=== PATIENT | female | born 1940 | race Caucasian/White ===

== ENCOUNTER 2016-06-22 11:58 | Observation (INO) | payer MEDICARE, BC ==
[2016-06-22] MEDS ORDERED: Sodium Chloride 0.9% 10 ML Syringe FLUSH PRN (12:10)
[2016-06-22] MEDS ORDERED: Aspirin 81 MG Tab.Chew PO ONE (12:12)
[2016-06-22] MEDS ORDERED: Morphine 4 MG/ML Syringe IVPUSH PRN (12:13)
[2016-06-22] MEDS: Nitroglycerin 0.4 MG Tab.SL SL PRN ×2 (12:20→12:37)
--- NOTE | 2016-06-22 12:22 | EDM.PDOC ---
ED HPI GENERAL MEDICAL PROBLEM - General Chief Complaint: Chest Pain Stated Complaint: PAIN; SOB Time Seen by Provider: 06/22/16 12:05 Source of Information: Reports: Patient History Limitations: Reports: No Limitations - History of Present Illness INITIAL COMMENTS - FREE TEXT/NARRATIVE: Felisha is a 75 year old female who presents to the ED today with c/o sudden onset of left sided chest pain that started at 0730 this morning. Patient reports pain as steady, sharp, radiates to left scapula region and left jaw. Patient endorses shortness of breath as well. Patient reports pain mildly increases with deep breath. She denies any cardiac hx, states had stress test/ echo 9 years ago, she has 2 siblings that have both had heart attacks. Patient denies smoking hx. Patient does have hx of HTN and high cholesterol and is on medication for both of these, she does not take any aspirin or blood thinners. She denies any known aneurysm hx or clotting hx. Patient denies any recent illness/vomiting/diarrhea/fever. Patient does endorse a cough which she reports is chronic secondary to her asthma hx. Onset: Today Onset Time: 07:30 Duration: Hour(s): Location: Reports: Chest Quality: Reports: Ache, Sharp Severity: Moderate Improves with: Reports: Rest, Other (sitting up) Associated Symptoms: Reports: Shortness of Breath Chest Pain Score (Numeric/FACES): 4 - Related Data Allergies Allergy/AdvReac Type Severity Reaction Status Date / Time fluticasone propionate Allergy Unknown Cannot Verified 06/22/16 12:14 [From Advair Diskus] Remember salmeterol xinafoate Allergy Unknown Cannot Verified 06/22/16 12:14 [From Advair Diskus] Remember Sulfa (Sulfonamide Allergy Rash Verified 06/22/16 12:14 Antibiotics) Home Meds: Home Meds Albuterol [Proventil HFA] 1 puff INH QID PRN 08/24/13 [History] Albuterol [Proventil Neb Soln] 0.083 mg NEB Q4HRRT PRN 08/24/13 [History] Fluticasone Propionate [Flovent] 2 puff IH BID 08/24/13 [History] Losartan/Hydrochlorothiazide [Hyzaar 50-12.5 Tablet] 1 each PO DAILY 08/24/13 [ History] Omeprazole [Prilosec] 20 mg PO BID 08/24/13 [History] Potassium Chloride 20 meq PO BID 08/24/13 [History] Theophylline Anhydrous [Theophylline] 300 mg PO DAILY 08/24/13 [History] Triamcinolone Acetonide [Triamcinolone Acetonide 0.1% Crm] 0 gm TOP TID [History] amLODIPine [Norvasc] 5 mg PO DAILY 08/24/13 [History] ED ROS GENERAL - Review of Systems Review Of Systems: See Below Constitutional: Reports: No Symptoms HEENT: Reports: No Symptoms Respiratory: Reports: Shortness of Breath Cardiovascular: Reports: Chest Pain Endocrine: Reports: No Symptoms GI/Abdominal: Reports: No Symptoms : Reports: No Symptoms Musculoskeletal: Reports: No Symptoms, Back Pain Skin: Reports: No Symptoms Neurological: Reports: No Symptoms Psychiatric: Reports: No Symptoms Hematologic/Lymphatic: Reports: No Symptoms Immunologic: Reports: No Symptoms ED EXAM, GENERAL - Physical Exam Exam: See Below Exam Limited By: No Limitations General Appearance: Alert, Anxious Ears: Normal External Exam Nose: Normal Inspection Throat/Mouth: Normal Inspection Head: Atraumatic Neck: Normal Inspection Respiratory/Chest: No Respiratory Distress, Lungs Clear, Normal Breath Sounds Cardiovascular: Normal Peripheral Pulses, Regular Rate, Rhythm, No Edema GI/Abdominal: Normal Bowel Sounds, Soft, Non-Tender Back Exam: Normal Inspection Extremities: Normal Inspection Neurological: Alert, Oriented, CN II-XII Intact Psychiatric: Anxious Skin Exam: Warm, Dry EKG INTERPRETATION Rhythm: NSR [place]: LAD-left axis deviation P-wave: present QRS: normal ST-T: normal QT: normal EKG Interpretation Comments: No acute ischemic findings. Course - Vital Signs Text/Narrative:: Felisha is a 75 year old female with a hx of HTN, high cholesterol, and Asthma who presents to the ED today with c/o sharp left sided chest pain that started at 0730 this morning. Patient reports pain has remained steady since that time. Please refer to HPI and focused exam. Concern given risk factors, including family hx of ACS. EKG was obtained on patient arrival which is negative for any acute ischemic findings. Patient was given 2 NTG which relieved her pain. She was also given 324 mg of aspirin and 4 mg of morphine. 1300-Initial troponin is undectable. Remaining blood work shows a mildly elevated BNP of 229 and a potassium of 3.5. AlkPhos elevated at 170. Awaiting D dimer result. Patient remains stable at this time. 1325-D Dimer elevated at 585, CT angio obtained and is negative for any PE. Small groundglass opacity in RUL. Mild distal esophageal dilations, likely secondary to hx of hiatal hernia repair. Heart score is 6. I feel at this time with patient's hx and Heart Score, she is appropriate for admission and serial troponins, patient will likely need outpatient stress on Saturday as long as stay here is uneventful. Patient agreeable to stay. Patient did have cardiac cath in 2011 with EF of 65-70% and otherwise clear coronary arteries. Patient at this time 1400, remains chest pain free. I discussed patient with Dr. Johnson, hospitalist, who has accepted patient for admission. Patient will be admitted in stable condition. Last Recorded V/S: Last Vital Signs Temp 36.0 C 06/22/16 12:06 Pulse 94 06/22/16 12:06 Resp 20 06/22/16 12:06 BP 160/88 H 06/22/16 12:37 Pulse Ox 97 06/22/16 12:06 - Orders/Labs/Meds Orders: Active Orders 24 hr Category Date Time Status Cardiac Monitoring [RC] .As Directed Care 06/22/16 12:12 Active EKG Documentation Completion [RC] ASDIRECTED Care 06/22/16 12:10 Active Oxygen Therapy Adult [Oxygen Therapy, ED] [RC] Care 06/22/16 12:12 Active ASDIRECTED Peripheral IV Care [RC] . DIRECTED Care 06/22/16 12:10 Active Ang Chest [CT] Stat Exams 06/22/16 13:14 Taken Iopamidol [Isovue-370 (76%)] Med 06/22/16 13:30 Active 100 ml IV . DIRECTED Morphine Med 06/22/16 12:13 Active 4 mg IVPUSH Q4H PRN Sodium Chloride 0.9% [Normal Saline] 100 ml Med 06/22/16 13:30 Active IV ASDIRECTED Sodium Chloride 0.9% [Saline Flush] Med 06/22/16 12:10 Active 10 ml FLUSH ASDIRECTED PRN Peripheral IV Insertion Adult [OM.PC] Routine Oth 06/22/16 12:10 Ordered EKG 12 Lead [EK] Stat Ther 06/22/16 12:10 Ordered Medication Orders Sodium Chloride (Normal Saline) 100 mls @ 4 mls/sec IV ASDIRECTED [facility] Last Admin: 06/22/16 13:25 Dose: 4 mls/sec Iopamidol (Isovue-370 (76%)) 100 ml IV . DIRECTED [facility] Last Admin: 06/22/16 13:25 Dose: 100 ml Morphine Sulfate (Morphine) 4 mg IVPUSH Q4H PRN PRN Reason: Chest Pain Sodium Chloride (Saline Flush) 10 ml FLUSH ASDIRECTED PRN PRN Reason: Keep Vein Open Labs: Laboratory Tests 06/22/16 06/22/16 06/22/16 Range/Units 12:10 12:10 12:10 WBC 8.0 (4.5-11.0) K/uL RBC 4.57 (3.30-5.50) M/uL Hgb 14.3 (12.0-15.0) g/dL Hct 41.5 (36.0-48.0) % MCV 91 (80-98) fL MCH 31 (27-31) pg MCHC 35 (32-36) % Plt Count 247 (150-400) K/uL Neut % (Auto) 53 (36-66) % Lymph % (Auto) 28 (24-44) % [place] % (Auto) 12 H (2-6) % Eos % (Auto) 6 H (2-4) % Baso % (Auto) 1 (0-1) % D-Dimer, Quantitative 585 H (0.0-400.0) ng/mL Sodium 144 (140-148) mmol/L Potassium 3.5 L (3.6-5.2) mmol/L Chloride 106 (100-108) mmol/L Carbon Dioxide 27 (21-32) mmol/L Anion Gap 14.5 H (5.0-14.0) mmol/L BUN 15 (7-18) mg/dL Creatinine 0.9 (0.6-1.0) mg/dL Est Cr Clr Drug Dosing 47.36 mL/min Estimated GFR (MDRD) > 60 (>60) Glucose 104 (74-106) mg/dL Calcium 8.6 (8.5-10.1) mg/dL Magnesium 1.9 (1.8-2.4) mg/dL Total Bilirubin 0.3 (0.2-1.0) mg/dL AST 22 (15-37) U/L ALT 27 (12-78) U/L Alkaline Phosphatase 170 H (46-116) U/L Troponin I < 0.017 (0.000-0.056) ng/mL Khb-A-[id number] Pept 229 H (5-125) pg/mL Total Protein 6.9 (6.4-8.2) g/dL Albumin 3.6 (3.4-5.0) g/dL Globulin 3.3 (2.3-3.5) g/dL Albumin/Globulin Ratio 1.1 L (1.2-2.2) Meds: Medications Generic Name Dose Route Start Last Admin Trade Name Freq PRN Reason Stop Dose Admin Sodium Chloride 100 mls @ 4 mls/sec 06/22/16 13:30 06/22/16 13:25 Normal Saline IV 4 mls/sec ASDIRECTED BETY Administration Iopamidol 100 ml 06/22/16 13:30 06/22/16 13:25 Isovue-370 (76%) IV 100 ml . DIRECTED BETY Administration Morphine Sulfate 4 mg 06/22/16 12:13 Morphine IVPUSH Q4H PRN Chest Pain Sodium Chloride 10 ml 06/22/16 12:10 Saline Flush FLUSH ASDIRECTED PRN Keep Vein Open Discontinued Medications Generic Name Dose Route Start Last Admin Trade Name Freamber PRN Reason Stop Dose Admin Aspirin 324 mg 06/22/16 12:12 06/22/16 12:19 Aspirin PO 06/22/16 12:13 324 mg ONETIME ONE Administration Nitroglycerin 0.4 mg 06/22/16 12:13 06/22/16 12:37 Nitrostat SL 06/22/16 12:24 0.4 mg Q5M PRN Administration Chest Pain Sodium Chloride 10 ml 06/22/16 13:17 06/22/16 13:25 Saline Flush FLUSH 06/22/16 13:18 10 ml ONETIME ONE Administration Departure - Departure Time of Disposition: 14:30 Disposition: Admitted As Inpatient 67 Condition: good Clinical Impression: Atypical chest pain Forms: ED Department Discharge - My Orders Last 24 Hours: My Active Orders 06/22/16 12:10 EKG Documentation Completion [RC] ASDIRECTED Peripheral IV Care [RC] . DIRECTED Sodium Chloride 0.9% [Saline Flush] 10 ml FLUSH ASDIRECTED PRN Peripheral IV Insertion Adult [OM.PC] Routine EKG 12 Lead [EK] Stat 06/22/16 12:12 Cardiac Monitoring [RC] .As Directed Oxygen Therapy Adult [Oxygen Therapy, ED] [RC] ASDIRECTED 06/22/16 12:13 Morphine 4 mg IVPUSH Q4H PRN 06/22/16 13:14 Ang Chest [CT] Stat 06/22/16 13:30 Iopamidol [Isovue-370 (76%)] 100 ml IV . DIRECTED Sodium Chloride 0.9% [Normal Saline] 100 ml IV ASDIRECTED - Assessment/Plan Last 24 Hours: My Active Orders 06/22/16 12:10 EKG Documentation Completion [RC] ASDIRECTED Peripheral IV Care [RC] . DIRECTED Sodium Chloride 0.9% [Saline Flush] 10 ml FLUSH ASDIRECTED PRN Peripheral IV Insertion Adult [OM.PC] Routine EKG 12 Lead [EK] Stat 06/22/16 12:12 Cardiac Monitoring [RC] .As Directed Oxygen Therapy Adult [Oxygen Therapy, ED] [RC] ASDIRECTED 06/22/16 12:13 Morphine 4 mg IVPUSH Q4H PRN 06/22/16 13:14 Ang Chest [CT] Stat 06/22/16 13:30 Iopamidol [Isovue-370 (76%)] 100 ml IV . DIRECTED Sodium Chloride 0.9% [Normal Saline] 100 ml IV ASDIRECTED
[2016-06-22] MEDS ORDERED: Sodium Chloride 0.9% 10 ML Syringe FLUSH ONE (13:17)
[2016-06-22] MEDS ORDERED: Sodium Chloride 0.9% 100 ML IV SCH (13:30)
[2016-06-22] MEDS ORDERED: Iopamidol 755 Mg/ML 100 ML Bottle IV SCH (13:30)
--- NOTE | 2016-06-22 13:58 | CT ---
Ang Chest INDICATION: R/O Clot, elevated D dimer, chest pain TECHNIQUE: CT chest performed with IV contrast using CTA protocol. 3D radial and/or 3D sagittal MS P images reconstructions were obtained and reviewed. DLP: 437 mGycm COMPARISON: None. FINDINGS: No evidence of pulmonary embolism. Scattered groundglass infiltrates in the lungs. 10 mm groundglass nodule in the right upper lobe, axial image 47. Postoperative changes at the gastroesophageal junction. There is a hiatal hernia. The esophagus is d ilated and fluid-filled. Coronary artery calcifications. No pleural effusions. Fatty replaced pancreas. Degenerative change in the thoracic spine and vertebroplasty changes at T7. IMPRESSION: 1. No evidence of pulmonary embolism. 2. Small ground glass nodule right upper lobe. Recommend follow-up CT chest without IV contrast in 3 months. 3. Ground glass infiltrates elsewhere in the lungs may represent mild pulmonary edema. 4. Postoperative changes at the GE junction, hiatal hernia, and dilated fluid-filled esophagus. Plea se correlate with surgical history. Discussed with ED provider mediately following the study.
--- NOTE | 2016-06-22 14:46 | PCM.HP ---
H&P History of Present Illness - General Date of Service: 06/22/16 Admit Problem/Dx: Admission Diagnosis/Problem Admission Diagnosis/Problem Chest pain Source of Information: Patient, Family, Provider History Limitations: Reports: No Limitations - History of Present Illness Initial Comments - Free Text/Narative: Felisha presents to the emergency room today with an episode of chest pain. Pain started earlier this morning, approximately 7 AM (about 5 hours before presentation). She describes this as a bandlike pressure/pain around her chest with the most intense sensation in the substernal area. She describes this as a moderate pain but did throughout the morning radiate to the left side of her chest and into her neck and jaw and into her left shoulder. She did feel short of breath when the pain was at its highest intensity. She did not report nausea , diaphoresis or palpitations. The pain started while she was doing her morning exercises which she tries to do most days. The pain did not improve with rest. She did not take anything at home to help with the pain. The pain was finally relieved after 2 nitroglycerin in the emergency room. She has had a similar but much less intense pain approximately 2 weeks ago. She has noticed that her heartburn has been worse the past couple of weeks but has not had difficulties with pain like this in the past. No fevers or chills. No cough. Mild ankle edema that progresses throughout the day and does better in the morning. Workup in the emergency room revealed an EKG with poor R-wave progression with a very slight change from previous but troponin was normal and vital signs have been stable. D-dimer was mildly elevated but CT pulmonary angiogram did not show a blood clot. The CT did show very mild possible pulmonary edema and a small hazy right lung nodule which was thought to be inflammatory. She is pain- free after 2 nitroglycerin. She'll be admitted for observation. Chest Pain Score (Numeric/FACES): 4 - Related Data Allergies/Adverse Reactions: Allergies Allergy/AdvReac Type Severity Reaction Status Date / Time fluticasone propionate Allergy Unknown Cannot Verified 06/22/16 12:14 [From Advair Diskus] Remember salmeterol xinafoate Allergy Unknown Cannot Verified 06/22/16 12:14 [From Advair Diskus] Remember Sulfa (Sulfonamide Allergy Rash Verified 06/22/16 12:14 Antibiotics) Home Medications: Home Meds Albuterol [Proventil HFA] 1 puff INH QID PRN 08/24/13 [History] Albuterol [Proventil Neb Soln] 0.083 mg NEB Q4HRRT PRN 08/24/13 [History] Fluticasone Propionate [Flovent] 2 puff IH BID 08/24/13 [History] Losartan/Hydrochlorothiazide [Hyzaar 50-12.5 Tablet] 1 each PO DAILY 08/24/13 [ History] Omeprazole [Prilosec] 20 mg PO BID 08/24/13 [History] Potassium Chloride 20 meq PO BID 08/24/13 [History] Theophylline Anhydrous [Theophylline] 300 mg PO DAILY 08/24/13 [History] Triamcinolone Acetonide [Triamcinolone Acetonide 0.1% Crm] 0 gm TOP TID [History] amLODIPine [Norvasc] 5 mg PO DAILY 08/24/13 [History] Past Medical History HEENT History: Reports: Impaired Vision Cardiovascular History: Reports: High Cholesterol, Hypertension Respiratory History: Reports: Asthma Gastrointestinal History: Reports: GERD Genitourinary History: Reports: Urinary Incontinence [employer] History: Reports: Dysfunctional Uterine Bleeding Musculoskeletal History: Reports: Arthritis Neurological History: Reports: Migraines Oncologic (Cancer) History: Reports: Other (See Below) Other Oncologic History: vocal cords Dermatologic History: Reports: Psoriasis - Infectious Disease History Infectious Disease History: Reports: Chicken Pox, Hepatitis A, Measles, Mumps - Past Surgical History HEENT Surgical History: Reports: Other (See Below) Other HEENT Surgeries/Procedures: 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 right hip Social & Family History - Family History Cardiac: Reports: CAD (sister, brother in his 60's, mom later in life) - Tobacco Use Smoking Status *Q: Never Smoker - Caffeine Use Caffeine Use: Reports: None - Alcohol Use Alcohol Use History: No - Recreational Drug Use Recreational Drug Use: No H&P Review of Systems - Review of Systems: Review Of Systems: See Below Free Text/Narrative: A complete 12 point review of systems was obtained. Pertinent positives and negatives are noted in the history of present illness. All other systems were reviewed and were negative except as noted. Exam - Exam Exam: See Below - Vital Signs Vital Signs: Last Vital Signs Temp 36.0 C 06/22/16 12:06 Pulse 80 06/22/16 13:50 Resp 15 06/22/16 13:50 BP 134/98 H 06/22/16 13:50 Pulse Ox 97 06/22/16 13:50 Weight: 77.111 kg - Exam Quality Assessment: Supplemental Oxygen General: Alert, Oriented, Cooperative. No: Mild Distress HEENT: Conjunctiva Clear, Mucosa Moist & [place]. No: Scleral Icterus Neck: Supple, Trachea Midline. No: Lymphadenopathy, JVD, Thyromegaly Lungs: Clear to Auscultation, Normal Respiratory Effort Cardiovascular: Regular Rate, Regular Rhythm, Other (mild tenderness with palpation of anterior chest ). No: Systolic Murmur Abdomen: Normal Bowel Sounds, Soft. No: Distention, Tenderness Back Exam: Normal Inspection, Full Range of Motion, Other (healed midline lumbar scar) Extremities: Normal Pulses, Edema (mild ankle edema). No: Cyanosis Skin: Warm, Dry Neuro Extensive - Mental Status: Alert, Oriented x3, Nl Response to Commands Neuro Extensive - Motor, Sensory, Reflexes: CN II-XII Intact. No: Dysarthria, Abnormal Motor, Tremor Psychiatric: Alert, Normal Affect - Patient Data Lab Results last 24 hrs: Laboratory Results - last 24 hr 06/22/16 06/22/16 06/22/16 Range/Units 12:10 12:10 12:10 WBC 8.0 (4.5-11.0) K/uL RBC 4.57 (3.30-5.50) M/uL Hgb 14.3 (12.0-15.0) g/dL Hct 41.5 (36.0-48.0) % MCV 91 (80-98) fL MCH 31 (27-31) pg MCHC 35 (32-36) % Plt Count 247 (150-400) K/uL Neut % (Auto) 53 (36-66) % Lymph % (Auto) 28 (24-44) % [place] % (Auto) 12 H (2-6) % Eos % (Auto) 6 H (2-4) % Baso % (Auto) 1 (0-1) % D-Dimer, Quantitative 585 H (0.0-400.0) ng/mL Sodium 144 (140-148) mmol/L Potassium 3.5 L (3.6-5.2) mmol/L Chloride 106 (100-108) mmol/L Carbon Dioxide 27 (21-32) mmol/L Anion Gap 14.5 H (5.0-14.0) mmol/L BUN 15 (7-18) mg/dL Creatinine 0.9 (0.6-1.0) mg/dL Est Cr Clr Drug Dosing 47.36 mL/min Estimated GFR (MDRD) > 60 (>60) Glucose 104 (74-106) mg/dL Calcium 8.6 (8.5-10.1) mg/dL Magnesium 1.9 (1.8-2.4) mg/dL Total Bilirubin 0.3 (0.2-1.0) mg/dL AST 22 (15-37) U/L ALT 27 (12-78) U/L Alkaline Phosphatase 170 H (46-116) U/L Troponin I < 0.017 (0.000-0.056) ng/mL Iyt-O-Ebomkmpjoew Pept 229 H (5-125) pg/mL Total Protein 6.9 (6.4-8.2) g/dL Albumin 3.6 (3.4-5.0) g/dL Globulin 3.3 (2.3-3.5) g/dL Albumin/Globulin Ratio 1.1 L (1.2-2.2) Result Diagrams: 06/22/16 12:10 06/22/16 12:10 Imaging Impressions last 24 hrs: CT pulmonary angiogram - images personally reveiwed - no PE. mild interstitial edema, hazy right nodule. no mass or infiltrate EKG INTERPRETATION EKG Date: 06/22/16 Rhythm: NSR Rate (beats/min): 99 Portal: LAD-left axis deviation P-wave: present QRS: normal ST-T: normal QT: normal EKG Interpretation Comments: poor R wave progression *Q Meaningful Use (ADM) - VTE *Q VTE Criteria *Q: - VTE Risk Assess *Q Each Risk Factor Represents 1 Point: None Total Score 1 Point Risk Factors: 0 Each Risk Factor Represents 2 Points: Age 60 - 74 Years Total Score 2 Point Risk Factors: 2 Each Risk Factor Represents 3 Points: None Total Score 3 Point Risk Factors: 0 - Stroke *Q Stroke Criteria *Q: - AMI *Q AMI Criteria *Q: - Problem List (1) Chest pain SNOMED Code(s): 99184717 ICD Code: R07.9 - CHEST PAIN, UNSPECIFIED Status: Acute Current Visit: Yes Qualifiers: Chest pain type: other chest pain Qualified Code(s): R07.89 - Other chest pain; R07.8 - Other chest pain (2) Essential hypertension SNOMED Code(s): 94780098 ICD Code: I10 - ESSENTIAL (PRIMARY) HYPERTENSION Status: Chronic Current Visit: Yes Problem List Initiated/Reviewed/Updated: Yes Orders Last 24hrs: Active Orders 24 hr Category Date Time Status Patient Status Manage Transfer [TRANSFER] Routine ADT 06/22/16 14:37 Ordered Cardiac Monitoring [RC] .As Directed Care 06/22/16 12:12 Active EKG Documentation Completion [RC] ASDIRECTED Care 06/22/16 12:10 Active Oxygen Therapy Adult [Oxygen Therapy, ED] [RC] Care 06/22/16 12:12 Active ASDIRECTED Peripheral IV Care [RC] . DIRECTED Care 06/22/16 12:10 Active Iopamidol [Isovue-370 (76%)] Med 06/22/16 13:30 Active 100 ml IV . DIRECTED Morphine Med 06/22/16 12:13 Active 4 mg IVPUSH Q4H PRN Sodium Chloride 0.9% [Normal Saline] 100 ml Med 06/22/16 13:30 Active IV ASDIRECTED Sodium Chloride 0.9% [Saline Flush] Med 06/22/16 12:10 Active 10 ml FLUSH ASDIRECTED PRN Peripheral IV Insertion Adult [OM.PC] Routine Oth 06/22/16 12:10 Ordered Resuscitation Status Routine Resus Stat 06/22/16 14:39 Ordered EKG 12 Lead [EK] Stat Ther 06/22/16 12:10 Ordered Medication Orders Sodium Chloride (Normal Saline) 100 mls @ 4 mls/sec IV ASDIRECTED BETY Last Admin: 06/22/16 13:25 Dose: 4 mls/sec Iopamidol (Isovue-370 (76%)) 100 ml IV . DIRECTED BETY Last Admin: 06/22/16 13:25 Dose: 100 ml Morphine Sulfate (Morphine) 4 mg IVPUSH Q4H PRN PRN Reason: Chest Pain Sodium Chloride (Saline Flush) 10 ml FLUSH ASDIRECTED PRN PRN Reason: Keep Vein Open Assessment/Plan Comment:: Assessment and plan - Chest pain - somewhat atypical but still has concerning features. She does have elevated risk factors including age, family history, high blood pressure and elevated cholesterol levels. She has noticed fatigue recently as well as some limited exercise status but has not had much in the way of chest pain other than today and one other minor episode which occurred at rest. Most recent risk stratification was about 5 years ago which showed a coronary angiogram with no evidence for disease. 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 Gastrointestinal issues such as esophageal reflux certainly would be in the differential with increased heartburn recently. -Serial troponins -Cardiac monitoring -Continue blood pressure management -Continue home proton pump inhibitor -Outpatient stress testing Essential hypertension - Blood pressure acceptably controlled at this time. -Continue home medications Maintenance issues - - DVT prophylaxis - SCDs - GI prophylaxis - PPI - Nutrition - regular diet - Fink catheter - not indicated CODE STATUS - full code Admission justification - patient will be referred observation status for chest pain rule out Disposition - anticipate discharge home tomorrow Primary care physician - Dr. Ubaldo Johnson M.D.
[2016-06-22] MEDS ORDERED: Acetaminophen 325 MG Tab PO PRN (15:10)
[2016-06-22] MEDS ORDERED: Ibuprofen 600 MG Tab PO PRN (15:10)
[2016-06-22] MEDS ORDERED: Polyethylene Glycol 3350 Powder 17 GM Packet PO PRN (15:10)
[2016-06-22] MEDS ORDERED: Ondansetron 4 MG Tab.DIS PO PRN (15:10)
[2016-06-22] MEDS ORDERED: OMEPRAZOLE 20 MG PO SCH (21:00)
[2016-06-22] MEDS ORDERED: Potassium Chloride 20 MEQ Tab.ER ** OWN MED PO SCH (21:00)
[2016-06-22] MEDS ORDERED: LOSARTAN PO SCH (21:00)
[2016-06-22] MEDS ORDERED: HYDROCHLOROTHIAZIDE PO SCH (21:00)
[2016-06-22] MEDS ORDERED: Albuterol 0.083% 2.5 MG/3 ML Neb Soln INH PRN (21:00)
[2016-06-22] MEDS ORDERED: Non-Formulary Medication 1 Each (Fluticasone Propionate [Flovent] 2 PUFF) IH SCH (21:00)
[2016-06-22] MEDS ORDERED: AMLODIPINE 5 MG PO SCH (21:00)
[2016-06-22] MEDS ORDERED: amLODIPine 5 MG Tab PO ONE (21:00)
[2016-06-23] MEDS ORDERED: OMEPRAZOLE 20 MG PO SCH (07:30)
[2016-06-23] MEDS ORDERED: Potassium Chloride 20 MEQ Tab.ER ** OWN MED PO SCH (08:00)
[2016-06-23 08:22] VITALS: BP 154/71
[2016-06-23] MEDS ORDERED: THEOPHYLLINE ANHYDROUS 300 MG PO SCH (09:00)
--- NOTE | 2016-06-23 09:21 | PCM.DCSUM1 ---
Discharge Summary - Hospital Course Brief History: 75-year-old female history of mild hypercholesterolemia, essential hypertension and a family history of heart disease who presented after an episode of intense chest pain. She was admitted for observation and further workup. - Discharge Data Discharge Date: 06/23/16 Discharge Disposition: Home, Self-Care 01 Condition: Stable - Discharge Diagnosis/Problem(s) (1) Chest pain SNOMED Code(s): 06581965 ICD Code: R07.9 - CHEST PAIN, UNSPECIFIED Status: Acute Current Visit: Yes Qualifiers: Chest pain type: other chest pain Qualified Code(s): R07.89 - Other chest pain; R07.8 - Other chest pain (2) Essential hypertension SNOMED Code(s): 99555896 ICD Code: I10 - ESSENTIAL (PRIMARY) HYPERTENSION Status: Chronic Current Visit: Yes - Patient Summary/Data Hospital Course: Felisha presented to the emergency room with fairly intense chest pain/pressure. Workup in the emergency room was reassuring and her pain resolved after a second nitroglycerin tablet. Given the intensity of the pain she was admitted for observation. Overnight she did not have any recurrence of the pain. Telemetry was normal. Blood pressure very mildly elevated in the 150s but otherwise vital signs were stable. She has not had recurrent episodes of the pain. She has had some belching and feels better after each belch. And this may be gastrointestinal in nature but I think given the intensity of the pain and recent difficulties with fatigue she would benefit from a stress test. We have set her up for a Lexiscan stress test to be completed Saturday morning. She will followup with Dr. Conner to get results. If the stress test is normal and she continues to have symptoms or recurrent episodes of pain I would recommend upper endoscopy because the CT scan did show some fluid in the esophagus. She is safe for outpatient management at this time. She will be discharged home with her family this morning. - Patient Instructions Diet: Heart Healthy Diet Activity: As Tolerated Driving: May Drive Today Showering/Bathing: May Shower Notify Provider of: Fever, Increased Pain, Nausea and/or Vomiting Other/Special Instructions: 1. You were in the hospital for observation after an episode of chest pain. There was no evidence that she had a heart attack. I am concerned that this may be a warning sign that there are blockages in your coronary arteries and recommended that we complete a stress test. You are scheduled for a Lexiscan stress test Saturday. Please arrive at the health care social worker unit at 7:15 AM. If the stress test is normal and you continue to have increased heartburn symptoms or recurrent episodes of the pain that brought you to the emergency room I would recommend upper endoscopy. This is a procedure where Dr. Zarate would advance a flexible tube with a camera through your mouth and down into the esophagus to look at the esophagus and stomach. 2. Please continue your home medications as previously prescribed. 3. Please seek medical attention if you develop recurrent episodes of your intense chest pain/pressure or you develop sudden onset of shortness of breath, diaphoresis or feel like you are going to pass out. - Discharge Plan Home Medications: Home Meds Albuterol [Proventil HFA] 1 puff INH QID PRN 08/24/13 [History] Albuterol [Proventil Neb Soln] 0.083 mg NEB Q4HRRT PRN 08/24/13 [History] Fluticasone Propionate [Flovent] 2 puff IH BID 08/24/13 [History] Losartan/Hydrochlorothiazide [Hyzaar 50-12.5 Tablet] 1 each PO DAILY 08/24/13 [ History] Omeprazole [Prilosec] 20 mg PO BID 08/24/13 [History] Potassium Chloride 20 meq PO BID 08/24/13 [History] Theophylline Anhydrous [Theophylline] 300 mg PO DAILY 08/24/13 [History] Triamcinolone Acetonide [Kenalog 0.1% Crm] 0 gm TOP TID 08/24/13 [History] amLODIPine [Norvasc] 5 mg PO DAILY 08/24/13 [History] Patient Handouts: Nonspecific Chest Pain Referrals: Mark Conner MD [Physician] - (f/u next Saturday or Saturday - f/u hospital stay for chest pain, stress test results and BP check) - Discharge Summary/Plan Comment DC Time >30 min.: No (25) - Patient Data Vitals - Most Recent: Last Vital Signs Temp 35.8 C 06/23/16 08:00 Pulse 69 06/23/16 08:00 Resp 19 06/23/16 08:00 BP 154/71 H 06/23/16 08:00 Pulse Ox 93 L 06/23/16 08:00 Weight - Most Recent: 77.111 kg I&O - Last 24 hours: Intake & Output 06/22/16 06/23/16 06/23/16 22:59 06:59 14:59 Intake Total 480 Output Total 500 1000 Balance -20 -1000 Lab Results - Last 24 hrs: Laboratory Results - last 24 hr 06/22/16 06/22/16 Range/Units 17:03 23:00 Troponin I < 0.017 < 0.017 (0.000-0.056) ng/mL Med Orders - Current: Current Medications Acetaminophen (Tylenol) 650 mg PO Q4H PRN PRN Reason: Pain (Mild 1-3)/fever Albuterol (Proventil Neb Soln) 2.5 mg INH Q4H PRN PRN Reason: Shortness of Breath Amlodipine Besylate (Norvasc) 5 mg PO DAILY@2099 [facility] Last Admin: 06/22/16 20:44 Dose: 5 mg Ibuprofen (Motrin) 600 mg PO Q6H PRN PRN Reason: Pain/Fever Non-Formulary Medication (Fluticasone Propionate [Flovent]) 2 puff IH BID [facility] Losartan/Hydrochlorothiazide [Hyzaar] 50-12.5mg * * Own Med 1 each PO DAILY@ 2099 [facility] Last Admin: 06/22/16 20:44 Dose: 1 each Non-Formulary Medication (Theophylline Anhydrous [Theophylline]) 300 mg PO DAILY [facility] Omeprazole [Prilosec ] 20mg Cap Own Med 20 mg PO BIDAC [facility] Last Admin: 06/23/16 07:55 Dose: 20 mg Ondansetron HCl (Zofran Odt) 4 mg PO Q6H PRN PRN Reason: Nausea able to take PO Polyethylene Glycol (Miralax) 17 gm PO DAILY PRN PRN Reason: Constipation Potassium Chloride (Klor-Con M20) 20 meq PO BIDMEALS [facility] Last Admin: 06/23/16 07:55 Dose: 20 meq Discontinued Medications Aspirin (Aspirin) 324 mg PO ONETIME ONE Stop: 06/22/16 12:13 Last Admin: 06/22/16 12:19 Dose: 324 mg Sodium Chloride (Normal Saline) 100 mls @ 4 mls/sec IV ASDIRECTED [facility] Last Admin: 06/22/16 13:25 Dose: 4 mls/sec Iopamidol (Isovue-370 (76%)) 100 ml IV . DIRECTED [facility] Last Admin: 06/22/16 13:25 Dose: 100 ml Morphine Sulfate (Morphine) 4 mg IVPUSH Q4H PRN PRN Reason: Chest Pain Nitroglycerin (Nitrostat) 0.4 mg SL Q5M PRN PRN Reason: Chest Pain Stop: 06/22/16 12:24 Last Admin: 06/22/16 12:37 Dose: 0.4 mg Omeprazole [Prilosec ] 20mg Cap Own Med 20 mg PO BID [facility] Last Admin: 06/22/16 20:31 Dose: 20 mg Potassium Chloride (Klor-Con M20) 20 meq PO BID [facility] Last Admin: 06/22/16 20:30 Dose: 20 meq Sodium Chloride (Saline Flush) 10 ml FLUSH ASDIRECTED PRN PRN Reason: Keep Vein Open Sodium Chloride (Saline Flush) 10 ml FLUSH ONETIME ONE Stop: 06/22/16 13:18 Last Admin: 06/22/16 13:25 Dose: 10 ml *Q Meaningful Use (DIS) - VTE *Q VTE Criteria *Q: - Stroke *Q Stroke Criteria *Q: - AMI *Q AMI Criteria *Q:
== END 2016-06-23 10:37 | disposition home or self-care (01) ==
LOC: JP.ED 11:58 → JP.ICU 14:37
PROVIDERS: ADMIT Internal Medicine; ATTEND Internal Medicine
DX: R07.89 Other chest pain (principal); I10 Essential (primary) hypertension; Z79.899 Other long term (current) drug therapy; Z88.2 Allergy status to sulfonamides; Z88.8 Allergy status to other drugs, medicaments and biological substances; E78.00 Pure hypercholesterolemia, unspecified; J45.909 Unspecified asthma, uncomplicated; K21.9 Gastro-esophageal reflux disease without esophagitis; Z90.710 Acquired absence of both cervix and uterus; Z98.890 Other specified postprocedural states; Z96.649 Presence of unspecified artificial hip joint
CPT/HCPCS: 36415; 71275; 80053; 83735; 83880; 84484; 85025; 85379; 93005; 99285; A9270; G0378; J7030; J7050; Q9967; 93010; 96361; 96374; 99217; 99219

== ENCOUNTER 2016-07-12 05:20 | Day surgery (SDC) | payer MEDICARE, BC ==
[2016-07-12] MEDS ORDERED: Dextrose 5%-Lactated Ringers 1,000 ML IV SCH (06:30)
[2016-07-12] MEDS ORDERED: Propofol 200 MG/20 ML SDV ONE (07:04)
[2016-07-12] MEDS ORDERED: Glycopyrrolate 0.2 MG/ML 2 ML SYRINGE IVPUSH ONE (07:15)
[2016-07-12 08:40] VITALS: BP 161/83
--- NOTE | 2016-07-13 12:24 | OR ---
DATE OF PROCEDURE: 07/12/2016 PREOPERATIVE DIAGNOSIS: Gastroesophageal reflux disease. POSTOPERATIVE DIAGNOSES: 1. 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 2. Mild antral gastritis. OPERATIVE PROCEDURES: Esophagogastroduodenoscopy with; 1. Biopsies of esophagogastric junction for histologic evaluation. 2. Biopsies of antrum for CLOtest. ANESTHESIA: IV sedation. INDICATIONS FOR PROCEDURE: This is a 75-year-old female referred for upper endoscopy to evaluate her gastroesophageal reflux disease. She has had longstanding reflux disease, which up until recently was treated with omeprazole 20 mg b.i.d. She recently saw an ENT person who, on examination, felt she was probably having reflux affecting her hypopharynx and laryngeal area, and was started on Zantac. She feels this is helping somewhat in terms of improved symptom control. Plan is to proceed with upper GI endoscopy with biopsies as indicated. Potential risks including bleeding and perforation were discussed, and the patient wishes to proceed. DETAILS OF PROCEDURE: The patient was taken to the operating room and placed in a left lateral decubitus position. IV sedation was administered, after which, the upper GI endoscope was passed orally through the length of the esophagus and into the stomach with retroflexion view of the fundus, thereafter through the pyloric channel and into the proximal duodenum. Findings included some mild redness in the hypopharynx and laryngeal areas. Upper esophageal sphincter and esophageal body were unremarkable, other than small amount of retained liquid and little bit of solid food within the distal esophagus. The patient was noted to have roughly a 6-cm hiatal hernia and had a confluent upward extension of the gastroesophageal mucosal line for about 1 cm above the upper gastric fold. This was confluent circumferential upward extension. There was no plaque formation or other signs of neoplastic change per se and no stricturing present. Within the stomach, there was also small amount of retained food. There was some mild redness in the antrum. Otherwise, the duodenum at the junction of third and fourth portions was unremarkable. At this point, biopsies were obtained from the antrum and sent for CLOtest for H. pylori. Multiple biopsies were then obtained from esophagogastric junction and sent for histologic evaluation. Minimal bleeding from the biopsy sites was seen and the procedure then concluded. The plan will be to have the patient continue the present medical regimen, and we will see her back this coming Saturday to discuss long-term treatment options. Given the retained food in the stomach, one would be a little bit more vary than usual as far as antireflux procedure as we may be dealing to some extent some impaired gastric emptying. It might be if she remains symptomatic worthwhile getting something to augment gastric emptying before considering anything surgical. Lj Zarate MD /[id number]
== END 2016-07-12 08:50 | disposition home or self-care (01) ==
LOC: JP.SDS 05:20
PROVIDERS: ATTEND Surgery
DX: K29.50 Unspecified chronic gastritis without bleeding (principal); K44.9 Diaphragmatic hernia without obstruction or gangrene; K21.9 Gastro-esophageal reflux disease without esophagitis; Z88.2 Allergy status to sulfonamides; Z88.8 Allergy status to other drugs, medicaments and biological substances
CPT/HCPCS: 43239; 87081; J2704; J7042; 88305; 88312

== ENCOUNTER 2016-08-13 07:30 | Inpatient (IN) | payer MEDICARE, BC ==
[~2016-08-13 07:30] MED LIST: Bupivacaine 0.5%/EPINEPHrine 1:200,000 50 ML MDV ONE; Ropivacaine 40 ML, Dexamethasone 8 MG, EPINEPHrine 0.4 MG, Sodium Chloride 0.9% 37.6 ML NERVRT SCH; cefOXitin 2 GM in Sodium Chloride 0.9% 50 ML IV ONE
[2016-08-13] MEDS ORDERED: Celecoxib 200 MG Cap PO ONE (09:00)
[2016-08-13] MEDS ORDERED: Scopolamine 1.5 MG Transdermal Patch TOP SCH (09:00)
[2016-08-13] MEDS ORDERED: Albuterol/Ipratropium 3.0-0.5 MG/3 ML Neb Soln INH ONE (09:00)
[2016-08-13] MEDS ORDERED: Acetaminophen 325 MG Tab PO ONE (09:00)
[2016-08-13] MEDS ORDERED: Gabapentin 100 MG Cap PO ONE ×2 (09:00)
[2016-08-13] MEDS ORDERED: Dextrose 5%-Lactated Ringers 1,000 ML IV SCH (09:30)
[2016-08-13] MEDS ORDERED: Acetaminophen 500 MG Tab PO ONE (09:30)
[2016-08-13] MEDS ORDERED: cefOXitin 2 GM Vial ONE (09:35)
[2016-08-13] MEDS ORDERED: Lidocaine 0.4%/D5W 2 GM/500 ML BAG IV ONE (11:00)
[2016-08-13] MEDS ORDERED: Ketamine 500 MG/5 ML MDV IV ONE (11:00)
[2016-08-13] MEDS ORDERED: Lidocaine 2% 100 MG/5 ML Syringe IVPUSH ONE (11:00)
[2016-08-13] MEDS ORDERED: fentaNYL 250 MCG/5 ML SDV ONE (12:31)
[2016-08-13] MEDS ORDERED: Succinylcholine/Normal Saline 200 MG/10 ML Syringe ONE (12:32)
[2016-08-13] MEDS ORDERED: Ondansetron 4 MG/2 ML SDV ONE (12:32)
[2016-08-13] MEDS ORDERED: Midazolam 1 MG/ML 2 ML SDV ONE (12:32)
[2016-08-13] MEDS ORDERED: Neostigmine Methylsulfate 1 MG/ML 5 ML Syringe ONE (12:32)
[2016-08-13] MEDS ORDERED: Propofol 200 MG/20 ML SDV ONE (12:32)
[2016-08-13] MEDS ORDERED: Dexamethasone 4 MG/ML SDV ONE (12:32)
[2016-08-13] MEDS ORDERED: Rocuronium 50 MG/5 ML Vial ONE (12:32)
[2016-08-13] MEDS: cefOXitin 2 GM in Sodium Chloride 0.9% 50 ML IV ONE ×2 (12:37→17:28)
[2016-08-13] MEDS ORDERED: Phenylephrine 1% 10 MG/ML SDV ONE (13:38)
[2016-08-13] MEDS ORDERED: Sodium Chloride 0.9% 10 ML ONE (13:38)
[2016-08-13] MEDS ORDERED: diphenhydrAMINE 50 MG/ML SDV IVPUSH PRN (16:59)
[2016-08-13] MEDS ORDERED: Labetalol 20 MG/4 ML Syringe IVPUSH PRN (16:59)
[2016-08-13] MEDS ORDERED: Metoclopramide 10 MG/2 ML SDV IVPUSH PRN (16:59)
[2016-08-13] MEDS ORDERED: Ondansetron 4 MG/2 ML SDV IVPUSH PRN (16:59)
[2016-08-13] MEDS ORDERED: hydrOXYzine HCl 50 MG/ML SDV IM PRN (16:59)
[2016-08-13] MEDS ORDERED: Albuterol/Ipratropium 3.0-0.5 MG/3 ML Neb Soln INH PRN (16:59)
[2016-08-13] MEDS ORDERED: SCOPOLAMINE PATCH ASK TOP SCH (16:59)
[2016-08-13] MEDS ORDERED: Naloxone 0.4 MG/ML SDV IV PRN (17:03)
[2016-08-13] MEDS ORDERED: HYDROmorphone/Normal Saline 15 MG/30 ML PCA IV PRN (17:03)
[2016-08-13] MEDS: HYDROmorphone 1 MG/ML Syringe IVPUSH PRN (17:36)
[2016-08-13] MEDS: cefOXitin 2 GM in Sodium Chloride 0.9% 50 ML IV SCH ×2 (17:47→23:22)
[2016-08-13] MEDS ORDERED: MVI, Adult with Vitamin K 10 ML, Thiamine 200 MG, Chromium/Copper/Mang/Selen/Zn 1 ML in... IV SCH ×4 (18:00)
[2016-08-13] MEDS: Pantoprazole 40 MG Vial IVPUSH SCH (18:17)
[2016-08-13] MEDS: Acetaminophen Soln 650 MG/20.3 ML UD Cup PO SCH ×2 (18:18→23:17)
[2016-08-13] MEDS: Lidocaine 0.4%/D5W 2 GM/500 ML BAG IV SCH (18:43)
[2016-08-13] MEDS: Heparin Sodium 5,000 Units/ML Vial SUBCUT SCH (20:03)
[2016-08-13] MEDS: Albuterol/Ipratropium 3.0-0.5 MG/3 ML Neb Soln INH SCH (20:26)
[2016-08-13] MEDS: Gabapentin 250 MG/5 ML Solution ML 470 ML Bottle PO SCH (20:26)
[2016-08-14] MEDS: Dextrose 5%-Lactated Ringers 1,000 ML IV SCH ×2 (00:45→12:21)
[2016-08-14] MEDS ORDERED: Iohexol 647 MG/ML 50 ML SDV PO SCH (03:45)
[2016-08-14] MEDS: Acetaminophen Soln 650 MG/20.3 ML UD Cup PO SCH ×3 (05:15→18:19)
[2016-08-14] MEDS: Lidocaine 0.4%/D5W 2 GM/500 ML BAG IV SCH (05:15)
[2016-08-14] MEDS: cefOXitin 2 GM in Sodium Chloride 0.9% 50 ML IV SCH ×3 (05:15→18:17)
[2016-08-14] MEDS: Albuterol/Ipratropium 3.0-0.5 MG/3 ML Neb Soln INH SCH ×4 (07:59→20:06)
[2016-08-14] MEDS: Celecoxib 200 MG Cap PO SCH (08:01)
[2016-08-14] MEDS: Heparin Sodium 5,000 Units/ML Vial SUBCUT SCH ×2 (08:01→20:06)
[2016-08-14] MEDS: SCOPOLAMINE PATCH CHECK TOP SCH (08:02)
[2016-08-14] MEDS: Gabapentin 250 MG/5 ML Solution ML 470 ML Bottle PO SCH ×3 (09:26→20:09)
[2016-08-14] MEDS: Magnesium Sulfate/Water 2 GM in Premix Bag 1 BAG IV SCH ×3 (10:25→21:39)
[2016-08-14] MEDS ORDERED: Potassium Phosphates 25 MMOLE in Sodium Chloride 0.9% 500 ML IV ONE (10:30)
[2016-08-14] MEDS: Theophylline 300 MG Tab.ER PO SCH (10:30)
[2016-08-14] MEDS: amLODIPine 5 MG Tab PO SCH (10:30)
[2016-08-14] MEDS: Losartan 50 MG Tab PO SCH (10:31)
[2016-08-14] MEDS: Hydrochlorothiazide 12.5 MG Cap PO SCH (10:32)
[2016-08-14] MEDS: HYDROmorphone 1 MG/ML Syringe IVPUSH PRN (12:14)
[2016-08-14] MEDS: FLOVENT 220 MCG INH SCH ×2 (12:30→20:07)
[2016-08-14] MEDS ORDERED: Dextrose 5%-Lactated Ringers 1,000 ML IV SCH ×2 (13:00→18:00)
[2016-08-14] MEDS ORDERED: Potassium Phosphates 20 MMOLE in Sodium Chloride 0.9% 250 ML IV ONE (15:00)
[2016-08-14] MEDS ORDERED: MVI, Adult with Vitamin K 10 ML, Thiamine 200 MG, Chromium/Copper/Mang/Selen/Zn 1 ML in... IV SCH ×4 (18:00)
[2016-08-14] MEDS: Pantoprazole 40 MG Vial IVPUSH SCH (18:21)
[2016-08-15] MEDS: cefOXitin 2 GM in Sodium Chloride 0.9% 50 ML IV SCH ×3 (00:01→11:55)
[2016-08-15] MEDS: Acetaminophen Soln 650 MG/20.3 ML UD Cup PO SCH ×5 (00:02→23:42)
[2016-08-15] MEDS: Magnesium Sulfate/Water 2 GM in Premix Bag 1 BAG IV SCH ×4 (03:33→21:01)
[2016-08-15] MEDS: Albuterol/Ipratropium 3.0-0.5 MG/3 ML Neb Soln INH SCH ×4 (07:26→20:53)
[2016-08-15] MEDS: FLOVENT 220 MCG INH SCH ×2 (08:00→20:55)
[2016-08-15] MEDS: Celecoxib 200 MG Cap PO SCH (08:03)
[2016-08-15] MEDS: Heparin Sodium 5,000 Units/ML Vial SUBCUT SCH ×2 (08:03→19:38)
[2016-08-15] MEDS: Hydrochlorothiazide 12.5 MG Cap PO SCH (08:04)
[2016-08-15] MEDS: Losartan 50 MG Tab PO SCH (08:04)
[2016-08-15] MEDS: Theophylline 300 MG Tab.ER PO SCH (08:05)
[2016-08-15] MEDS: amLODIPine 5 MG Tab PO SCH (08:06)
[2016-08-15] MEDS: Gabapentin 250 MG/5 ML Solution ML 470 ML Bottle PO SCH ×3 (08:12→20:53)
[2016-08-15] MEDS ORDERED: Cyanocobalamin (Vitamin B12) 1,000 MCG/ML SDV IM ONE (09:00)
[2016-08-15] MEDS: HYDROmorphone 1 MG/ML Syringe IVPUSH PRN (09:09)
[2016-08-15] MEDS: SCOPOLAMINE PATCH CHECK TOP SCH (09:12)
--- NOTE | 2016-08-15 09:25 | PN ---
DATE OF SERVICE: 08/15/2016 SUBJECTIVE: Felisha is postoperative day #2. She is on step one with milk. Her activity is good. Her pain is controlled. She has no questions or concerns. OBJECTIVE: GENERAL: Felisha Calle is a 75-year-old female. VITAL SIGNS: TPR 97.5, 72, 16, blood pressure 151/79. HEENT: Negative. NECK: Supple. HEART: Regular rate and rhythm. LUNGS: Clear. ABDOMEN: Dressings dry and intact. EM drains x2 have put out 25 and 55 mLs of a light pink serous drainage. EXTREMITIES: Without peripheral edema. ASSESSMENT: Diagnostic laparoscopy, takedown of adhesions, and: 1. a. Repair of recurrent paraesophageal diaphragmatic hernia. b. Esophagogastrectomy with Amor-en-Y, esophagojejunostomy, and excision. c. Excision of the portion of the left lobe of the liver and excision of mediastinal lipoma for large recurrent paraesophageal hernia with deserolization, adherent stomach and portion of the left lobe of liver, and umbilical hernia and mediastinal lipoma. Date of surgery 08/13/2016. PLAN: 1. Saline lock IV. 2. Prescription for K acetate 60 mEq IV today. 3. Dressing off. 4. May shower. 5. Good pulmonary toilet. 6. We will evaluate p.r.n. or in a.m. 7. May discharge in a.m. Dixie Warner PA-C /[id number]
--- NOTE | 2016-08-15 09:26 | CR ---
Status post Amor-en-Y. Surgical drains. Contrast remains in the distal esophagus on 15 minute film. No gross evidence for leakage.
--- NOTE | 2016-08-15 09:52 | PN ---
DATE OF SERVICE: 08/14/2016 The patient has been clinically stable overnight. No major problems were noted. Urine output has been fairly good. The creatinine is 1.6, up a little bit. We will continue the IV at a fairly fast rate during the day today. Of note, BNP is low so we have some room in that regard. Otherwise, we will restart some of her oral medications and Step 1 diet. Lj Zarate MD /[id number]
[2016-08-15] MEDS: Potassium Acetate 20 MEQ, Lidocaine 1% 2 ML in Sodium Chloride 0.9% 100 ML IV SCH ×3 (10:21→15:28)
[2016-08-15] MEDS ORDERED: Pantoprazole 40 MG Tab.CR PO SCH (21:00)
[2016-08-16] MEDS: Magnesium Sulfate/Water 2 GM in Premix Bag 1 BAG IV SCH (03:09)
[2016-08-16] MEDS: Acetaminophen Soln 650 MG/20.3 ML UD Cup PO SCH (05:24)
[2016-08-16] MEDS: HYDROmorphone 1 MG/ML Syringe IVPUSH PRN (07:26)
[2016-08-16] MEDS: FLOVENT 220 MCG INH SCH (07:58)
[2016-08-16] MEDS: Albuterol/Ipratropium 3.0-0.5 MG/3 ML Neb Soln INH SCH (07:58)
[2016-08-16] MEDS: Celecoxib 200 MG Cap PO SCH (08:12)
[2016-08-16] MEDS: Losartan 50 MG Tab PO SCH (08:12)
[2016-08-16] MEDS: Gabapentin 250 MG/5 ML Solution ML 470 ML Bottle PO SCH (08:13)
[2016-08-16] MEDS: amLODIPine 5 MG Tab PO SCH (08:13)
[2016-08-16] MEDS: Heparin Sodium 5,000 Units/ML Vial SUBCUT SCH (08:13)
[2016-08-16] MEDS: Hydrochlorothiazide 12.5 MG Cap PO SCH (08:13)
[2016-08-16] MEDS: Theophylline 300 MG Tab.ER PO SCH (08:13)
[2016-08-16 08:14] VITALS: BP 137/78
--- NOTE | 2016-08-16 12:07 | OR ---
CORRECTED COPY DATE OF PROCEDURE: 08/13/2016 PREOPERATIVE DIAGNOSIS: Recurrent marked gastroesophageal reflux disease related to large recurrent paraesophageal hernia. POSTOPERATIVE DIAGNOSES: 1. Large recurrent paraesophageal hernia with densely adherent stomach and portion of the left lobe of the liver into the mediastinum. 2. Mediastinal lipoma. OPERATIVE PROCEDURE: Diagnostic laparoscopy with takedown of adhesions. 1. a. Repair of recurrent paraesophageal hernia (08083). b. Esophagogastrectomy with Amor-en-Y esophagojejunostomy (63887). c. Excision of a portion of the left lobe of liver (08599). d. Excision of mediastinal lipoma (84101). ANESTHESIA: General. FILM MASKER: Dixie Warner PA-C. INDICATION FOR PROCEDURE: This is a 75-year-old, roughly 20 years status post previous laparoscopic Ba fundoplication, up until recently she has done well. Over the last year or two, she had noticed increasing problems with heartburn now, which has become quite severe. Recent endoscopy revealed a large recurrent hiatal hernia, and given the degree of symptoms, the plan at this point will be to proceed with a diagnostic laparoscopy, laparotomy if necessary, and then take down of the previous Ba fundoplication and associated adhesions, reduction of the hernia with repair of it, and either redo Ba fundoplication or if that does not appear to be feasible due to damage to the gastric fundus, then we would proceed with a resectional procedure with high proximal gastrectomy with Amor-en-Y reconstruction, which would effectively divert the GI contents distally, and crack the problem with the reflux. Potential risks of the procedure including bleeding, infection, injury to underlying viscera, leaks from any possible GI tract closures, possibility of significant weight loss if a resectional procedure is required, as well as the need to maintain vigilance in terms of minimal vitamin and dietary requirements if the resectional procedure is gone over, were all reviewed, and finally, in general the possibility of cardiopulmonary, septic, or hemorrhagic complications leading to were gone over and the patient wishes to proceed. DETAILS OF PROCEDURE: The patient was taken to the operating room after general endotracheal anesthesia was induced, and was placed in a lithotomy position. Bilateral transverse abdominis plane blocks were then placed with our standard regimen of ropivacaine, dexamethasone, epinephrine, and saline. Bilateral subcostal blocks were placed with continuous ultrasound guidance, without evident difficulty. Following this, the abdomen was prepped and draped, a transverse incision of 15 cm inferior, 5 cm left of xiphoid process was made, and peritoneal cavity entered under direct vision with Optiview trocar. Following this eventually, five additional trocars were placed across the upper and mid abdomen. There were some omental adhesions to the anterior abdominal wall, both in the area around the midline and in the previous left subcostal site which were taken down with Harmonic scalpel. As one elevated the liver, an extensive dissection was undertaken. As expected, the patient had a complex paraesophageal hernia. There was prolapse of much of the stomach including the previous wrap up into the mediastinum as well as some omentum and a tongue of the left lobe of the liver was actually also densely adherent up into the mediastinum. This was all gradually dissected down primarily with Harmonic scalpel dissection aided with some staple firings at the areas of thicker tissue that may be prone to prone to bleeding retracting the mediastinum. The contents were all dissected downward. During the course of this, a portion of the left lobe of liver, which would be the tip of segments II and III were significantly avascularized and that area of the liver was resected. As one took down the fundoplication near the ,there was a large amount of deserosalization and relatively poor blood supply to the gastric fundus, and this appeared to mandate a resectional procedure as noted in the preoperative discussion. During the course of the dissection, a mediastinal lipoma was encountered, this was excised, and sent for pathologic review as well. Once the contents were reduced back down into the abdomen, the esophageal length was such that it became clear to be able to do anastomosis between the EG junction and distal esophagus with some intra-abdominal vantage point. As one began dissecting the area of the gastric cardia that again was quite densely scarred, and a clean plane of dissection was then actually slightly above the esophagogastric junction. Once this was established circumferentially, that area was then divided with a set of OLIVIA black load staple lines. The poorly vascularized segment of the stomach was then sequentially excised using the OLIVIA staple load as well and two small pieces and one larger segment of the stomach and distal most esophagus were obtained. Once this dissection was completed, the very tip of the divided esophagus appeared to be somewhat ischemic, and three quarters of the additional esophagus was resected up to point where there was a circumferential good blood supply. This also was done with a OLIVIA black load. The proximal most esophagus resection was then sent as a separate specimen. At this point, the diaphragmatic hernia repair was accomplished with a series of 0 Ethibond sutures, reinforced with PTFE pledgets. The patient actually had fairly good muscular crura but there was a small wide separation and they did come together nicely and this was taken down the point where the esophagus came through the crural repair with no significant compression. There was also very little in the way of extra diameter around the esophagus. At this point, attention was taken to the formation of the Amor limb. There were some additional adhesions between the omentum and the pelvis which were taken down with Harmonic scalpel. The omentum was then divided up to the midline at the level of the transverse colon and this was accomplished with the Harmonic Scalpel. The ligament of Treitz was then identified. The patient is somewhat obese, but below would typically receive a gastric bypass. We therefore selected quite conservative limb lengths and formation of the Amor limb. The biliary pancreatic limb was marked out at 30 cm from the ligament of Treitz, was divided with the OLIVIA stapler, and the Amor limb was then marked out 100 cm. At that level, the [id number] enteroenterostomy was accomplished with the internal firing of the Endo-OLIVIA 60 mm stapler, opening was then closed transversely with the same stapler, the angles anastomosed, and mesenteric defect approximated with some 0 Ethibond stitch along with fibrin sealant. The Amor limb had a few centimeters additionally trimmed at the distal most aspect with Harmonic scalpel. This then allowed mobilization of the Amor limb up to the level of the divided esophagus with no significant tension. Care was maintained to continue adequate orientation of the small bowel mesentery during the manipulation of the small bowel up to the distal esophagus. The anvil of a 25 mm EEA stapler was attached to [place] sump type tube and then brought down through the mouth, and taken out through small opening made in the divided esophagus allowing the anvil likewise to be pulled down to the divided esophagus. The Amor limb was then opened and the body of the EEA stapler passed several centimeters into the Amor limb, brought up the anvil and then united with it, thus creating the esophagojejunostomy. Upon removal of stapler, double donuts of mucosa were noted within it. The small bowel was closed off with a vascular staple line. The esophagojejunostomy was reinforced with multiple 3-0 Vicryl seromuscular stitches and then reinforced with fibrin sealant as well. A leak test was accomplished with an injection of 120 mL of air in the distal esophagus while the anastomosis was submerged with antibiotic- containing saline solution. No leaks were identified. At this point, the small bowel area was once again inspected, no bleeding or other problems noted. Two Carlos-Lee drains were placed through the left subcostal trocar sites, one on each side of the esophagojejunostomy and to that point, no further problems were noted. Trocars were removed. The peritoneal cavity was deflated. Incisions were closed with 0 Vicryl stitch at the fascia level at the 12 mm ports and the skin at each site with 4-0 Vicryl skin stitch. Dressing was applied. The patient was taken to the recovery room in satisfactory condition. There were no other complications. Physician veterinary assistant technician, Dixie Warner, played an essential role in assisting in this case, helping to position the patient, retract structures as needed, and suturing and cutting sutures when indicated. Her presence improved patient safety and decreased operative time. Lj Zarate MD /[id number]
--- NOTE | 2016-08-17 02:07 | DISCH ---
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 DISCHARGE DIAGNOSES: Diagnostic laparoscopy: 1. Takedown of adhesions. 2. Repair of recurrent paraesophageal diaphragmatic hernia. 3. Esophagogastrectomy with Amor-en-Y, esophagojejunostomy, and excision of a portion of the left lobe of liver, and excision of mediastinal lipoma for recurrent paraesophageal hernia with de-sterilization of adherent stomach and portion of the left lobe of liver, and umbilical hernia, excision of mediastinal lipoma. HISTORY: Felisha Calle is a 75-year-old female with longstanding history of GERD refractory to medical management. After preoperative evaluation and discussion of possible risks and possible complications, she wished to proceed with surgical procedure. HOSPITAL COURSE: Felisha had her surgery on 08/13/2016. She had no operative complications on postop day #1. She was started on a step 1 gastric bypass diet with milk. Her upper GI was normal. Her activity was good. Her pain was well managed. On postop day #2, Felisha had dietary teaching. She received K acetate 60 mEq and her vital signs did remain stable. On postop day #3, she was able to be discharged home. PHYSICAL EXAMINATION: GENERAL: Felisha Calle is a 75-year-old female. VITAL SIGNS: Height is 5 feet 4.17 inches, weight is 172 pounds. TPR is 97.5, 67, 20. Blood pressure 137/73. HEENT: Negative. NECK: Supple. HEART: Regular rate and rhythm. LUNGS: Clear. ABDOMEN: Incisions look good, 4x4s over EM drain sites and abdominal binder is on. EXTREMITIES: Without peripheral edema. DISPOSITION: Discharged to home. CONDITION: Stable and improving. FOLLOWUP APPOINTMENT: With Dixie Warner PA-C on 08/22/2016 at 9:00 a.m. HOME MEDICATIONS: 1. Tylenol 650 mg q.6 hours, it is 650/20.3 mL scheduled every 6 hours. 2. Celebrex 200 mg p.o. daily #14. 3. Dilaudid 2 mg take one every 4 hours p.r.n. pain #10. 4. She is to resume her home medication of:. a. Proventil inhaler 1 puff 4 times a day p.r.n. b. Benzonatate 200 mg 3 times a day p.r.n. cough. c. Flovent HFA 220 mcg 2 puffs twice daily. d. Losartan. e. Hydrochlorothiazide 50/12.5 one daily. f. Ocuvite eye and multivitamin tablet 1 tablet daily. g. Omeprazole 20 mg twice daily. h. Potassium chloride 20 mEq twice daily. i. Zocor 40 mg oral daily. j. Theophylline 300 mg oral daily. k. Triamcinolone cream 1 applicator topical 3 times a day. l. Norvasc 5 mg oral daily. m. Metronidazole 0.75% gel 1 topical twice daily. DIET AFTER DISCHARGE: Step 1 with milk and protein shakes for 2 weeks. ACTIVITY: As tolerated. No lifting greater than 10 pounds for 2 weeks. DRIVING: Do not drive while on pain medication. SHOWER/BATHING: May shower. Notify provider if any fever, nausea, or vomiting. WOUND INCISION CARE: Keep site clean and dry. Wear abdominal binder for 2 weeks and then as tolerated. SPECIAL INSTRUCTION: Use incentive spirometer 10 times every hour while awake.
== END 2016-08-16 11:35 | disposition home or self-care (01) | DRG 328 ==
LOC: EDSTATUS 07:30 → JP.MS 07:30 → JP.SDS 08:32 → JP.2SS 17:25
PROVIDERS: ADMIT Surgery; ATTEND Surgery
PROC: 0BQS4ZZ (ICD-10-PCS; principal; 2016-08-13)
PROC: 0DNS4ZZ (ICD-10-PCS; 2016-08-13)
PROC: 0FB24ZZ Excision of Left Lobe Liver, Percutaneous Endoscopic Approach (ICD-10-PCS; 2016-08-13)
PROC: 0BQR4ZZ (ICD-10-PCS; 2016-08-13)
PROC: 0D154ZA Bypass Esophagus to Jejunum, Percutaneous Endoscopic Approach (ICD-10-PCS; 2016-08-13)
PROC: 0DQ44ZZ Repair Esophagogastric Junction, Percutaneous Endoscopic Approach (ICD-10-PCS; 2016-08-13)
PROC: 0DB54ZX Excision of Esophagus, Percutaneous Endoscopic Approach, Diagnostic (ICD-10-PCS; 2016-08-13)
PROC: 0WBC4ZX Excision of Mediastinum, Percutaneous Endoscopic Approach, Diagnostic (ICD-10-PCS; 2016-08-13)
DX: K21.9 Gastro-esophageal reflux disease without esophagitis (principal); K44.9 Diaphragmatic hernia without obstruction or gangrene; D17.9 Benign lipomatous neoplasm, unspecified; J44.9 Chronic obstructive pulmonary disease, unspecified; E66.9 Obesity, unspecified; J45.909 Unspecified asthma, uncomplicated; I10 Essential (primary) hypertension; M81.0 Age-related osteoporosis without current pathological fracture; E78.5 Hyperlipidemia, unspecified; Z96.641 Presence of right artificial hip joint; Z90.710 Acquired absence of both cervix and uterus; Z79.82 Long term (current) use of aspirin; Z87.891 Personal history of nicotine dependence; Z88.2 Allergy status to sulfonamides; Z88.8 Allergy status to other drugs, medicaments and biological substances
CPT/HCPCS: 36415; 74240; 74240-26; 80048; 80053; 83735; 83880; 84100; 85027; 86850; 86900; 86901; 88304; 88305; 88307; 88342; 93005; 94640-76; 94762; A9270-GY; C9113; J0171; J0694; J1100; J1170; J1644; J2001; J2250; J2370; J2405; J2704; J2795; J3010; J3411; J3420; J3475; J3490; J7030; J7040; J7042; J7050; J7620; Q9967

== ENCOUNTER 2016-10-08 07:26 | Day surgery (SDC) | payer MEDICARE, BC ==
[~2016-10-08 07:26] MED LIST changes: -Bupivacaine 0.5%/EPINEPHrine 1:200,000 50 ML MDV ONE; +Midazolam 1 MG/ML 2 ML SDV ONE; +Propofol 200 MG/20 ML SDV ONE; -Ropivacaine 40 ML, Dexamethasone 8 MG, EPINEPHrine 0.4 MG, Sodium Chloride 0.9% 37.6 ML NERVRT SCH; -cefOXitin 2 GM in Sodium Chloride 0.9% 50 ML IV ONE; +fentaNYL 100 MCG/2 ML SDV ONE
[2016-10-08] MEDS ORDERED: Lactated Ringers 1,000 ML IV SCH (08:00)
[2016-10-08] MEDS ORDERED: Glycopyrrolate 0.2 MG/ML 2 ML SDV IVPUSH ONE (08:45)
[2016-10-08] MEDS ORDERED: MVI, Adult with Vitamin K 10 ML, Thiamine 200 MG, Chromium/Copper/Mang/Selen/Zn 1 ML in... IV ONE ×4 (09:00)
[2016-10-08] MEDS ORDERED: Cyanocobalamin (Vitamin B12) 1,000 MCG/ML SDV IM ONE (09:00)
[2016-10-08] MEDS ORDERED: MVI, Adult with Vitamin K 10 ML, Thiamine 200 MG, Chromium/Copper/Mang/Selen/Zn 1 ML in... IV SCH ×4 (10:00)
[2016-10-08 10:54] VITALS: BP 137/88
--- NOTE | 2016-10-14 08:40 | OR ---
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 POSTOPERATIVE DIAGNOSIS: Moderate amount of stricture of esophagojejunostomy. OPERATIVE PROCEDURE: Upper GI endoscopy with dilation of esophagojejunostomy (73513). ANESTHESIA: IV sedation. INDICATION FOR PROCEDURE: A 75-year-old female presenting with some symptoms of stricturing at the areas of esophagojejunostomy. The patient is status post esophagogastrectomy for recurrent reflux disease on 08/13/2016. The plan is to do an upper GI endoscopy with biopsies and/or dilation as indicated. Potential risks including bleeding and perforation were discussed, and the patient wishes to proceed. DETAILS OF THE PROCEDURE: The patient was taken to the operating room, placed in a left lateral decubitus position. IV sedation was administered, after which through the upper GI, an endoscope was passed orally through the length of the esophagus and into the area of the esophagojejunostomy. This area of shunt was associated with moderate stricture, the scope could not quite be able to pass through the anastomosis. Using fluoroscopic surveillance, a Bard gastrointestinal catheter was centered across the anastomosis and inflated to 36-[place] size. This was held in position for 1 minute, after which the balloon catheter was deflated and withdrawn. The scope could easily then be passed through the anastomosis. No complications were evident and the patient tolerated the procedure well. Lj Zarate MD /[id number]
== END 2016-10-08 11:13 | disposition home or self-care (01) ==
LOC: JP.SDS 07:26
PROVIDERS: ATTEND Surgery
DX: K94.33 Esophagostomy malfunction (principal); R13.10 Dysphagia, unspecified; K21.9 Gastro-esophageal reflux disease without esophagitis; I10 Essential (primary) hypertension; M19.90 Unspecified osteoarthritis, unspecified site; J45.909 Unspecified asthma, uncomplicated
CPT/HCPCS: 43249; J2250; J2704; J3010; J3411; J3420; J7120; J3490

== ENCOUNTER 2017-01-08 07:31 | Day surgery (SDC) | payer MEDICARE, BC ==
[2017-01-08] MEDS ORDERED: Lactated Ringers 1,000 ML IV ONE (08:00)
[2017-01-08] MEDS ORDERED: Cyanocobalamin (Vitamin B12) 1,000 MCG/ML SDV IM ONE (08:00)
[2017-01-08] MEDS ORDERED: fentaNYL 100 MCG/2 ML SDV ONE (08:11)
[2017-01-08] MEDS ORDERED: Propofol 200 MG/20 ML SDV ONE (08:11)
[2017-01-08] MEDS ORDERED: Glycopyrrolate 0.2 MG/ML 2 ML SDV IVPUSH ONE (08:30)
[2017-01-08] MEDS ORDERED: MVI, Adult with Vitamin K 10 ML, Thiamine 200 MG, Chromium/Copper/Mang/Selen/Zn 1 ML in... IV ONE ×4 (09:00)
[2017-01-08 09:36] VITALS: BP 170/80
--- NOTE | 2017-01-14 11:06 | OR ---
DATE OF PROCEDURE: 01/08/2017 PREOPERATIVE DIAGNOSIS: Dysphagia, status post partial gastrectomy with Amor-en-Y gastrojejunostomy. POSTOPERATIVE DIAGNOSES: 1. Dysphagia, status post partial gastrectomy with Amor-en-Y gastrojejunostomy. 2. Focal reddened mucosa at gastrojejunostomy. OPERATIVE PROCEDURES: Upper GI endoscopy with: 1. Biopsies of reddened area of mucosa at gastrojejunostomy (97840). 2. Dilation of gastrojejunostomy (61610). ANESTHESIA: IV sedation. INDICATIONS FOR PROCEDURE: This is a 76-year-old female, status post Amor-en-Y gastrojejunostomy with partial gastrectomy for recurrent gastroesophageal reflux disease. She presents with some dysphagia to assess possible problems with either ulceration or stricturing at the gastrojejunostomy with her operative procedure having been done on 08/13/2016. The plan is to proceed with an upper GI endoscopy with biopsies and/or dilation as indicated. Potential risks, including bleeding and perforation were discussed, and the patient wishes to proceed. DETAILS OF PROCEDURE: The patient was taken to the operating room and placed in a left lateral decubitus position. IV sedation was administered after which the upper GI endoscope was passed orally through the length of the esophagus and into the area of the gastrojejunostomy and roughly 20 cm into the Amor limb. Findings included normal esophagus and EG junction. At the gastrojejunostomy, there was a focal reddened and edematous area of mucosa. Biopsies of this were obtained. The gastrojejunostomy was not overly tight with the scope easily being passed through it. Following the initial biopsies, the Bard gastrointestinal balloon catheter was centered across the gastrojejunostomy and inflated to 54-Sen[place]alese size. This was held in position for 1 minute, after which the balloon catheter was deflated and withdrawn. There was very little if any additional diameter being achieved, which did confirm that there was not a significant stricture at this location. The scope was then withdrawn and the above findings reconfirmed. The patient was taken to the recovery room in a satisfactory condition. The patient will be counseled regarding eating behavior in terms of perhaps taking a little bit more in the way of liquids and chewing the food better when eating. I will have her see Dixie Warner in 1 month. I do not think there is a good indication for starting a PPI at this point, based on the findings. Lj Zarate MD /[id number]
== END 2017-01-08 12:15 | disposition home or self-care (01) ==
LOC: JP.SDS 07:31
PROVIDERS: ATTEND Surgery
DX: K94.22 Gastrostomy infection (principal); Z88.2 Allergy status to sulfonamides; Z88.8 Allergy status to other drugs, medicaments and biological substances; Z90.3 Acquired absence of stomach [part of]; I10 Essential (primary) hypertension; K21.9 Gastro-esophageal reflux disease without esophagitis
CPT/HCPCS: 43239; 43245; 88305; 88342; J2704; J3010; J3411; J3420; J7120; J3490

== ENCOUNTER 2017-07-02 08:27 | Day surgery (SDC) | payer MEDICARE, BC ==
[2017-07-02] MEDS ORDERED: Lidocaine 1% with EPINEPHrine 1:100,000 50 ML MDV ONE (08:50)
[2017-07-02] MEDS ORDERED: Bupivacaine 0.5% 50 ML MDV ONE (08:50)
[2017-07-02] MEDS ORDERED: Sodium Bicarbonate 8.4% 50 MEQ/50 ML SDV IVPUSH ONE (09:03)
[2017-07-02] MEDS ORDERED: Lidocaine 1% 20 ML MDV INJECT ONE (09:15)
[2017-07-02] MEDS ORDERED: ceFAZolin 1 GM in Premix Bag 1 BAG IV ONE (09:45)
[2017-07-02] MEDS ORDERED: Dextrose 5%-Lactated Ringers 1,000 ML IV SCH (09:45)
--- NOTE | 2017-07-02 10:46 | MY ---
EXAM: (Guide Ndl Wire Loc LT) HISTORY: LEFT BREAST CALCIFICATION R92.8 COMPARISON: Prior mammograms. TECHNIQUE: After informed consent was obtained, preprocedure left breast mammograms were acquired. Ut ilizing mammographic guidance, and 1% lidocaine buffered with bicarbonate, a localization needle was placed adjacent to the microcalcifications in the left breast. A wire was then placed through the loc alization needle and the needle removed. The microcalcifications lie directly adjacent to the thick p ortion of the wire. IMPRESSION: Mammographic guided stereotactic left breast microcalcifications localization.
[2017-07-02] MEDS ORDERED: Propofol 200 MG/20 ML SDV ONE (11:22)
--- NOTE | 2017-07-02 11:41 | MY ---
EXAM: (Surgical Specimen Breast) HISTORY: LEFT BREAST BX SPECIMEN radiographs: Labeled Specimen #1: Contains the localization wire and no breast calcifications. Labeled Specimen #2: Contains the indeterminate microcalcifications. Labeled Specimen #3: Contains no calcifications. IMPRESSION: Adequate specimen radiographs.
[2017-07-02 12:36] VITALS: BP 149/79
--- NOTE | 2017-07-09 10:37 | OR ---
DATE OF PROCEDURE: 07/02/2017 PREOPERATIVE DIAGNOSES: 1. Focal calcifications, left breast. 2. Left lateral breast mass. POSTOPERATIVE DIAGNOSES: 1. Focal calcifications, left breast. 2. Left lateral breast mass.224 OPERATIVE PROCEDURES: 1. Excisional biopsy of left breast with preoperative needle localization, (). 2. Separate nonlocalized excisional biopsy of left lateral breast, (). ANESTHESIA: Local plus IV sedation. 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 As part of medical followup, she underwent mammography, which revealed an area of suspicious calcifications in the upper aspect of the left breast. The patient also has a clinically palpable lesion in the lateral aspect of the left breast. The plan is to proceed with excisional biopsy of the latter and excisional biopsy of the area of calcifications in the left upper breast with preoperative needle localization. Potential risks including bleeding, infection, cosmetic deformity, and the possible need for additional treatment if malignancy are gone over, and the patient wishes to proceed. DETAILS OF PROCEDURE: The patient was taken to the operating room and placed in a supine position. After successful localization of the area of concern in the left breast, the left breast and surrounding areas were then prepped and draped. Both areas were then anesthetized with some 1% lidocaine mixed with Marcaine. Using fluoroscopic surveillance, initially, a transverse incision was made and carried down through the skin and subcutaneous tissue. Initially, tissue around the stiffener and end of the needle was then excised. This contained some scattered small white nodular lesions within an otherwise fairly atrophic breast tissue. Initial did not show significant calcifications. Two additional areas, one superior and one somewhat anterior to the original point of incision were then separately sent. The more superior one did show the calcifications of concern and it was sent separately for specific pathologic review along with the other areas of the tissue. Hemostasis was then obtained at that area with electrocautery, and the incision was closed with 3-0 and 4-0 Vicryl stitch deep and 4-0 Vicryl subcuticular stitch. The area in the left lateral breast was then once again identified and a transversely- oriented incision was made and carried down through the skin and subcutaneous tissue. What appeared to be perhaps a clotted hemangioma was then encountered, and this was excised and sent for separate specimen. This was then closed with 3-0 and 4-0 Vicryl stitch deep and 4-0 Vicryl subcuticular stitch as well. At that point, dressing was applied. The patient was taken to the recovery room in a satisfactory condition. Lj Zarate MD /[id number]
== END 2017-07-02 12:50 | disposition home or self-care (01) ==
LOC: JP.SDS 08:27
PROVIDERS: ATTEND Surgery
DX: D24.2 Benign neoplasm of left breast (principal); N60.92 Unspecified benign mammary dysplasia of left breast; D18.09 Hemangioma of other sites; I10 Essential (primary) hypertension; J45.909 Unspecified asthma, uncomplicated; C90.30 Solitary plasmacytoma not having achieved remission
CPT/HCPCS: 19120; 19125; 19281; 76000; 76098; 88305; J0690; J2250; J2704; J3010; J7042; J3490

== ENCOUNTER 2017-07-05 06:22 | Day surgery (SDC) | payer MEDICARE, BC ==
[2017-07-05] MEDS ORDERED: Lactated Ringers 1,000 ML IV SCH (07:00)
[2017-07-05] MEDS ORDERED: Propofol 200 MG/20 ML SDV ONE (07:26)
[2017-07-05] MEDS ORDERED: fentaNYL 100 MCG/2 ML SDV ONE (07:26)
[2017-07-05 09:13] VITALS: BP 140/78
--- NOTE | 2017-07-05 09:37 | OR ---
DATE OF PROCEDURE: 07/05/2017 PREOPERATIVE DIAGNOSES: 1. Colon cancer screening. 2. History of hyperplastic polyp. POSTOPERATIVE DIAGNOSES: 1. Colon cancer screening. 2. History of hyperplastic polyp. 3. Small rectal polyp. PROCEDURE: Colonoscopy to the cecum with biopsy resection of small rectal polyp. SURGEON: Delgado Cantrell MD. ANESTHESIA: IV anesthesia with monitored anesthesia care. INDICATION: This 76-year-old white female is here for a colonoscopy. She says her last colonoscopic exam was done 11 years ago. At that time, a polyp was removed, which was a hyperplastic polyp. I counseled her for a colonoscopy with possible biopsy and/ or polypectomy including risks and alternatives, and she gave her informed consent to proceed. DESCRIPTION OF PROCEDURE: The patient was placed in the left lateral decubitus position. IV anesthesia was administered by the Anesthesia Service. Time-out was held. A rectal exam was performed, which was unremarkable. The flexible video Olympus colonoscope was introduced through her anus, up her rectum, and out her colon all the way to the cecum. Once the cecum was reached, the scope was slowly withdrawn, examining the mucosa throughout. No mucosal abnormalities were noted until we reached the rectum. Here, we saw a small polyp, which was removed with several bites of the biopsy forceps. The scope was retroflexed with the distal rectum appearing unremarkable. The scope was straightened and removed. She tolerated the procedure well. Delgado Cantrell MD /[id number]
== END 2017-07-05 09:22 | disposition home or self-care (01) ==
LOC: JP.SDS 06:22
PROVIDERS: ATTEND Surgery
DX: Z12.11 Encounter for screening for malignant neoplasm of colon (principal); K62.1 Rectal polyp; I10 Essential (primary) hypertension; J45.909 Unspecified asthma, uncomplicated; Z86.010 Personal history of colon polyps
CPT/HCPCS: 45380; J2704; J3010; J7120; 88305

== ENCOUNTER 2018-04-24 05:20 | Inpatient (IN) | payer MEDICARE, BC ==
[2018-04-24] MEDS ORDERED: Lactated Ringers 1,000 ML IV ONE (07:45)
[2018-04-24] MEDS ORDERED: Propofol 200 MG/20 ML SDV ONE (07:52)
[2018-04-24] MEDS ORDERED: fentaNYL 100 MCG/2 ML SDV ONE (07:52)
[2018-04-24] MEDS ORDERED: Glycopyrrolate 0.2 MG/ML 2 ML SDV IV ONE (08:30)
[2018-04-24] MEDS ORDERED: Cyanocobalamin (Vitamin B12) 1,000 MCG/ML SDV IM ONE (08:30)
[2018-04-24] MEDS ORDERED: MVI, Adult with Vitamin K 10 ML, Chromium/Copper/Mang/Selen/Zn 1 ML, Thiamine 200 MG in... IV ONE ×8 (08:45→10:00)
[2018-04-24] MEDS ORDERED: HYDROmorphone/Normal Saline 15 MG/30 ML PCA IV PRN (11:44)
[2018-04-24] MEDS ORDERED: Naloxone 0.4 MG/ML SDV IV PRN (11:44)
[2018-04-24] MEDS ORDERED: Albuterol/Ipratropium 3.0-0.5 MG/3 ML Neb Soln INH PRN (11:58)
[2018-04-24] MEDS ORDERED: HYDROmorphone 0.5 MG/0.5 ML Syringe IVPUSH ONE (12:00)
[2018-04-24] MEDS: Pantoprazole 40 MG Vial IV SCH (15:34)
[2018-04-24] MEDS: Ondansetron 4 MG/2 ML SDV IVPUSH PRN (18:15)
[2018-04-24] MEDS: Mometasone Furoate HFA 200 mcg/Puff 13 GM Inhaler INH SCH (20:39)
[2018-04-24] MEDS: Simvastatin 20 MG Tab PO SCH (20:40)
[2018-04-24] MEDS: Dextrose 5%-Lactated Ringers 1,000 ML IV SCH (21:04)
[2018-04-25] MEDS: Pantoprazole 40 MG Vial IV SCH (04:11)
[2018-04-25] MEDS ORDERED: Meropenem 500 MG SDV ONE (06:54)
[2018-04-25] MEDS ORDERED: fentaNYL 250 MCG/5 ML SDV ONE (07:12)
[2018-04-25] MEDS ORDERED: Rocuronium 50 MG/5 ML Vial ONE (07:13)
[2018-04-25] MEDS ORDERED: Glycopyrrolate 0.2 MG/ML 5 ML MDV ONE (07:13)
[2018-04-25] MEDS ORDERED: Neostigmine Methylsulfate 1 MG/ML 5 ML Syringe ONE (07:13)
[2018-04-25] MEDS ORDERED: Propofol 200 MG/20 ML SDV ONE (07:13)
[2018-04-25] MEDS ORDERED: Dexamethasone 4 MG/ML SDV ONE (07:13)
[2018-04-25] MEDS ORDERED: Ondansetron 4 MG/2 ML SDV ONE (07:13)
[2018-04-25] MEDS ORDERED: Succinylcholine 200 MG/10 ML MDV ONE (07:13)
[2018-04-25] MEDS ORDERED: Albuterol/Ipratropium 3.0-0.5 MG/3 ML Neb Soln INH ONE (08:00)
[2018-04-25] MEDS ORDERED: Ropivacaine 33 ML, Dexamethasone 8 MG, EPINEPHrine 0.4 MG, Sodium Chloride 0.9% 44.6 ML NERVRT SCH ×4 (08:00)
[2018-04-25] MEDS ORDERED: Ketamine 500 MG/5 ML MDV IV SCH (08:00)
[2018-04-25] MEDS ORDERED: cefOXitin 2 GM in Sodium Chloride 0.9% 50 ML IV ONE (08:00)
[2018-04-25] MEDS: Mometasone Furoate HFA 200 mcg/Puff 13 GM Inhaler INH SCH ×2 (08:08→21:07)
[2018-04-25] MEDS: Dextrose 5%-Lactated Ringers 1,000 ML IV SCH ×3 (08:24→12:20)
[2018-04-25] MEDS ORDERED: Bupivacaine 0.5%/EPINEPHrine 1:200,000 50 ML MDV ONE (09:33)
[2018-04-25] MEDS ORDERED: Lactated Ringers 1,000 ML ONE (10:01)
[2018-04-25] MEDS ORDERED: fentaNYL 100 MCG/2 ML SDV ONE (10:07)
[2018-04-25] MEDS: Ondansetron 4 MG/2 ML SDV IVPUSH PRN (11:58)
[2018-04-25] MEDS ORDERED: Labetalol 20 MG/4 ML Syringe IVPUSH PRN (12:06)
[2018-04-25] MEDS ORDERED: diphenhydrAMINE 50 MG/ML SDV IVPUSH PRN (12:06)
[2018-04-25] MEDS ORDERED: Albuterol/Ipratropium 3.0-0.5 MG/3 ML Neb Soln INH PRN (12:06)
[2018-04-25] MEDS ORDERED: Metoclopramide 10 MG/2 ML SDV IVPUSH PRN (12:06)
[2018-04-25] MEDS ORDERED: hydrOXYzine HCl 100 MG/2 ML SDV IM PRN (12:06)
[2018-04-25] MEDS: Scopolamine 1.5 MG Transdermal Patch TOP SCH ×2 (12:24→14:38)
[2018-04-25] MEDS: Hydrochlorothiazide 12.5 MG Cap PO SCH (12:25)
[2018-04-25] MEDS: Losartan 50 MG Tab PO SCH (12:25)
[2018-04-25] MEDS: amLODIPine 5 MG Tab PO SCH (12:25)
[2018-04-25] MEDS: Acetaminophen Soln 650 MG/20.3 ML UD Cup PO SCH ×2 (14:38→19:35)
[2018-04-25] MEDS: Albuterol/Ipratropium 3.0-0.5 MG/3 ML Neb Soln INH SCH ×2 (14:40→21:07)
[2018-04-25] MEDS: cefOXitin 2 GM in Sodium Chloride 0.9% 50 ML IV SCH ×2 (15:25→21:06)
--- NOTE | 2018-04-25 15:36 | OR ---
DATE OF PROCEDURE: 04/24/2018 PREOPERATIVE DIAGNOSIS: History of bile reflux. POSTOPERATIVE DIAGNOSIS: History of bile reflux with focal small ulcer at esophagojejunostomy. PROCEDURE: Upper gastrointestinal endoscopy with biopsies of the esophagojejunostomy for CLOtest. ANESTHESIA: IV sedation. INDICATION FOR PROCEDURE: This is a 77-year-old status post an esophagogastrectomy with Amor-en-Y reconstruction for recurrent gastroesophageal reflux disease following previous Ba fundoplication. This was done in August of 2016. Recently, she has had problems with progressive worsening bile reflux and to the extent that she had become hoarse. An ENT evaluation revealed no evident recurrence of her laryngeal pathology, apart from this being irritated. The plan is to proceed with upper GI endoscopy with biopsies and dilation as indicated. Potential risks including bleeding and perforation were discussed, and the patient wishes to proceed. DESCRIPTION OF PROCEDURE: The patient was taken to the operating room and placed in a left lateral decubitus position. IV sedation was administered, after which the upper GI endoscope was passed orally through the length of the esophagus into the area of the esophagojejunostomy, and from there, roughly 20 cm into the Amor limb. Findings included a somewhat irritated-appearing hypopharynx and larynx. The upper esophageal sphincter and esophageal body were unremarkable. At that point, the area of the esophagojejunostomy was identified. There was a very small rim of gastric mucosa present. This had a tiny area of ulceration on it, which was biopsied with CLOtest for H. pylori. Of note, there was not any obvious bile present. Within any point of exam, we were not able to identify if any fistula into the bypassed portion of the stomach. At that point, biopsies from the area of ulceration had been obtained. Minimal bleeding was noted, and the procedure was then concluded. Following the procedure, we did once again review the situation with the daughter and the patient, and they are both entirely sure she is bringing up yellow bile type material at times. I suspect, with n.p.o. status, she did not have any significant stimulation for secretion of the bile, and the partial obstruction may be allowing the lower flow to get through more distally. The patient's symptoms at this point are quite severe, and given this, the plan will be to proceed with a limited laparotomy tomorrow and look for any adhesions around the jejunojejunostomy or elsewhere that might be contributing to bile reflux. She was noted to have a Amor limb somewhere around 100 cm measured, which might be somewhat shorter than that, depending on the degree of contractility during the time of that measurement during the operation in August. We would then re-implant the biliopancreatic limb more distally, as well lyse any adhesions that might be present in order to try to minimize chances of the bile reflux. The patient will be admitted for hydration, some vitamin administration, and the laparotomy tomorrow for revision of the jejunojejunostomy. Lj Zarate MD /[id number]
[2018-04-25] MEDS ORDERED: MVI, Adult with Vitamin K 10 ML, Thiamine 200 MG, Chromium/Copper/Mang/Selen/Zn 1 ML in... IV SCH ×4 (16:00)
[2018-04-25] MEDS: Heparin Sodium 5,000 Units/ML Vial SUBCUT SCH (19:35)
[2018-04-25] MEDS: Simvastatin 20 MG Tab PO SCH (21:07)
[2018-04-26] MEDS: Dextrose 5%-Lactated Ringers 1,000 ML IV SCH (01:51)
[2018-04-26] MEDS: Acetaminophen Soln 650 MG/20.3 ML UD Cup PO SCH ×4 (01:51→20:39)
[2018-04-26] MEDS: cefOXitin 2 GM in Sodium Chloride 0.9% 50 ML IV SCH (02:03)
[2018-04-26] MEDS ORDERED: Iohexol 647 MG/ML 50 ML SDV IVPUSH PRN (04:40)
[2018-04-26] MEDS: Pantoprazole 40 MG Vial IV SCH (05:19)
[2018-04-26] MEDS: Albuterol/Ipratropium 3.0-0.5 MG/3 ML Neb Soln INH SCH ×4 (07:20→20:44)
[2018-04-26] MEDS: Mometasone Furoate HFA 200 mcg/Puff 13 GM Inhaler INH SCH ×2 (07:25→20:39)
[2018-04-26] MEDS ORDERED: Dextrose 5%-Lactated Ringers 1,000 ML IV SCH (08:30)
[2018-04-26] MEDS: Losartan 50 MG Tab PO SCH (08:33)
[2018-04-26] MEDS: Heparin Sodium 5,000 Units/ML Vial SUBCUT SCH ×2 (08:34→20:39)
[2018-04-26] MEDS: Hydrochlorothiazide 12.5 MG Cap PO SCH (08:34)
[2018-04-26] MEDS: amLODIPine 5 MG Tab PO SCH (08:38)
[2018-04-26] MEDS: SCOPOLAMINE PATCH CHECK TOP SCH (08:45)
[2018-04-26] MEDS ORDERED: MVI, Adult with Vitamin K 10 ML, Thiamine 200 MG, Chromium/Copper/Mang/Selen/Zn 1 ML in... IV SCH ×4 (16:00)
[2018-04-26] MEDS: Simvastatin 20 MG Tab PO SCH (20:40)
[2018-04-27] MEDS: Acetaminophen Soln 650 MG/20.3 ML UD Cup PO SCH (01:34)
[2018-04-27] MEDS: Pantoprazole 40 MG Vial IV SCH (05:46)
[2018-04-27] MEDS: Albuterol/Ipratropium 3.0-0.5 MG/3 ML Neb Soln INH SCH ×4 (07:29→20:36)
[2018-04-27] MEDS: Mometasone Furoate HFA 200 mcg/Puff 13 GM Inhaler INH SCH ×2 (07:30→20:35)
[2018-04-27] MEDS ORDERED: Dextrose 5%-Lactated Ringers 1,000 ML IV SCH (08:00)
[2018-04-27] MEDS: Losartan 50 MG Tab PO SCH (08:35)
[2018-04-27] MEDS: SCOPOLAMINE PATCH CHECK TOP SCH (08:36)
[2018-04-27] MEDS: amLODIPine 5 MG Tab PO SCH (08:36)
[2018-04-27] MEDS: Hydrochlorothiazide 12.5 MG Cap PO SCH (08:36)
[2018-04-27] MEDS: Heparin Sodium 5,000 Units/ML Vial SUBCUT SCH ×2 (08:37→19:40)
[2018-04-27] MEDS ORDERED: Cyanocobalamin (Vitamin B12) 1,000 MCG/ML SDV IM ONE (09:00)
[2018-04-27] MEDS: Bisacodyl 5 MG Tab PO SCH ×2 (09:24→20:35)
[2018-04-27] MEDS: Docusate Sodium 100 MG Cap PO SCH ×2 (09:24→20:35)
[2018-04-27] MEDS: Acetaminophen/HYDROcodone 325-5 MG Tab PO PRN ×2 (13:20→18:22)
[2018-04-27] MEDS ORDERED: MVI, Adult with Vitamin K 10 ML, Thiamine 200 MG, Chromium/Copper/Mang/Selen/Zn 1 ML in... IV SCH ×4 (16:00)
[2018-04-27] MEDS: Simvastatin 20 MG Tab PO SCH (20:36)
[2018-04-28] MEDS: Acetaminophen/HYDROcodone 325-5 MG Tab PO PRN ×2 (01:18→06:49)
[2018-04-28] MEDS: Albuterol/Ipratropium 3.0-0.5 MG/3 ML Neb Soln INH SCH ×2 (07:17→11:17)
[2018-04-28] MEDS: Mometasone Furoate HFA 200 mcg/Puff 13 GM Inhaler INH SCH (07:19)
[2018-04-28] MEDS ORDERED: Pantoprazole 40 MG Tab.CR PO SCH (07:30)
[2018-04-28] MEDS: Ondansetron 4 MG/2 ML SDV IVPUSH PRN (08:32)
[2018-04-28] MEDS: Hydrochlorothiazide 12.5 MG Cap PO SCH (08:34)
[2018-04-28] MEDS: Bisacodyl 5 MG Tab PO SCH (08:37)
[2018-04-28] MEDS: Docusate Sodium 100 MG Cap PO SCH (08:37)
[2018-04-28] MEDS: amLODIPine 5 MG Tab PO SCH (08:38)
[2018-04-28] MEDS: Losartan 50 MG Tab PO SCH (08:40)
[2018-04-28] MEDS: Heparin Sodium 5,000 Units/ML Vial SUBCUT SCH (08:41)
[2018-04-28 08:42] VITALS: BP 163/88
--- NOTE | 2018-04-28 10:43 | CRLCR ---
INDICATION: Evaluate Amor-en-Y gastric bypass. COMPARISON: None available. FINDINGS: Two films of the abdomen are obtained after swallowing radiopaque oral contrast. The oral contrast passes easily through a small gastric pouch and into the proximal small bowel with no sign of extravasation or obstruction. There is no sign of distention of the small bowel or colon to suggest obstruction or ileus. There is no sign of free air or distinct mass. There is a line of surgical skin chip at the midline of the abdomen extending into the superior pelvis. The osseous structures are normal in appearance for the patient`s age. There is mild patchy density in the left lung base, consistent with atelectasis. The right lung base is clear. IMPRESSION: Contrast passes easily from the small gastric pouch into the proximal small bowel with no sign of extravasation. Dictated by Joe Elena MD @ Apr 28 2018 10:37AM Signed by Dr. Joe Elena @ Apr 28 2018 10:41AM
--- NOTE | 2018-04-28 11:27 | PCM.DCSUM1 ---
<Priti Prado - Last Filed: 04/28/18 11:15> Discharge Summary - Hospital Course Free Text/Narrative:: Pt was having worsening of bile relux and dysphonia. 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 EGD was done on 04/24/18. Exploratory laparotomy with lysis of adhesions and revision of jejonjenostomy on 04/25/17. Pt has been doing well since surgery. Is tolerating step 3 diet. Is passing gas but no BM yet. Will send her home with dulcolax and colace She will be set up with home care. Diagnosis: Stroke: No Modified [place] Scale: Slight Disable;Unable to Carry Out Prev Act.Able to Look After Affairs Modified [place] Scale Score: 2 - Discharge Data Discharge Date: 04/28/18 Discharge Disposition: Home, W Home Health Agency 06 Condition: Stable - Discharge Diagnosis/Problem(s) (1) Status post exploratory laparotomy SNOMED Code(s): 431387161, 05432018, 223630410 ICD Code: Z98.890 - OTHER SPECIFIED POSTPROCEDURAL STATES Status: Acute Problem Details: Lysis of adhesions and revision of Jejonjenostomy (2) Abnormal findings on esophagogastroduodenoscopy (EGD) SNOMED Code(s): 426140049, 337886146 ICD Code: R19.8 - OTH SYMPTOMS AND SIGNS INVOLVING THE DGSTV SYS AND ABDOMEN Status: Acute (3) Hx of laparoscopic partial gastrectomy SNOMED Code(s): 870985452, 908351249 ICD Code: Z90.3 - ACQUIRED ABSENCE OF STOMACH [PART OF] Status: Chronic (4) PUD (peptic ulcer disease) SNOMED Code(s): 59215181 ICD Code: K27.9 - PEPTIC ULC, SITE UNSP, UNSP AC OR CHR, W/O HEMOR OR PERF Status: Chronic (5) History of Amor-en-Y gastric bypass SNOMED Code(s): 865158919, 580915202 ICD Code: Z98.84 - BARIATRIC SURGERY STATUS Status: Chronic (6) Status post repair of paraesophageal diaphragmatic hernia SNOMED Code(s): 89823669425266, 77416349234743 ICD Code: Z98.890 - OTHER SPECIFIED POSTPROCEDURAL STATES; Z87.19 - PERSONAL HISTORY OF OTHER DISEASES OF THE DIGESTIVE SYSTEM Status: Chronic - Patient Summary/Data Operative Procedure(s) Performed: Exploratory laparotomy with lysis of adhesions and revision of jejonjenostomy Consults: Consultations 04/25/18 12:01 Consult to Bariatric Services [CONS] Routine Comment: Consult to Economic Adviser [CONS] Routine Comment: Physician Instructions: Quantity: Respiratory Care Assess and Treatment [CONS] Routine Comment: Physician Instructions: Post-Op Pneumonia Prevention 04/26/18 07:08 PT Evaluation and Treatment [CONS] Routine Please Evaluate and Treat. PT Reason for Consult: Strengthening Pending Discharge: Yes Discharge Disposition: Home w Home Health Special Instructions: POSSIBLE SNF This query below is only for informational purposes and is not editable. Admission Diagnosis/Problem: Ulcer of esophagus - Patient Instructions Diet: Drink 8-10+ Glasses/Day Diet, Other: Step 3 Gastric Bypass Diet until next appointment Activity: No Lifting Over 10 Pounds Activity, Other: Walk at least 6 times daily inside your home. Driving: Do Not Drive Showering/Bathing: May Shower Wound/Incision Care: Keep Operative Site/Wound Site Clean and Dry Notify Provider of: Fever, Increased Pain, Swelling and Redness, Drainage, Nausea and/or Vomiting Other/Special Instructions: Use incentive inspirometer 10 times every hour while awake for 1 week. - Discharge Plan Prescriptions/Med Rec: Acetaminophen/HYDROcodone [[place] 325-5 MG] 1 tab PO Q4H PRN #40 tablet PRN Reason: PAIN Bisacodyl [Dulcolax] 10 mg PO BID #30 tablet Docusate Sodium [Colace] 100 mg PO BID #100 cap Home Medications: Home Meds Albuterol [Proventil HFA] 2 puff INH QID PRN 08/24/13 [History] Losartan/Hydrochlorothiazide [Hyzaar 50-12.5 Tablet] 1 each PO DAILY 08/24/13 [ History] Triamcinolone Acetonide [Kenalog 0.1% Crm] 1 applic TOP TID PRN 08/24/13 [ History] amLODIPine [Norvasc] 5 mg PO DAILY 08/24/13 [History] Mv-Mn/FA/Vit K/Lycop/Lut/Zeaxa [Ocuvite Eye + Multi Tablet] 1 tab PO DAILY 06/25 [History] Simvastatin [Zocor] 40 mg PO DAILY 07/10/16 [History] metroNIDAZOLE [metroNIDAZOLE 0.75% Gel] 1 dose TOP BID 07/10/16 [History] Biotin 5,000 mcg PO DAILY 10/04/16 [History] Calcium Citrate/Vitamin D3 [Calcium Citrate - Vit D Tablet] 1 each PO BID [History] Cholecalciferol (Vitamin D3) [Vitamin D] 5,000 unit PO DAILY 10/04/16 [History] Fluticasone Propionate [Flovent HFA] 1 puff INH BID 10/04/16 [History] Vitamin B Complex [B Complex] 1 each PO DAILY 10/04/16 [History] Sucralfate [Carafate] 1 gm PO QID 06/28/17 [History] Zinc 50 mg PO DAILY 06/28/17 [History] Acetaminophen/HYDROcodone [[place] 325-5 MG] 1 tab PO Q4H PRN #40 tablet 04/28/18 [Rx] Bisacodyl [Dulcolax] 10 mg PO BID #30 tablet 04/28/18 [Rx] Docusate Sodium [Colace] 100 mg PO BID #100 cap 04/28/18 [Rx] Iron,Carbonyl/Ascorbic Acid [Iron 100-Vitamin C Tablet] 1 each PO DAILY #0 04/28 [Rx] Referrals: Dixie Warner PA-C [Physician Emergency Management System Director] - 05/06/18 10:00 am - Discharge Summary/Plan Comment DC Time >30 min.: Yes - General Info Date of Service: 04/28/18 Admission Dx/Problem (Free Text: Bile reflux, dysphonia Functional Status: Reports: Pain Controlled, Tolerating Diet, Ambulating, Urinating, Incentive Spirometry - Review of Systems General: Reports: No Symptoms HEENT: Reports: No Symptoms Pulmonary: Reports: No Symptoms Cardiovascular: Reports: No Symptoms Gastrointestinal: Reports: No Symptoms Genitourinary: Reports: No Symptoms Musculoskeletal: Reports: No Symptoms Skin: Reports: No Symptoms Neurological: Reports: No Symptoms Psychiatric: Reports: No Symptoms - Patient Data Vitals - Most Recent: Last Vital Signs Temp 36.1 C 04/28/18 03:00 Pulse 82 04/28/18 08:49 Resp 16 04/28/18 08:49 BP 163/88 H 04/28/18 08:49 Pulse Ox 94 L 04/28/18 08:49 Weight - Most Recent: 145 lb 0.004 oz I&O - Last 24 hours: Intake & Output 04/27/18 04/28/18 04/28/18 22:59 06:59 14:59 Intake Total 600 736 Output Total 800 2350 Balance -200 -1614 Med Orders - Current: Current Medications Hydrocodone Bitart/Acetaminophen ([place] 325-5 Mg) 1 tab PO Q3H PRN PRN Reason: PAIN Last Admin: 04/28/18 06:49 Dose: 1 tab Albuterol/Ipratropium (Duoneb 3.0-0.5 Mg/3 Ml) 3 ml INH QIDRT [facility] Last Admin: 04/28/18 07:17 Dose: 3 ml Albuterol/Ipratropium (Duoneb 3.0-0.5 Mg/3 Ml) 3 ml INH ASDIRECTED PRN PRN Reason: BREATHING Amlodipine Besylate (Norvasc) 5 mg PO DAILY [facility] Last Admin: 04/28/18 08:38 Dose: 5 mg Bisacodyl (Dulcolax) 10 mg PO BID [facility] Last Admin: 04/28/18 08:37 Dose: 10 mg Diphenhydramine HCl (Benadryl) 50 mg IVPUSH Q4H PRN PRN Reason: ITCHING Docusate Sodium (Colace) 100 mg PO BID [facility] Last Admin: 04/28/18 08:37 Dose: 100 mg Heparin Sodium (Porcine) (Heparin Sodium) 5,000 units SUBCUT Q12H [facility] Last Admin: 04/28/18 08:41 Dose: Not Given Hydrochlorothiazide (Hydrochlorothiazide) 12.5 mg PO DAILY [facility] Last Admin: 04/28/18 08:34 Dose: 12.5 mg Hydroxyzine HCl (Vistaril) 100 mg IM Q4H PRN PRN Reason: pain Labetalol HCl (Normodyne) 5 mg IVPUSH Q5M PRN PRN Reason: SBP over 160 OR DBP over 95 Losartan Potassium (Cozaar) 50 mg PO DAILY [facility] Last Admin: 04/28/18 08:40 Dose: 50 mg Metoclopramide HCl (Reglan) 10 mg IVPUSH Q6H PRN PRN Reason: NAUSEA NOT CONTROL BY ZOFRAN Mometasone Furoate (Asmanex Hfa 200mcg) 0 gm INH BIDRT [facility] Last Admin: 04/28/18 07:19 Dose: 1 puff Ondansetron HCl (Zofran) 4 mg IVPUSH Q4H PRN PRN Reason: Nausea/Vomiting Last Admin: 04/28/18 08:32 Dose: 4 mg Pantoprazole Sodium (Protonix) 40 mg PO ACBREAKFAST [facility] Last Admin: 04/28/18 08:37 Dose: 40 mg Simvastatin (Zocor) 40 mg PO BEDTIME [facility] Last Admin: 04/27/18 20:36 Dose: 40 mg Discontinued Medications Acetaminophen (Tylenol) 650 mg PO Q6H [facility] Last Admin: 04/27/18 01:34 Dose: 650 mg Albuterol/Ipratropium (Duoneb 3.0-0.5 Mg/3 Ml) 3 ml INH ONETIME ONE Stop: 04/25/18 08:01 Last Admin: 04/25/18 08:08 Dose: 3 ml Albuterol/Ipratropium (Duoneb 3.0-0.5 Mg/3 Ml) 3 ml INH Q4H PRN PRN Reason: RESP Bupivacaine HCl/Epinephrine Bitart (Marcaine 0.5%/Epinephrine 1:200,000) Confirm Administered Dose 50 ml .ROUTE .STK-MED ONE Stop: 04/25/18 09:34 Last Admin: 04/25/18 09:46 Dose: 50 ml Ropivacaine 33 ml/Dexamethasone 8 mg/Epinephrine HCl 0.4 mg/ Sodium Chloride 44.6 ml 0 ml NERVRT ASDIRECTED [facility] Last Admin: 04/25/18 09:22 Dose: 80 syringe Cyanocobalamin (Vitamin B12) 1,000 mcg IM ONETIME ONE Stop: 04/24/18 08:31 Last Admin: 04/24/18 09:30 Dose: 1,000 mcg Cyanocobalamin (Vitamin B12) 1,000 mcg IM ONETIME ONE Stop: 04/27/18 09:01 Last Admin: 04/27/18 09:25 Dose: 1,000 mcg Dexamethasone (Dexamethasone) Confirm Administered Dose 4 mg .ROUTE .STK-MED ONE Stop: 04/25/18 07:14 Fentanyl (Sublimaze) Confirm Administered Dose 100 mcg .ROUTE .STK-MED ONE Stop: 04/24/18 07:53 Fentanyl (Sublimaze) Confirm Administered Dose 250 mcg .ROUTE .STK-MED ONE Stop: 04/25/18 07:13 Fentanyl (Sublimaze) Confirm Administered Dose 100 mcg .ROUTE .STK-MED ONE Stop: 04/25/18 10:08 Glycopyrrolate (Glycopyrrolate) 0.4 mg IV ONCALL ONE Stop: 04/24/18 08:31 Last Admin: 04/24/18 08:21 Dose: 0.4 mg Glycopyrrolate (Robinul) Confirm Administered Dose 1 mg .ROUTE .STK-MED ONE Stop: 04/25/18 07:14 Hydromorphone HCl (Dilaudid Siding Stapler 15 Mg In Ns 30 Ml) 0 mg IV ASDIRECTED PRN; Protocol PRN 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 Last Admin: 04/24/18 12:43 Dose: 15 mg Lactated Ringer's (Ringers, Lactated) 1,000 mls @ 999 mls/hr IV ONETIME ONE Stop: 04/24/18 08:45 Last Admin: 04/24/18 08:21 Dose: 999 mls/hr Multivitamins/Minerals 10 ml/Chromium/Copper/Manganese/Seleni/Zn 1 ml/ Thiamine HCl 200 mg/ Lactated Ringer's 1,013 mls @ 500 mls/hr IV ONETIME ONE Stop: 04/24/18 10:46 Last Admin: 04/24/18 11:46 Dose: Not Given Multivitamins/Minerals 10 ml/Chromium/Copper/Manganese/Seleni/Zn 1 ml/ Thiamine HCl 200 mg/ Lactated Ringer's 1,013 mls @ 90 mls/hr IV ONETIME ONE Stop: 04/24/18 21:15 Last Admin: 04/24/18 09:45 Dose: 90 mls/hr Dextrose/Lactated Ringer's (Dextrose 5%-Lactated Ringers) 1,000 mls @ 90 mls/ hr IV ASDIRECTED [facility] Last Infusion: 04/25/18 11:30 Dose: Infused Cefoxitin Sodium 2 gm/ Sodium (Chloride) 50 mls @ 100 mls/hr IV ONETIME ONE Stop: 04/25/18 08:29 Last Admin: 04/25/18 08:45 Dose: 100 mls/hr Linezolid (Zyvox) Confirm Administered Dose 300 mls @ as directed .ROUTE .K- [facility] ONE Stop: 04/25/18 07:05 Lactated Ringer's (Ringers, Lactated) Confirm Administered Dose 1,000 mls @ as directed .ROUTE .K-MED ONE Stop: 04/25/18 10:02 Dextrose/Lactated Ringer's (Dextrose 5%-Lactated Ringers) 1,000 mls @ 150 mls/ hr IV ASDIRECTED [facility] Last Admin: 04/26/18 01:51 Dose: 150 mls/hr Multivitamins/Minerals 10 ml/Thiamine HCl 200 mg/ Chromium/Copper/Manganese/ Seleni/Zn 1 ml/ Dextrose/Lactated Ringer's 1,013 mls @ 150 mls/hr IV DAILY@ 1600 [facility] Last Admin: 04/25/18 18:36 Dose: 150 mls/hr Cefoxitin Sodium 2 gm/ Sodium (Chloride) 50 mls @ 100 mls/hr IV Q6H [facility] Stop: 04/26/18 03:29 Last Admin: 04/26/18 02:03 Dose: 100 mls/hr Dextrose/Lactated Ringer's (Dextrose 5%-Lactated Ringers) 1,000 mls @ 100 mls/ hr IV ASDIRECTED [facility] Last Admin: 04/27/18 02:11 Dose: 100 mls/hr Multivitamins/Minerals 10 ml/Thiamine HCl 200 mg/ Chromium/Copper/Manganese/ Seleni/Zn 1 ml/ Dextrose/Lactated Ringer's 1,013 mls @ 100 mls/hr IV DAILY@ 1600 [facility] Last Admin: 04/26/18 15:32 Dose: 100 mls/hr Dextrose/Lactated Ringer's (Dextrose 5%-Lactated Ringers) 1,000 mls @ 75 mls/ hr IV ASDIRECTED [facility] Multivitamins/Minerals 10 ml/Thiamine HCl 200 mg/ Chromium/Copper/Manganese/ Seleni/Zn 1 ml/ Dextrose/Lactated Ringer's 1,013 mls @ 75 mls/hr IV DAILY@1600 [facility] Iohexol (Omnipaque-300) 50 ml IVPUSH ONETIME PRN PRN Reason: radiology exam Last Admin: 04/26/18 05:19 Dose: 50 ml Ketamine HCl (Ketalar) 29 mg IV ASDIRECTED [facility] Meropenem (Merrem) Confirm Administered Dose 500 mg .ROUTE .STK-MED ONE Stop: 04/25/18 06:55 Last Admin: 04/25/18 09:46 Dose: 500 mg Miscellaneous Information (Remove Patch) 1 ea TRDERM ONETIME ONE Stop: 04/27/18 10:01 Last Admin: 04/27/18 09:33 Dose: 1 ea Naloxone HCl (Narcan) 0.1 mg IV ASDIRECTED PRN PRN Reason: decreased respiratory rate Neostigmine Methylsulfate (Neostigmine) Confirm Administered Dose 5 mg .ROUTE .STK-MED ONE Stop: 04/25/18 07:14 Scopolamine Patch (Check) 1 each TOP DAILY [facility] Stop: 04/27/18 12:07 Last Admin: 04/27/18 08:36 Dose: 1 each Ondansetron HCl (Zofran) Confirm Administered Dose 4 mg .ROUTE .STK-MED ONE Stop: 04/25/18 07:14 Pantoprazole Sodium (Protonix Iv) 40 mg IV Q12H [facility] Last Admin: 04/25/18 04:11 Dose: 40 mg Pantoprazole Sodium (Protonix Iv) 40 mg IV Q24H [facility] Last Admin: 04/27/18 05:46 Dose: 40 mg Propofol (Diprivan 20 Ml) Confirm Administered Dose 200 mg .ROUTE .STK-MED ONE Stop: 04/24/18 07:53 Propofol (Diprivan 20 Ml) Confirm Administered Dose 200 mg .ROUTE .STK-MED ONE Stop: 04/25/18 07:14 Rocuronium [place] (Zemuron) Confirm Administered Dose 50 mg .ROUTE .STK-MED ONE Stop: 04/25/18 07:14 Scopolamine (Transderm-Scop) 1.5 mg TOP Q72H [facility] Stop: 04/27/18 10:00 Last Admin: 04/25/18 14:38 Dose: Not Given Succinylcholine Chloride (Quelicin) Confirm Administered Dose 200 mg .ROUTE .STK -MED ONE Stop: 04/25/18 07:14 - Exam Quality Assessment: Reports: DVT Prophylaxis General: Reports: Alert, Oriented HEENT: Reports: Pupils Equal, Pupils Reactive, EOMI, Mucous Membr. Moist/[place] Neck: Reports: Supple Lungs: Reports: Clear to Auscultation, Normal Respiratory Effort Cardiovascular: Reports: Regular Rate, Regular Rhythm GI/Abdominal Exam: Normal Bowel Sounds, Soft, Non-Tender, No Organomegaly, No Distention, No Abnormal Bruit, No Mass, Pelvis Stable Extremities: Normal Inspection, Normal Range of Motion, Non-Tender, No Pedal Edema, Normal Capillary Refill Skin: Reports: Warm, Dry, Intact Wound/Incisions: Reports: Healing Well, Dressing Dry and Intact Neurological: Reports: No New Focal Deficit Psy/Mental Status: Reports: Alert, Normal Affect, Normal Mood <Dixie Warner - Last Filed: 04/28/18 15:36> Discharge Summary - Patient Summary/Data Consults: Consultations 04/25/18 12:01 Consult to Bariatric Services [CONS] Routine Comment: Consult to Economic Adviser [CONS] Routine Comment: Physician Instructions: Quantity: Respiratory Care Assess and Treatment [CONS] Routine Comment: Physician Instructions: Post-Op Pneumonia Prevention 04/26/18 07:08 PT Evaluation and Treatment [CONS] Routine Please Evaluate and Treat. PT Reason for Consult: Strengthening Pending Discharge: Yes Discharge Disposition: Home w Home Health Special Instructions: POSSIBLE SNF This query below is only for informational purposes and is not editable. Admission Diagnosis/Problem: Ulcer of esophagus - Patient Data Vitals - Most Recent: Last Vital Signs Temp 96.9 F 04/28/18 03:00 Pulse 82 04/28/18 08:49 Resp 16 04/28/18 08:49 BP 163/88 H 04/28/18 08:49 Pulse Ox 94 L 04/28/18 08:49 I&O - Last 24 hours: Intake & Output 04/28/18 04/28/18 04/28/18 06:59 14:59 22:59 Intake Total 736 Output Total 2350 Balance -1614 Med Orders - Current: Current Medications Discontinued Medications Acetaminophen (Tylenol) 650 mg PO Q6H [facility] Last Admin: 04/27/18 01:34 Dose: 650 mg Hydrocodone Bitart/Acetaminophen ([place] 325-5 Mg) 1 tab PO Q3H PRN PRN Reason: PAIN Last Admin: 04/28/18 06:49 Dose: 1 tab Albuterol/Ipratropium (Duoneb 3.0-0.5 Mg/3 Ml) 3 ml INH ONETIME ONE Stop: 04/25/18 08:01 Last Admin: 04/25/18 08:08 Dose: 3 ml Albuterol/Ipratropium (Duoneb 3.0-0.5 Mg/3 Ml) 3 ml INH Q4H PRN PRN Reason: RESP Albuterol/Ipratropium (Duoneb 3.0-0.5 Mg/3 Ml) 3 ml INH QIDRT [facility] Last Admin: 04/28/18 11:17 Dose: Not Given Albuterol/Ipratropium (Duoneb 3.0-0.5 Mg/3 Ml) 3 ml INH ASDIRECTED PRN PRN Reason: BREATHING Amlodipine Besylate (Norvasc) 5 mg PO DAILY [facility] Last Admin: 04/28/18 08:38 Dose: 5 mg Bisacodyl (Dulcolax) 10 mg PO BID [facility] Last Admin: 04/28/18 08:37 Dose: 10 mg Bupivacaine HCl/Epinephrine Bitart (Marcaine 0.5%/Epinephrine 1:200,000) Confirm Administered Dose 50 ml .ROUTE .STK-MED ONE Stop: 04/25/18 09:34 Last Admin: 04/25/18 09:46 Dose: 50 ml Ropivacaine 33 ml/Dexamethasone 8 mg/Epinephrine HCl 0.4 mg/ Sodium Chloride 44.6 ml 0 ml NERVRT ASDIRECTED [facility] Last Admin: 04/25/18 09:22 Dose: 80 syringe Cyanocobalamin (Vitamin B12) 1,000 mcg IM ONETIME ONE Stop: 04/24/18 08:31 Last Admin: 04/24/18 09:30 Dose: 1,000 mcg Cyanocobalamin (Vitamin B12) 1,000 mcg IM ONETIME ONE Stop: 04/27/18 09:01 Last Admin: 04/27/18 09:25 Dose: 1,000 mcg Dexamethasone (Dexamethasone) Confirm Administered Dose 4 mg .ROUTE .STK-MED ONE Stop: 04/25/18 07:14 Diphenhydramine HCl (Benadryl) 50 mg IVPUSH Q4H PRN PRN Reason: ITCHING Docusate Sodium (Colace) 100 mg PO BID [facility] Last Admin: 04/28/18 08:37 Dose: 100 mg Fentanyl (Sublimaze) Confirm Administered Dose 100 mcg .ROUTE .STK-MED ONE Stop: 04/24/18 07:53 Fentanyl (Sublimaze) Confirm Administered Dose 250 mcg .ROUTE .STK-MED ONE Stop: 04/25/18 07:13 Fentanyl (Sublimaze) Confirm Administered Dose 100 mcg .ROUTE .STK-MED ONE Stop: 04/25/18 10:08 Glycopyrrolate (Glycopyrrolate) 0.4 mg IV ONCALL ONE Stop: 04/24/18 08:31 Last Admin: 04/24/18 08:21 Dose: 0.4 mg Glycopyrrolate (Robinul) Confirm Administered Dose 1 mg .ROUTE .STK-MED ONE Stop: 04/25/18 07:14 Heparin Sodium (Porcine) (Heparin Sodium) 5,000 units SUBCUT Q12H [facility] Last Admin: 04/28/18 08:41 Dose: Not Given Hydrochlorothiazide (Hydrochlorothiazide) 12.5 mg PO DAILY [facility] Last Admin: 04/28/18 08:34 Dose: 12.5 mg Hydromorphone HCl (Dilaudid Siding Stapler 15 Mg In Ns 30 Ml) 0 mg IV ASDIRECTED PRN; Protocol PRN 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 Last Admin: 04/24/18 12:43 Dose: 15 mg Hydroxyzine HCl (Vistaril) 100 mg IM Q4H PRN PRN Reason: pain Lactated Ringer's (Ringers, Lactated) 1,000 mls @ 999 mls/hr IV ONETIME ONE Stop: 04/24/18 08:45 Last Admin: 04/24/18 08:21 Dose: 999 mls/hr Multivitamins/Minerals 10 ml/Chromium/Copper/Manganese/Seleni/Zn 1 ml/ Thiamine HCl 200 mg/ Lactated Ringer's 1,013 mls @ 500 mls/hr IV ONETIME ONE Stop: 04/24/18 10:46 Last Admin: 04/24/18 11:46 Dose: Not Given Multivitamins/Minerals 10 ml/Chromium/Copper/Manganese/Seleni/Zn 1 ml/ Thiamine HCl 200 mg/ Lactated Ringer's 1,013 mls @ 90 mls/hr IV ONETIME ONE Stop: 04/24/18 21:15 Last Admin: 04/24/18 09:45 Dose: 90 mls/hr Dextrose/Lactated Ringer's (Dextrose 5%-Lactated Ringers) 1,000 mls @ 90 mls/ hr IV ASDIRECTED [facility] Last Infusion: 04/25/18 11:30 Dose: Infused Cefoxitin Sodium 2 gm/ Sodium (Chloride) 50 mls @ 100 mls/hr IV ONETIME ONE Stop: 04/25/18 08:29 Last Admin: 04/25/18 08:45 Dose: 100 mls/hr Linezolid (Zyvox) Confirm Administered Dose 300 mls @ as directed .ROUTE .STK- MED ONE Stop: 04/25/18 07:05 Lactated Ringer's (Ringers, Lactated) Confirm Administered Dose 1,000 mls @ as directed .ROUTE [facility] ONE Stop: 04/25/18 10:02 Dextrose/Lactated Ringer's (Dextrose 5%-Lactated Ringers) 1,000 mls @ 150 [facility]ls[facility] Last Admin: 04/26/18 01:51 Dose: 150 mls/hr Multivitamins/Minerals 10 ml/Thiamine HCl 200 mg/ Chromium/Copper/Manganese/ Seleni/Zn 1 ml/ Dextrose/Lactated Ringer's 1,013 mls @ 150 mls/hr IV DAILY@ 1600 [facility] Last Admin: 04/25/18 18:36 Dose: 150 mls/hr Cefoxitin Sodium 2 gm/ Sodium (Chloride) 50 mls @ 100 mls/hr IV Q6H [facility] Stop: 04/26/18 03:29 Last Admin: 04/26/18 02:03 Dose: 100 mls/hr Dextrose/Lactated Ringer's (Dextrose 5%-Lactated Ringers) 1,000 mls @ 100 mls/ hr IV ASDIRECTED [facility] Last Admin: 04/27/18 02:11 Dose: 100 mls/hr Multivitamins/Minerals 10 ml/Thiamine HCl 200 mg/ Chromium/Copper/Manganese/ Seleni/Zn 1 ml/ Dextrose/Lactated Ringer's 1,013 mls @ 100 mls/hr IV DAILY@ 1600 [facility] Last Admin: 04/26/18 15:32 Dose: 100 mls/hr Dextrose/Lactated Ringer's (Dextrose 5%-Lactated Ringers) 1,000 mls @ 75 mls/ hr IV ASDIRECTED [facility] Multivitamins/Minerals 10 ml/Thiamine HCl 200 mg/ Chromium/Copper/Manganese/ Seleni/Zn 1 ml/ Dextrose/Lactated Ringer's 1,013 mls @ 75 mls/hr IV DAILY@1600 [facility] Iohexol (Omnipaque-300) 50 ml IVPUSH ONETIME PRN PRN Reason: radiology exam Last Admin: 04/26/18 05:19 Dose: 50 ml Ketamine HCl (Ketalar) 29 mg IV ASDIRECTED [facility] Labetalol HCl (Normodyne) 5 mg IVPUSH Q5M PRN PRN Reason: SBP over 160 OR DBP over 95 Losartan Potassium (Cozaar) 50 mg PO DAILY [facility] Last Admin: 04/28/18 08:40 Dose: 50 mg Meropenem (Merrem) Confirm Administered Dose 500 mg .ROUTE .STK-MED ONE Stop: 04/25/18 06:55 Last Admin: 04/25/18 09:46 Dose: 500 mg Metoclopramide HCl (Reglan) 10 mg IVPUSH Q6H PRN PRN Reason: NAUSEA NOT CONTROL BY ZOFRAN Miscellaneous Information (Remove Patch) 1 ea TRDERM ONETIME ONE Stop: 04/27/18 10:01 Last Admin: 04/27/18 09:33 Dose: 1 ea Mometasone Furoate (Asmanex Hfa 200mcg) 0 gm INH BIDRT [facility] Last Admin: 04/28/18 07:19 Dose: 1 puff Naloxone HCl (Narcan) 0.1 mg IV ASDIRECTED PRN PRN Reason: decreased respiratory rate Neostigmine Methylsulfate (Neostigmine) Confirm Administered Dose 5 mg .ROUTE .STK-MED ONE Stop: 04/25/18 07:14 Scopolamine Patch (Check) 1 each TOP DAILY [facility] Stop: 04/27/18 12:07 Last Admin: 04/27/18 08:36 Dose: 1 each Ondansetron HCl (Zofran) 4 mg IVPUSH Q4H PRN PRN Reason: Nausea/Vomiting Last Admin: 04/28/18 08:32 Dose: 4 mg Ondansetron HCl (Zofran) Confirm Administered Dose 4 mg .ROUTE .STK-MED ONE Stop: 04/25/18 07:14 Pantoprazole Sodium (Protonix Iv) 40 mg IV Q12H [facility] Last Admin: 04/25/18 04:11 Dose: 40 mg Pantoprazole Sodium (Protonix Iv) 40 mg IV Q24H [facility] Last Admin: 04/27/18 05:46 Dose: 40 mg Pantoprazole Sodium (Protonix) 40 mg PO ACBREAKFAST [facility] Last Admin: 04/28/18 08:37 Dose: 40 mg Propofol (Diprivan 20 Ml) Confirm Administered Dose 200 mg .ROUTE .STK-MED ONE Stop: 04/24/18 07:53 Propofol (Diprivan 20 Ml) Confirm Administered Dose 200 mg .ROUTE .STK-MED ONE Stop: 04/25/18 07:14 Rocuronium [place] (Zemuron) Confirm Administered Dose 50 mg .ROUTE .STK-MED ONE Stop: 04/25/18 07:14 Scopolamine (Transderm-Scop) 1.5 mg TOP Q72H [facility] Stop: 04/27/18 10:00 Last Admin: 04/25/18 14:38 Dose: Not Given Simvastatin (Zocor) 40 mg PO BEDTIME [facility] Last Admin: 04/27/18 20:36 Dose: 40 mg Succinylcholine Chloride (Quelicin) Confirm Administered Dose 200 mg .ROUTE .STK -MED ONE Stop: 04/25/18 07:14
--- NOTE | 2018-04-28 13:01 | OR ---
DATE OF PROCEDURE: 04/25/2018 PREOPERATIVE DIAGNOSIS: Partial small bowel obstruction with history of previous Amor-en-Y gastric bypass. POSTOPERATIVE DIAGNOSES: 1. Partial small bowel obstruction with history of previous Amor-en-Y gastric bypass. 2. Extensive intraabdominal adhesions. OPERATIVE PROCEDURES: Exploratory laparotomy with lysis of extensive adhesions and: 1. Revision of jejunojejunostomy component of Amor-en-Y gastric bypass (15324). 2. Placement of Interceed mesh to limit adhesion formation between pelvic and abdominal wall with underlying viscera (79227). ANESTHESIA: General. ENVIRONMENTAL REMEDIATION ENGINEER: COLUMBA Stanton. INDICATION FOR PROCEDURE: This is a 77-year-old admitted with ongoing problems with nausea and vomiting and biliary reflux. She is status post previous Amor-en-Y procedure and would appear to be having of a partial small bowel obstruction, probably at the level of the jejunojejunostomy resulting in bile reflux and as well as nausea and vomiting to ingested food as well. The plan is to proceed with exploratory laparotomy, lysis of adhesions, and probable revision of the jejunojejunostomy. Potential risks of the procedure including bleeding and infection, possible leaks from GI tract closures, possible persistence of the problem or recurrence of the problem over time were all reviewed, and the patient wishes to proceed. DETAILS OF PROCEDURE: The patient was taken to the operating room and placed in a supine position. After general endotracheal anesthesia was induced, a Fink catheter was inserted and the abdomen was prepped and draped. A midline incision from the umbilicus roughly handbreadths superior to that was made and carried down through the full-thickness abdominal wall. Upon entering the peritoneal cavity, the patient was noted to have quite a bit of extensive adhesions to the Amor limb as well as the area of the jejunojejunostomy. These adhesions were then taken down to the point of the proximal end of the Amor limb. At that point, no further problems were noted per se. The jejunojejunostomy did appear to be somewhat narrowed and given this, this was then revised both to alleviate any potential partial obstruction as well as to create a greater distance of the point where the biliopancreatic limb entered the remainder of the small bowel to limit problems with bilious reflux. The small bowel consisting of the biliopancreatic limb as it attached to the jejunojejunostomy was then divided with the OLIVIA stapler. The end of the biliopancreatic limb was then resected with a OLIVIA stapler as well as was the underlying mesentery. The jejunojejunostomy had been around 80 cm distal to the proximal anastomosis, i.e., the Amor limb was roughly 80 cm. This was then increased by moving the new anastomosis down to 150 cm. At that point, the [id number] enteroenterostomy was accomplished with internal firing of the Endo-OLIVIA 60 mm stapler, common opening was closed transversely with purple load and as well as anastomosis reinforced with some 3-0 Vicryl stitch and the mesenteric defect closed with a 2-0 silk stitch. At that point, the abdomen was irrigated with antibiotic- containing saline solution. No additional abnormalities were noted. The patient was felt to be high risk for adhesion formation once again to both the Amor limb as well as the lower abdomen and pelvis and the underlying viscera adjacent to those areas. Given this, Interceed mesh was placed across those areas and then the midline fascia was then approximated with #2 Vicryl stitch and the subcutaneous tissue with 2 layers of 3-0 and 4-0 Vicryl stitch, and the skin with chip. Dressing was applied. The patient was taken to the recovery room in satisfactory condition. There were no evident complications. Lj Zarate MD /[id number]
--- NOTE | 2018-04-28 14:37 | PN ---
DATE OF SERVICE: 04/27/2018 The patient has been afebrile with stable vital signs. Oral intake has been good. She has had no further nausea or emesis and reports a little bit better. We will switch her to oral pain medication consisting of Rulo today and give her some bowel stimulation. She would like to have home care set up, which we will begin initiating today, and she may be ready for discharge home perhaps tomorrow or the next day. Lj Zarate MD /[id number]
--- NOTE | 2018-04-28 14:40 | PN ---
DATE OF SERVICE: 04/26/2018 The patient has been afebrile with stable vital signs. She has done better with the oral intake and not having any further emesis or bringing things up per se. The upper GI x-ray looked good. In general, she does have a fairly dilated esophagus, and she will be instructed that she should probably keep sitting up for a period of time after eating. Otherwise, we will go up to a step-2 diet today with BUT[employer] MEAT, going to back down on the IV rate, maximize activity, and work with pulmonary toilet. Lj Zarate MD /[id number]
== END 2018-04-28 11:41 | disposition home health service (06) | DRG 330 ==
LOC: JP.SDSSCHI 05:20 → JP.SDS 07:26 → JP.MS 09:20 → EDSTATUS 09:45
PROVIDERS: ADMIT Surgery; ATTEND Surgery
PROC: 0DB48ZX Excision of Esophagogastric Junction, Via Natural or Artificial Opening Endoscopic, Diagnostic (ICD-10-PCS; principal; 2018-04-24)
PROC: 0DBA0ZZ Excision of Jejunum, Open Approach (ICD-10-PCS; 2018-04-25)
PROC: 0DNA0ZZ Release Jejunum, Open Approach (ICD-10-PCS; 2018-04-25)
PROC: 0DNW0ZZ Release Peritoneum, Open Approach (ICD-10-PCS; 2018-04-25)
PROC: 3E0M05Z Introduction of Adhesion Barrier into Peritoneal Cavity, Open Approach (ICD-10-PCS; 2018-04-25)
DX: K21.9 Gastro-esophageal reflux disease without esophagitis (principal); K22.10 Ulcer of esophagus without bleeding; K56.51 Intestinal adhesions [bands], with partial obstruction; R49.0 Dysphonia; Z85.21 Personal history of malignant neoplasm of larynx; Z92.3 Personal history of irradiation; I10 Essential (primary) hypertension; Z86.14 Personal history of Methicillin resistant Staphylococcus aureus infection; E53.9 Vitamin B deficiency, unspecified; E53.8 Deficiency of other specified B group vitamins; Z68.25 Body mass index [BMI] 25.0-25.9, adult; Z98.84 Bariatric surgery status; Z98.0 Intestinal bypass and anastomosis status; Z90.3 Acquired absence of stomach [part of]; Z87.19 Personal history of other diseases of the digestive system
CPT/HCPCS: 74240; 87081; 94640; 94762; 97161-GP; 97530-GP; 97535-GP; A9270-GY; C9113; C9399; J0171; J0330; J0694; J1100; J1170; J1644; J2020; J2185; J2405; J2704; J2710; J2795; J3010; J3411; J3420; J3490; J7042; J7050; J7120; J7620-GY; Q9967

== ENCOUNTER 2018-09-03 18:42 | Inpatient (IN) | payer MEDICARE, BC ==
[2018-09-03] MEDS ORDERED: Sodium Chloride 0.9% 10 ML Syringe FLUSH PRN (19:34)
[2018-09-03] MEDS ORDERED: Ondansetron 4 MG/2 ML SDV IVPUSH ONE (19:35)
[2018-09-03] MEDS ORDERED: fentaNYL 100 MCG/2 ML SDV IVPUSH ONE (19:35)
--- NOTE | 2018-09-03 19:37 | EDM.PDOC ---
ED HPI GENERAL MEDICAL PROBLEM - General Chief Complaint: Gastrointestinal Problem Stated Complaint: ABD PAIN Time Seen by Provider: 09/03/18 19:31 Source of Information: Reports: Patient, RN Notes Reviewed History Limitations: Reports: No Limitations - History of Present Illness INITIAL COMMENTS - FREE TEXT/NARRATIVE: 77-year-old female presents emergency department today complaint of abdominal pain it is mostly in the epigastric region she states is been ongoing for 24 hours but has progressively gotten worse she is still passing gas she is nauseated no vomiting yet does have a history of a gastric bypass epigastric/abd pain Pain Score (Numeric/FACES): 7 - Related Data Allergies Allergy/AdvReac Type Severity Reaction Status Date / Time fluticasone propionate Allergy Unknown Difficulty Verified 09/03/18 19:15 [From Advair Diskus] Breathing salmeterol xinafoate Allergy Unknown Difficulty Verified 09/03/18 19:15 [From Advair Diskus] Breathing Sulfa (Sulfonamide Allergy Rash Verified 09/03/18 19:15 Antibiotics) Home Meds: Home Meds Albuterol [Proventil HFA] 2 puff INH QID PRN 08/24/13 [History] Losartan/Hydrochlorothiazide [Hyzaar 50-12.5 Tablet] 1 each PO DAILY 08/24/13 [ History] Triamcinolone Acetonide [Kenalog 0.1% Crm] 1 applic TOP TID PRN 08/24/13 [ History] amLODIPine [Norvasc] 5 mg PO DAILY 08/24/13 [History] Mv-Mn/FA/Vit K/Lycop/Lut/Zeaxa [Ocuvite Eye + Multi Tablet] 1 tab PO DAILY 06/25 [History] Simvastatin [Zocor] 40 mg PO DAILY 07/10/16 [History] metroNIDAZOLE [metroNIDAZOLE 0.75% Gel] 1 dose TOP BID 07/10/16 [History] Biotin 5,000 mcg PO DAILY 10/04/16 [History] Calcium Citrate/Vitamin D3 [Calcium Citrate - Vit D Tablet] 1 each PO BID [History] Cholecalciferol (Vitamin D3) [Vitamin D] 5,000 unit PO DAILY 10/04/16 [History] Fluticasone Propionate [Flovent HFA] 1 puff INH BID 10/04/16 [History] Vitamin B Complex [B Complex] 1 each PO DAILY 10/04/16 [History] Sucralfate [Carafate] 1 gm PO QID 06/28/17 [History] Zinc 50 mg PO DAILY 06/28/17 [History] Acetaminophen/HYDROcodone [Steinauer 325-5 MG] 1 tab PO Q4H PRN #40 tablet 04/28/18 [Rx] Docusate Sodium [Colace] 100 mg PO BID #100 cap 04/28/18 [Rx] Iron,Carbonyl/Ascorbic Acid [Iron 100-Vitamin C Tablet] 1 each PO DAILY #0 04/28 [Rx] Bisacodyl [Dulcolax] 10 mg PO BID PRN 09/03/18 [History] Past Medical History HEENT History: Reports: Allergic Rhinitis, Impaired Vision Cardiovascular History: Reports: High Cholesterol, Hypertension Respiratory History: Reports: Asthma Gastrointestinal History: Reports: GERD Genitourinary History: Reports: Urinary Incontinence [employer] PROFESSOR History: Reports: Dysfunctional Uterine Bleeding, Fibroids, Musculoskeletal History: Reports: Osteoarthritis Hematologic History: Reports: Anemia, B12 Deficiency, Blood Transfusion(s), Iron Deficiency Oncologic (Cancer) History: Reports: Other (See Below) Other Oncologic History: vocal cords Dermatologic History: Reports: Psoriasis - Infectious Disease History Infectious Disease History: Reports: Chicken Pox, Measles, Mumps Other Infectious Disease History: tested positive for MRSA with nasal swab - Past Surgical History HEENT Surgical History: Reports: Other (See Below) Other HEENT Surgeries/Procedures: 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 gastrectomy Female Surgical History: Reports: Breast Biopsy, Hysterectomy, Oophorectomy, Other (See Below) Other Female Surgeries/Procedures: bladder suspension x 2 Neurological Surgical History: Reports: Discectomy Musculoskeletal Surgical History: Reports: Arthroscopic Knee, Hip Replacement, Other (See Below) Other Musculoskeletal Surgeries/Procedures:: bilateral Bunionectomy. right hip Social & Family History - Family History Family Medical History: Noncontributory Cardiac: Reports: CAD - Tobacco Use Smoking Status *Q: Never Smoker - Caffeine Use Caffeine Use: Reports: Soda - Recreational Drug Use Recreational Drug Use: No ED ROS GENERAL - Review of Systems Review Of Systems: See Below Constitutional: Reports: No Symptoms HEENT: Reports: No Symptoms Respiratory: Reports: No Symptoms Cardiovascular: Reports: No Symptoms GI/Abdominal: Reports: Abdominal Pain, Flatus, Nausea. Denies: Constipation, Diarrhea, Vomiting : Reports: No Symptoms Musculoskeletal: Reports: No Symptoms Skin: Reports: No Symptoms ED EXAM, GI/ABD - Physical Exam Exam: See Below Exam Limited By: No Limitations General Appearance: Alert, WD/WN, No Apparent Distress Neck: Normal Inspection, Supple, Non-Tender, Full Range of Motion Respiratory/Chest: No Respiratory Distress, Lungs Clear, Normal Breath Sounds, No Accessory Muscle Use, Chest Non-Tender Cardiovascular: Regular Rate, Rhythm, No Murmur GI/Abdominal Exam: Soft, No Distention, No Abnormal Bruit, Guarding, Tender ( Epigastric region) Course - Vital Signs Last Recorded V/S: Last Vital Signs Temp 96.1 F 09/03/18 19:16 Pulse 69 09/03/18 19:16 Resp 13 09/03/18 19:16 BP 151/80 H 09/03/18 19:16 Pulse Ox 95 09/03/18 19:16 - Orders/Labs/Meds Orders: Active Orders 24 hr Category Date Time Status Peripheral IV Care [RC] . DIRECTED Care 09/03/18 19:34 Active UA W/MICROSCOPIC [URIN] Urgent Lab 09/03/18 19:34 Ordered Iopamidol [Isovue-300 (61%)] Med 09/03/18 20:30 Active 98 ml IV . DIRECTED Lactated Ringers [Ringers, Lactated] 1,000 ml Med 09/03/18 19:45 Active IV ASDIRECTED Sodium Chloride 0.9% [Normal Saline] 70 ml Med 09/03/18 20:30 Active IV ASDIRECTED Sodium Chloride 0.9% [Saline Flush] Med 09/03/18 19:34 Active 10 ml FLUSH ASDIRECTED PRN Peripheral IV Insertion Adult [OM.PC] Urgent Oth 09/03/18 19:34 Ordered Medication Orders Lactated Ringer's (Ringers, Lactated) 1,000 mls @ 999 mls/hr IV ASDIRECTED BETY Last Admin: 09/03/18 21:16 Dose: 999 mls/hr Sodium Chloride (Normal Saline) 70 mls @ 2 mls/sec IV ASDIRECTED BETY Last Admin: 09/03/18 20:52 Dose: 2 mls/sec Iopamidol (Isovue-300 (61%)) 98 ml IV . DIRECTED BETY Last Admin: 09/03/18 20:52 Dose: 100 ml Sodium Chloride (Saline Flush) 10 ml FLUSH ASDIRECTED PRN PRN Reason: Keep Vein Open Last Admin: 09/03/18 20:34 Dose: 10 ml Labs: Laboratory Tests 09/03/18 09/03/18 09/03/18 Range/Units 19:40 19:40 19:40 WBC 8.2 (4.5-11.0) K/uL RBC 4.79 (3.30-5.50) M/uL Hgb 15.1 H D (12.0-15.0) g/dL Hct 45.4 (36.0-48.0) % MCV 95 (80-98) fL MCH 32 H (27-31) pg MCHC 33 (32-36) % Plt Count 212 (150-400) K/uL Neut % (Auto) 71 H (36-66) % Lymph % (Auto) 19 L (24-44) % Spencer % (Auto) 9 H (2-6) % Eos % (Auto) 1 L (2-4) % Baso % (Auto) 0 (0-1) % Sodium 141 (140-148) mmol/L Potassium 3.8 (3.6-5.2) mmol/L Chloride 102 (100-108) mmol/L Carbon Dioxide 28 (21-32) mmol/L Anion Gap 10.6 (5.0-14.0) mmol/L BUN 24 H D (7-18) mg/dL Creatinine 1.0 (0.6-1.0) mg/dL Est Cr Clr Drug Dosing 43.07 mL/min Estimated GFR (MDRD) 54 L (>60) Glucose 126 H (74-106) mg/dL Lactic Acid 2.2 H (0.4-2.0) mmol/L Calcium 10.0 D (8.5-10.1) mg/dL Total Bilirubin 0.4 (0.2-1.0) mg/dL AST 40 H (15-37) U/L ALT 73 D (12-78) U/L Alkaline Phosphatase 161 H (46-116) U/L Troponin I < 0.017 (0.000-0.056) ng/mL Total Protein 6.8 (6.4-8.2) g/dL Albumin 3.4 (3.4-5.0) g/dL Globulin 3.4 (2.3-3.5) g/dL Albumin/Globulin Ratio 1.0 L (1.2-2.2) Lipase 40 L (73-393) U/L Meds: Medications Generic Name Dose Route Start Last Admin Trade Name Freq PRN Reason Stop Dose Admin Lactated Ringer's 1,000 mls @ 999 mls/hr 09/03/18 19:45 09/03/18 21:16 Ringers, Lactated IV 999 mls/hr ASDIRECTED BETY Administration Sodium Chloride 70 mls @ 2 mls/sec 09/03/18 20:30 09/03/18 20:52 Normal Saline IV 2 mls/sec ASDIRECTED BETY Administration Iopamidol 98 ml 09/03/18 20:30 09/03/18 20:52 Isovue-300 (61%) IV 100 ml . DIRECTED BETY Administration Sodium Chloride 10 ml 09/03/18 19:34 09/03/18 20:34 Saline Flush FLUSH 10 ml ASDIRECTED PRN Administration Keep Vein Open Discontinued Medications Generic Name Dose Route Start Last Admin Trade Name Freq PRN Reason Stop Dose Admin Fentanyl 50 mcg 09/03/18 19:35 09/03/18 20:34 Sublimaze IVPUSH 09/03/18 19:36 50 mcg ONETIME ONE Administration Ondansetron HCl 4 mg 09/03/18 19:35 09/03/18 20:31 Zofran IVPUSH 09/03/18 19:36 4 mg ONETIME ONE Administration Sodium Chloride 10 ml 09/03/18 20:26 09/03/18 20:52 Saline Flush FLUSH 09/03/18 20:27 10 ml ONETIME ONE Administration Departure - Departure Time of Disposition: 21:53 Disposition: Admitted As Inpatient 67 Condition: Fair Clinical Impression: Partial small bowel obstruction - Discharge Information Referrals: Mark Conner MD [Primary Care Provider] - Forms: ED Department Discharge - My Orders Last 24 Hours: My Active Orders 09/03/18 19:34 Peripheral IV Care [RC] . DIRECTED UA W/MICROSCOPIC [URIN] Urgent Sodium Chloride 0.9% [Saline Flush] 10 ml FLUSH ASDIRECTED PRN Peripheral IV Insertion Adult [OM.PC] Urgent 09/03/18 19:45 Lactated Ringers [Ringers, Lactated] 1,000 ml IV ASDIRECTED 09/03/18 20:30 Iopamidol [Isovue-300 (61%)] 98 ml IV . DIRECTED Sodium Chloride 0.9% [Normal Saline] 70 ml IV ASDIRECTED - Assessment/Plan Last 24 Hours: My Active Orders 09/03/18 19:34 Peripheral IV Care [RC] . DIRECTED UA W/MICROSCOPIC [URIN] Urgent Sodium Chloride 0.9% [Saline Flush] 10 ml FLUSH ASDIRECTED PRN Peripheral IV Insertion Adult [OM.PC] Urgent 09/03/18 19:45 Lactated Ringers [Ringers, Lactated] 1,000 ml IV ASDIRECTED 09/03/18 20:30 Iopamidol [Isovue-300 (61%)] 98 ml IV . DIRECTED Sodium Chloride 0.9% [Normal Saline] 70 ml IV ASDIRECTED Plan: Assessment Acuity = acute Site and laterality = partial small bowel obstruction complicated in a patient with history of gastric bypass Etiology = suspicious for underlying adhesion Manifestations = abdominal pain, nausea Location of injury = Home Lab values = CBC, CMP unremarkable troponin is negative CT scan does describe obstruction above Plan Called discussed case with Dr. Zarate at 21:50 he kindly agreed to the patient will evaluate her in the hospital, planned for fentanyl for pain control Zosyn for nausea and vomiting IV fluids flat and upright This note was dictated using [employer] voice recognition software please call with any questions on syntax or grammar.
[2018-09-03] MEDS ORDERED: Lactated Ringers 1,000 ML IV SCH (19:45)
[2018-09-03] MEDS ORDERED: Sodium Chloride 0.9% 10 ML Syringe FLUSH ONE (20:26)
[2018-09-03] MEDS ORDERED: Iopamidol 612 MG/ML 100 ML Bottle IV SCH (20:30)
--- NOTE | 2018-09-03 21:45 | CRLCT ---
INDICATION: Epigastric pain. Status post Amor-en-Y gastric bypass. COMPARISON: COMPARISON DATE TECHNIQUE: CT examination of the abdomen and pelvis was performed with the uneventful intravenous administration of 98 cc of Omnipaque 300 while 3 mm thick axial sections were obtained from the lung bases through the pubic symphysis. Oral contrast was not administered. Please note that all CT scans at this facility use dose modulation, iterative reconstruction, and/or weight-based dosing when appropriate to reduce radiation dose to as low as reasonably achievable. FINDINGS: In the abdomen, the liver, spleen, pancreas, and adrenals are normal in appearance. The kidneys are normal in appearance. The gallbladder is normal in appearance. The abdominal aorta is normal in caliber with no sign of dilatation. There is no sign of retroperitoneal mass or adenopathy. There are several lines of surgical chip in the GE junction region and gastric fundus consistent with gastric bypass surgery. There is no sign of stricture or dilatation at the esophagojejunostomy. The small bowel anastomosis in the left upper quadrant is widely patent. There is mild dilatation of small-bowel loops in the left upper quadrant, extending to an area of narrowing located in the left upper abdomen on axial image 64 series 2 and coronal image 38 series 3. This could be an adhesion The distal stomach, the rest of the loops of small bowel, and colon in the abdomen are normal in appearance. In the pelvis, the appendix is normal in appearance with no sign of inflammatory process. The loops of small bowel and colon in the pelvis are normal in appearance. The uterus is absent and the adnexal regions are normal in appearance. There is a tiny amount of free fluid in the right pelvis, nonspecific. The urinary bladder is normal in appearance. There is no sign of pelvic or inguinal mass or adenopathy. The lung bases are clear. There is moderate L3-4 and L5-S1 disc degenerative disease. There is moderate sclerosis of the vertebral bodies adjacent to the right L3-4 disc space. The components of a right total hip prosthesis are in anatomic alignment with no sign of fracture, loosening, or dislocation. IMPRESSION: CT of the abdomen shows mild dilatation of proximal small bowel loops in the left upper quadrant extending to a point of transition in the left paramedian upper abdomen, probably an adhesion. The findings are that of mild partial small bowel obstruction. Satisfactory changes from a gastric bypass procedure with no sign of any stricture or dilatation related to the anastomoses. CT of the pelvis shows a tiny amount of free fluid in the right pelvis, nonspecific. Status post hysterectomy. Please note that all CT scans at this facility use dose modulation, iterative reconstruction, and/or weight-based dosing when appropriate to reduce radiation dose to as low as reasonably achievable. Dictated by Joe Elena MD @ Sep 03 2018 9:33PM Signed by Dr. Joe Elena @ Sep 03 2018 9:43PM
[2018-09-03] MEDS ORDERED: Ondansetron 4 MG/2 ML SDV IV PRN (21:56)
[2018-09-03] MEDS ORDERED: fentaNYL 100 MCG/2 ML SDV IVPUSH PRN (21:58)
[2018-09-03] MEDS ORDERED: Albuterol 8 GM Inhaler INH PRN (21:59)
[2018-09-03] MEDS ORDERED: Mometasone Furoate HFA 100mcg/Puff 13 GM Inhaler INH SCH (22:30)
[2018-09-03] MEDS: Lactated Ringers 1,000 ML IV SCH (23:49)
--- NOTE | 2018-09-04 04:18 | CRLCR ---
INDICATION: Small bowel obstruction. COMPARISON: None. FINDINGS/IMPRESSION: Nonspecific bowel gas pattern with mild gaseous dilation of bowel loops in the left upper quadrant and left mid abdomen, and prominent volume of stool in the right colon. Findings may reflect an ileus versus low-grade or early small bowel obstruction. No free air is seen. Postsurgical changes are noted in the left mid abdomen. There is a right hip prosthesis. Spinal degenerative changes are present. Dictated by Santi Francois MD @ 09/04/2018 4:16:43 AM Dictated by: Santi Francois MD @ 09/04/2018 04:16:57 (Electronically Signed)
--- NOTE | 2018-09-04 07:24 | PCM.HP ---
H&P History of Present Illness - General Date of Service: 09/04/18 Admit Problem/Dx: Admission Diagnosis/Problem Admission Diagnosis/Problem Small bowel obstruction Source of Information: Patient History Limitations: Reports: No Limitations - History of Present Illness Initial Comments - Free Text/Narative: Felisha was seen in the clinic yesterday for a routine partial gastrectomy follow up. She stated she was feeling good and had no problems. After her appointment she went to [place] and ate lunch with her sister and after lunch developed mid abdominal pain. She said she had a little pain the night before but nothing to mention. This time the abdominal pain didn't go away and she went into to the ED. Last BM was yesterday morning. Associated Symptoms: Reports: No Other Symptoms epigastric/abd pain Pain Score (Numeric/FACES): 4 - Related Data Allergies/Adverse Reactions: Allergies Allergy/AdvReac Type Severity Reaction Status Date / Time fluticasone propionate Allergy Unknown Difficulty Verified 09/03/18 19:15 [From Advair Diskus] Breathing salmeterol xinafoate Allergy Unknown Difficulty Verified 09/03/18 19:15 [From Advair Diskus] Breathing Sulfa (Sulfonamide Allergy Rash Verified 09/03/18 19:15 Antibiotics) Home Medications: Home Meds Albuterol [Proventil HFA] 2 puff INH QID PRN 08/24/13 [History] Losartan/Hydrochlorothiazide [Hyzaar 50-12.5 Tablet] 1 each PO DAILY 08/24/13 [ History] Triamcinolone Acetonide [Kenalog 0.1% Crm] 1 applic TOP TID PRN 08/24/13 [ History] amLODIPine [Norvasc] 5 mg PO DAILY 08/24/13 [History] Mv-Mn/FA/Vit K/Lycop/Lut/Zeaxa [Ocuvite Eye + Multi Tablet] 1 tab PO DAILY 06/25 [History] Simvastatin [Zocor] 40 mg PO DAILY 07/10/16 [History] metroNIDAZOLE [metroNIDAZOLE 0.75% Gel] 1 dose TOP BID 07/10/16 [History] Biotin 5,000 mcg PO DAILY 10/04/16 [History] Calcium Citrate/Vitamin D3 [Calcium Citrate - Vit D Tablet] 1 each PO BID [History] Cholecalciferol (Vitamin D3) [Vitamin D] 5,000 unit PO DAILY 10/04/16 [History] Vitamin B Complex [B Complex] 1 each PO DAILY 10/04/16 [History] Sucralfate [Carafate] 1 gm PO QID 06/28/17 [History] Zinc 50 mg PO DAILY 06/28/17 [History] Acetaminophen/HYDROcodone [[place] 325-5 MG] 1 tab PO Q4H PRN #40 tablet 04/28/18 [Rx] Docusate Sodium [Colace] 100 mg PO BID #100 cap 04/28/18 [Rx] Iron,Carbonyl/Ascorbic Acid [Iron 100-Vitamin C Tablet] 1 each PO DAILY #0 04/28 [Rx] Bisacodyl [Dulcolax] 10 mg PO BID PRN 09/03/18 [History] Fluticasone Propionate [Flovent HFA 220 MCG] 2 puff INH BID 09/04/18 [History] Past Medical History HEENT History: Reports: Allergic Rhinitis, Impaired Vision Cardiovascular History: Reports: High Cholesterol, Hypertension Respiratory History: Reports: Asthma Gastrointestinal History: Reports: GERD Genitourinary History: Reports: Urinary Incontinence CH[employer] History: Reports: Dysfunctional Uterine Bleeding, Fibroids, Musculoskeletal History: Reports: Osteoarthritis Hematologic History: Reports: Anemia, B12 Deficiency, Blood Transfusion(s), Iron Deficiency Oncologic (Cancer) History: Reports: Other (See Below) Other Oncologic History: vocal cords Dermatologic History: Reports: Psoriasis - Infectious Disease History Infectious Disease History: Reports: Chicken Pox, Measles, Mumps Other Infectious Disease History: tested positive for MRSA with nasal swab - Past Surgical History HEENT Surgical History: Reports: Other (See Below) Other HEENT Surgeries/Procedures: 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 gastrectomy Female Surgical History: Reports: Breast Biopsy, Hysterectomy, Oophorectomy, Other (See Below) Other Female Surgeries/Procedures: bladder suspension x 2 Neurological Surgical History: Reports: Discectomy Musculoskeletal Surgical History: Reports: Arthroscopic Knee, Hip Replacement, Other (See Below) Other Musculoskeletal Surgeries/Procedures:: bilateral Bunionectomy. right hip Social & Family History - Family History Family Medical History: Noncontributory Cardiac: Reports: CAD - Tobacco Use Smoking Status *Q: Never Smoker - Caffeine Use Caffeine Use: Reports: Soda - Recreational Drug Use Recreational Drug Use: No H&P Review of Systems - Review of Systems: Review Of Systems: ROS reveals no pertinent complaints other than HPI. Exam - Exam Exam: See Below - Vital Signs Vital Signs: Last Vital Signs Temp 97 F 09/04/18 07:15 Pulse 51 L 09/04/18 07:15 Resp 16 09/04/18 07:15 BP 121/88 09/04/18 07:15 Pulse Ox 94 L 09/04/18 07:15 Weight: 145 lb 12.8 oz - Exam Quality Assessment: DVT Prophylaxis General: Alert, Oriented, Cooperative HEENT: PERRLA, Conjunctiva Clear Neck: Supple, Trachea Midline Lungs: Clear to Auscultation, Normal Respiratory Effort Cardiovascular: Regular Rate, Regular Rhythm GI/Abdominal Exam: Normal Bowel Sounds, Soft, No Distention, Other (minimal tenderness in the left upper and mid abdominal quadrant ) (Female) Exam: Deferred Rectal (Female) Exam: Deferred Back Exam: Normal Inspection, Full Range of Motion Extremities: Normal Inspection, Normal Range of Motion Skin: Warm, Dry, Intact Neurological: Cranial Nerves Intact, Reflexes Equal Bilateral Neuro Extensive - Mental Status: Alert, Oriented x3, Normal Mood/Affect, Normal Cognition Neuro Extensive - Motor, Sensory, Reflexes: CN II-XII Intact, Normal Gait Psychiatric: Alert, Normal Affect, Normal Mood - Patient Data Lab Results Last 24 hrs: Laboratory Results - last 24 hr 09/03/18 09/03/18 09/03/18 Range/Units 19:40 19:40 19:40 WBC 8.2 (4.5-11.0) K/uL RBC 4.79 (3.30-5.50) M/uL Hgb 15.1 H D (12.0-15.0) g/dL Hct 45.4 (36.0-48.0) % MCV 95 (80-98) fL MCH 32 H (27-31) pg MCHC 33 (32-36) % Plt Count 212 (150-400) K/uL Neut % (Auto) 71 H (36-66) % Lymph % (Auto) 19 L (24-44) % Forrest % (Auto) 9 H (2-6) % Eos % (Auto) 1 L (2-4) % Baso % (Auto) 0 (0-1) % Sodium 141 (140-148) mmol/L Potassium 3.8 (3.6-5.2) mmol/L Chloride 102 (100-108) mmol/L Carbon Dioxide 28 (21-32) mmol/L Anion Gap 10.6 (5.0-14.0) mmol/L BUN 24 H D (7-18) mg/dL Creatinine 1.0 (0.6-1.0) mg/dL Est Cr Clr Drug Dosing 43.07 mL/min Estimated GFR (MDRD) 54 L (>60) Glucose 126 H (74-106) mg/dL Lactic Acid 2.2 H (0.4-2.0) mmol/L Calcium 10.0 D (8.5-10.1) mg/dL Total Bilirubin 0.4 (0.2-1.0) mg/dL AST 40 H (15-37) U/L ALT 73 D (12-78) U/L Alkaline Phosphatase 161 H (46-116) U/L Troponin I < 0.017 (0.000-0.056) ng/mL Total Protein 6.8 (6.4-8.2) g/dL Albumin 3.4 (3.4-5.0) g/dL Globulin 3.4 (2.3-3.5) g/dL Albumin/Globulin Ratio 1.0 L (1.2-2.2) Lipase 40 L (73-393) U/L Urine Color Urine Appearance Urine pH (4.5-8.0) Ur Specific Lamar (1.008-1.030) Urine Protein (NEGATIVE) mg/dL Urine Glucose (UA) (NEGATIVE) mg/dL Urine Ketones (NEGATIVE) mg/dL Urine Occult Blood (NEGATIVE) Urine Nitrite (NEGATIVE) Urine Bilirubin (NEGATIVE) Urine Urobilinogen (NORMAL) mg/dL Ur Leukocyte Esterase (NEGATIVE) Urine RBC (0-5) Urine WBC (0-5) Ur Epithelial Cells Amorphous Sediment Urine Bacteria Urine Mucus 09/03/18 Range/Units 22:39 WBC (4.5-11.0) K/uL RBC (3.30-5.50) M/uL Hgb (12.0-15.0) g/dL Hct (36.0-48.0) % MCV (80-98) fL MCH (27-31) pg MCHC (32-36) % Plt Count (150-400) K/uL Neut % (Auto) (36-66) % Lymph % (Auto) (24-44) % Forrest % (Auto) (2-6) % Eos % (Auto) (2-4) % Baso % (Auto) (0-1) % Sodium (140-148) mmol/L Potassium (3.6-5.2) mmol/L Chloride (100-108) mmol/L Carbon Dioxide (21-32) mmol/L Anion Gap (5.0-14.0) mmol/L BUN (7-18) mg/dL Creatinine (0.6-1.0) mg/dL Est Cr Clr Drug Dosing mL/min Estimated GFR (MDRD) (>60) Glucose (74-106) mg/dL Lactic Acid (0.4-2.0) mmol/L Calcium (8.5-10.1) mg/dL Total Bilirubin (0.2-1.0) mg/dL AST (15-37) U/L ALT (12-78) U/L Alkaline Phosphatase (46-116) U/L Troponin I (0.000-0.056) ng/mL Total Protein (6.4-8.2) g/dL Albumin (3.4-5.0) g/dL Globulin (2.3-3.5) g/dL Albumin/Globulin Ratio (1.2-2.2) Lipase (73-393) U/L Urine Color Yellow Urine Appearance Slightly cloudy Urine pH 8.0 (4.5-8.0) Ur Specific Lam[place] 1.005 L (1.008-1.030) Urine Protein Negative (NEGATIVE) mg/dL Urine Glucose (UA) Normal (NEGATIVE) mg/dL Urine Ketones Negative (NEGATIVE) mg/dL Urine Occult Blood Negative (NEGATIVE) Urine Nitrite Negative (NEGATIVE) Urine Bilirubin Negative (NEGATIVE) Urine Urobilinogen Normal (NORMAL) mg/dL Ur Leukocyte Esterase Negative (NEGATIVE) Urine RBC 0-5 (0-5) Urine WBC 0-5 (0-5) Ur Epithelial Cells Rare Amorphous Sediment Not seen Urine Bacteria Many Urine Mucus Not seen Result Diagrams: 09/03/18 19:40 09/03/18 19:40 - Problem List (1) Partial small bowel obstruction SNOMED Code(s): 688552739 ICD Code: K56.600 - PARTIAL INTESTINAL OBSTRUCTION, UNSPECIFIED TO CAUSE Status: Acute Current Visit: Yes (2) Hx of laparoscopic partial gastrectomy SNOMED Code(s): 031677207, 376897886 ICD Code: Z90.3 - ACQUIRED ABSENCE OF STOMACH [PART OF] Status: Chronic Current Visit: No (3) Essential hypertension SNOMED Code(s): 46248779 ICD Code: I10 - ESSENTIAL (PRIMARY) HYPERTENSION Status: Chronic Current Visit: No Problem List Initiated/Reviewed/Updated: Yes Orders Last 24hrs: Active Orders 24 hr Category Date Time Status Patient Status [ADT] Routine ADT 09/03/18 21:55 Active Height and Weight [RC] 0500 Care 09/03/18 21:56 Active Intake and Output [RC] QSHIFT Care 09/03/18 21:57 Active Oxygen Therapy [RC] PRN Care 09/03/18 21:55 Active Oxygen Therapy [RC] PRN Care 09/03/18 21:56 Active Peripheral IV Care [RC] . DIRECTED Care 09/03/18 19:34 Active VTE/DVT Education [RC] Per Unit Routine Care 09/03/18 21:55 Active VTE/DVT Education [RC] Per Unit Routine Care 09/03/18 21:56 Active Vital Signs [RC] Q4H Care 09/03/18 21:55 Active Full Liquid Diet [DIET] Diet 09/04/18 Dinner Ordered Nothing per Oral Now Diet [DIET] Diet 09/03/18 Breakfast Active Abdomen 2V AP Flat Upright [CR] Timed Exams 09/05/18 04:00 Ordered Albuterol [Ventolin HFA] Med 09/03/18 21:59 Active 0 gm INH QID PRN Bisacodyl [Dulcolax] Med 09/04/18 10:00 Once 10 mg PO ONETIME ONE Lactated Ringers [Ringers, Lactated] 1,000 ml Med 09/03/18 22:00 Active IV ASDIRECTED Losartan [Cozaar] Med 09/04/18 09:00 Active 50 mg PO DAILY Magnesium Hydroxide [Milk of Magnesia] Med 09/04/18 09:00 Once 30 ml PO ONETIME ONE Mometasone Furoate 200mcg [Asmanex HFA 200mcg] Med 09/04/18 08:00 Active 2 gm INH BIDRT Ondansetron [Zofran] Med 09/03/18 21:56 Active 4 mg IV Q4H PRN Pantoprazole [ProTONIX IV] Med 09/04/18 09:00 Active 40 mg IVPUSH Q12H Sodium Chloride 0.9% [Saline Flush] Med 09/03/18 19:34 Active 10 ml FLUSH ASDIRECTED PRN amLODIPine [Norvasc] Med 09/04/18 09:00 Active 5 mg PO DAILY fentaNYL [Sublimaze] Med 09/03/18 21:58 Active 50 mcg IVPUSH Q2H PRN hydroCHLOROthiazide Med 09/04/18 09:00 Active 12.5 mg PO DAILY Peripheral IV Insertion Adult [OM.PC] Urgent Oth 09/03/18 19:34 Ordered Sequential Compression Device [OM.PC] Per Unit Routine Oth 09/03/18 21:57 Ordered Resuscitation Status Routine Resus Stat 09/03/18 21:55 Ordered Medication Orders Albuterol (Ventolin Hfa) 0 gm INH QID PRN PRN Reason: Wheezing Amlodipine Besylate (Norvasc) 5 mg PO DAILY BETY Bisacodyl (Dulcolax) 10 mg PO ONETIME ONE Stop: 09/04/18 10:01 Fentanyl (Sublimaze) 50 mcg IVPUSH Q2H PRN PRN Reason: Pain (severe 7-10) Hydrochlorothiazide (Hydrochlorothiazide) 12.5 mg PO DAILY [facility] Lactated Ringer's (Ringers, Lactated) 1,000 mls @ 125 mls/hr IV ASDIRECTED BETY Last Admin: 09/03/18 23:49 Dose: 125 mls/hr Losartan Potassium (Cozaar) 50 mg PO DAILY [facility] Magnesium Hydroxide (Milk Of Magnesia) 30 ml PO ONETIME ONE Stop: 09/04/18 09:01 Mometasone Furoate (Asmanex Hfa 200mcg) 2 gm INH BIDRT BETY Ondansetron HCl (Zofran) 4 mg IV Q4H PRN PRN Reason: Nausea/Vomiting Pantoprazole Sodium (Protonix Iv) 40 mg IVPUSH Q12H BETY Sodium Chloride (Saline Flush) 10 ml FLUSH ASDIRECTED PRN PRN Reason: Keep Vein Open Last Admin: 09/03/18 20:34 Dose: 10 ml Assessment: High Grade Partial Small Bowel Obstruction Plan: Rx MOM 30 mls po now Rx Dulcolax Tab 10 mg po 1 hour after MOM Full Liquid Diet at the evening meal Rx Protonix 40 mg bid IV Push Flat and Upright Abdominal X Ray - 09/05/18 at 0400. Evaluate prn or in AM Dixie Luke 09/04/18
[2018-09-04] MEDS: Mometasone Furoate HFA 200 mcg/Puff 13 GM Inhaler INH SCH ×2 (07:58→20:25)
[2018-09-04] MEDS: Lactated Ringers 1,000 ML IV SCH ×3 (07:59→23:27)
[2018-09-04] MEDS: Losartan 50 MG Tab PO SCH (08:43)
[2018-09-04] MEDS: Hydrochlorothiazide 12.5 MG Cap PO SCH (08:44)
[2018-09-04] MEDS: amLODIPine 5 MG Tab PO SCH (08:44)
[2018-09-04] MEDS: Pantoprazole 40 MG Vial IVPUSH SCH ×2 (08:44→20:24)
[2018-09-04] MEDS ORDERED: Magnesium Hydroxide 400 MG/5 ML Susp 30 ML Cup PO ONE (09:00)
[2018-09-04] MEDS ORDERED: Bisacodyl 5 MG Tab PO ONE (10:00)
--- NOTE | 2018-09-05 05:27 | CRLCR ---
INDICATION: Follow up small bowel obstruction. COMPARISON: 09/04/2018. FINDINGS/IMPRESSION: There has been little change in the bowel gas pattern, again showing nonspecific mildly prominent gas within small and large bowel loops, and a prominent volume of stool within the colon. Mild ileus versus partial small bowel obstruction are considerations. Postoperative changes are again seen in the left abdomen. A right hip prosthesis and spinal degenerative changes are noted. Dictated by Santi Francois MD @ 09/05/2018 5:26:28 AM Dictated by: Santi Francois MD @ 09/05/2018 05:26:37 (Electronically Signed)
[2018-09-05 07:50] VITALS: BP 145/61; PULSE 49
[2018-09-05] MEDS: Mometasone Furoate HFA 200 mcg/Puff 13 GM Inhaler INH SCH (07:54)
[2018-09-05] MEDS: Hydrochlorothiazide 12.5 MG Cap PO SCH (08:03)
[2018-09-05] MEDS: Losartan 50 MG Tab PO SCH (08:03)
[2018-09-05] MEDS: Pantoprazole 40 MG Vial IVPUSH SCH (08:03)
[2018-09-05] MEDS: amLODIPine 5 MG Tab PO SCH (08:03)
--- NOTE | 2018-09-05 08:56 | DISCH ---
ADMISSION DIAGNOSES: Abdominal pain, high-grade partial small bowel obstruction, status post partial gastrectomy, peptic ulcer disease, hypertension, unspecified surgical malabsorption, B12 deficiency, and B complex deficiency. DISCHARGE DIAGNOSES: Resolution of partial small bowel obstruction using conservative measures. HISTORY: Felisha Calle is a pleasant 77-year-old female who developed severe abdominal pain after eating lunch with her sister. The pain did resolve somewhat. She went home, but later in the evening, the pain increased and she went to the emergency room. She had a CT scan and abdominal x-ray, which revealed a high-grade partial small bowel obstruction. She was admitted into the hospital on 09/03/2018. She was n.p.o., given IV fluids and pain medications. By the next morning 09/04/2018, the pain had decreased. She was started on a full liquid diet and remained to have IV fluids. She required nothing for pain. She was given bowel stimulation and on 09/05/2018, she was able to be discharged to home. REVIEW OF SYSTEMS: GENERAL: Denies any fever, chills, night sweats, or fatigue. Weight has been stable. NECK: Negative. HEART: No chest pain, shortness of breath, fast or irregular heartbeat. LUNGS: No cough. ABDOMEN: As above. Passing flatus. Denies any pain. No nausea, vomiting, or heartburn. GENITOURINARY: Negative for UTI signs and symptoms. EXTREMITIES: Without peripheral edema. NEURO: Intact. No headache, dizziness, or loss of coordination. PSYCHIATRIC: Negative for depression, anxiety, or insomnia. SKIN: Without rash. Remainder of review of systems negative for any pertinent positives and negatives. OBJECTIVE: GENERAL: Felisha Calle is a pleasant 77-year-old female. VITAL SIGNS: Height is 5 feet 4.96 inches. Weight is 145 pounds. TPR 96.8, 50, 14, blood pressure 128/73. HEENT: Negative. NECK: Supple. HEART: Regular rate and rhythm. LUNGS: Clear. ABDOMEN: Soft, nontender, and nondistended. EXTREMITIES: Without peripheral edema. NEURO: Intact. SKIN: Without rash. PSYCHIATRIC: Mood and affect appropriate. DISPOSITION: Discharged to home. CONDITION: Stable and improving. FOLLOWUP APPOINTMENT: Dixie Warner PA-C, on 09/17/2018 at 11 a.m. DISCHARGE MEDICATIONS: New prescription: MiraLAX 17 g oral twice daily for 30 days, 11 refills. She is to resume her home medications: 1. Proventil inhaler 2 puffs 4 times a day. 2. Biotin 5000 mcg oral daily. 3. Dulcolax 10 mg twice daily p.r.n. 4. Calcium citrate 1 tablet twice daily. 5. Vitamin D3 of 5000 international units daily. 6. Colace 100 mg oral twice daily. 7. Flovent HFA 220 mcg 2 puffs inhalation twice daily. 8. Iron supplement 1 daily. 9. Losartan/hydrochlorothiazide (Hyzaar) 50/12.5 mg 1 daily. 10.Ocuvite Multi tablet 1 daily. 11.Simvastatin (Zocor) 40 mg oral daily. 12.Sucralfate (Carafate) 1 g oral 4 times a day. 13.Triamcinolone acetonide (Kenalog) 0.1% cream 1 applicator topical 3 times a day. 14.Vitamin B complex 1 daily. 15.Zinc 50 mg oral daily. 16.Amlodipine (Norvasc) 5 mg oral daily. 17.Metronidazole 0.75% gel 1 dose topical twice daily. DISCHARGE INSTRUCTIONS: Diet after discharge: Drink 8 to 10 glasses of water a day. Full liquid diet for 3 days then advance to a GI soft low residue and low-fiber diet and continue with this diet long-term. Activity: As tolerated. Driving: May drive today. Notify provider if any pain, nausea or vomiting.
== END 2018-09-05 11:05 | disposition home or self-care (01) | DRG 389 ==
LOC: JP.ED 18:42 → JP.MS 21:55
PROVIDERS: ADMIT Surgery; ATTEND Surgery
DX: K56.609 Unspecified intestinal obstruction, unspecified as to partial versus complete obstruction (principal); K56.600 Partial intestinal obstruction, unspecified as to cause; E53.0 Riboflavin deficiency; Z90.3 Acquired absence of stomach [part of]; I10 Essential (primary) hypertension; H54.7 Unspecified visual loss; E78.00 Pure hypercholesterolemia, unspecified; J45.909 Unspecified asthma, uncomplicated; K21.9 Gastro-esophageal reflux disease without esophagitis; R32 Unspecified urinary incontinence; M19.90 Unspecified osteoarthritis, unspecified site; D64.9 Anemia, unspecified; E61.1 Iron deficiency; L40.9 Psoriasis, unspecified; Z85.21 Personal history of malignant neoplasm of larynx; Z92.3 Personal history of irradiation; Z86.14 Personal history of Methicillin resistant Staphylococcus aureus infection; Z96.641 Presence of right artificial hip joint; Z88.8 Allergy status to other drugs, medicaments and biological substances; Z88.2 Allergy status to sulfonamides; Z79.899 Other long term (current) drug therapy; Z12.31 Encounter for screening mammogram for malignant neoplasm of breast
CPT/HCPCS: 36415; 74177; 77063 ×2; 77067 ×2; 80053; 83605; 83690; 84484; 85025; 96361; 96374; 96375; 99285 ×2; J2405; J3010; J7030; J7120; Q9967; 74019; 81001; A9270-GY; C9113; J3490

== ENCOUNTER 2018-09-24 21:01 | Emergency (ER) | payer MEDICARE, BC ==
[2018-09-24 21:28] VITALS: BP 138/78; PULSE 77
[2018-09-24] MEDS ORDERED: Iopamidol 612 MG/ML 100 ML Bottle IV SCH (22:00)
[2018-09-24] MEDS ORDERED: Sodium Chloride 0.9% 80 ML IV SCH (22:00)
[2018-09-24] MEDS: Sodium Chloride 0.9% 10 ML Syringe FLUSH PRN ×2 (22:20→22:40)
--- NOTE | 2018-09-24 22:57 | CRLCT ---
Indication: Abdominal pain, rule out obstruction Technique: Contrast enhanced axial CT imaging through the abdomen and pelvis. Sagittal and coronal reconstructions are provided. 100 cc Isovue-300 contrast was administered intravenously. Comparison: CT abdomen pelvis with contrast 09/03/2018 Findings: The included lung bases are clear. There is no significant abnormality of the liver, gallbladder, spleen, or adrenal glands. There is normal enhancement of the portal venous system. There is fatty atrophy of the pancreas. There is normal renal parenchymal enhancement without suspicious lesions. There is no hydronephrosis. Surgical changes are noted at the gastroesophageal junction. There is small hiatal hernia. Small bowel anastomosis is noted in the left mid abdomen. There are no abnormally dilated small bowel loops. The appendix is noninflamed. The colon is unremarkable. There is no abdominal lymphadenopathy. No significant inflammatory changes are demonstrated in the mesentery. There is no significant free intraperitoneal fluid. There is no pneumoperitoneum. The uterus is surgically absent. There is extensive atherosclerotic disease of the abdominal aorta. Degenerative changes are noted in the lumbar spine, most pronounced at L3-L4 and L5-S1. Impression: No acute process demonstrated in the abdomen and pelvis. No evidence of small-bowel obstruction. Please note that all CT scans at this facility use dose modulation, iterative reconstruction, and/or weight-based dosing when appropriate to reduce radiation dose to as low as reasonably achievable. Dictated by Demetrius Nobles MD @ Sep 24 2018 10:56PM Signed by Dr. Demetrius Nobles @ Sep 24 2018 10:56PM
[2018-09-24] MEDS ORDERED: Simethicone 80 MG Tab.Chew PO ONE (23:07)
--- NOTE | 2018-09-24 23:10 | EDM.PDOC ---
ED HPI GENERAL MEDICAL PROBLEM - General Chief Complaint: Gastrointestinal Problem Stated Complaint: ADM PAIN Time Seen by Provider: 09/24/18 21:50 Source of Information: Reports: Patient History Limitations: Reports: No Limitations - History of Present Illness INITIAL COMMENTS - FREE TEXT/NARRATIVE: This patient comes in complaining of abdominal pain. It's pretty much all over the whole abdomen and she thinks she may have a small bowel obstruction again. She was treated for small bowel obstruction recently. She has no fever and there is no nausea or vomiting. 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: Reports: Other (see below) Other Treatments WAFER FABRICATOR: unknown Abdomen Pain Score (Numeric/FACES): 5 - Related Data Allergies Allergy/AdvReac Type Severity Reaction Status Date / Time fluticasone propionate Allergy Unknown Difficulty Verified 09/24/18 21:21 [From Advair Diskus] Breathing salmeterol xinafoate Allergy Unknown Difficulty Verified 09/24/18 21:21 [From Advair Diskus] Breathing Sulfa (Sulfonamide Allergy Rash Verified 09/24/18 21:21 Antibiotics) Home Meds: Home Meds Albuterol [Proventil HFA] 2 puff INH QID PRN 08/24/13 [History] Losartan/Hydrochlorothiazide [Hyzaar 50-12.5 Tablet] 1 each PO DAILY 08/24/13 [ History] Triamcinolone Acetonide [Kenalog 0.1% Crm] 1 applic TOP TID PRN 08/24/13 [ History] amLODIPine [Norvasc] 5 mg PO DAILY 08/24/13 [History] Mv-Mn/FA/Vit K/Lycop/Lut/Zeaxa [Ocuvite Eye + Multi Tablet] 1 tab PO DAILY 06/25 [History] Simvastatin [Zocor] 40 mg PO DAILY 07/10/16 [History] metroNIDAZOLE [metroNIDAZOLE 0.75% Gel] 1 dose TOP BID 07/10/16 [History] Biotin 5,000 mcg PO DAILY 10/04/16 [History] Calcium Citrate/Vitamin D3 [Calcium Citrate - Vit D Tablet] 1 each PO BID [History] Cholecalciferol (Vitamin D3) [Vitamin D] 5,000 unit PO DAILY 10/04/16 [History] Vitamin B Complex [B Complex] 1 each PO DAILY 10/04/16 [History] Zinc 50 mg PO DAILY 06/28/17 [History] Acetaminophen/HYDROcodone [[place] 325-5 MG] 1 tab PO Q4H PRN #40 tablet 04/28/18 [Rx] Docusate Sodium [Colace] 100 mg PO BID #100 cap 04/28/18 [Rx] Iron,Carbonyl/Ascorbic Acid [Iron 100-Vitamin C Tablet] 1 each PO DAILY #0 04/28 [Rx] Bisacodyl [Dulcolax] 10 mg PO BID PRN 09/03/18 [History] Fluticasone Propionate [Flovent HFA 220 MCG] 2 puff INH BID 09/04/18 [History] Polyethylene Glycol 3350 [MiraLAX] 17 gm PO BID #60 packet 09/05/18 [Rx] Past Medical History HEENT History: Reports: Allergic Rhinitis, Impaired Vision Cardiovascular History: Reports: High Cholesterol, Hypertension Respiratory History: Reports: Asthma Gastrointestinal History: Reports: GERD Genitourinary History: Reports: Urinary Incontinence 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: Dysfunctional Uterine Bleeding, Fibroids, Musculoskeletal History: Reports: Osteoarthritis Hematologic History: Reports: Anemia, B12 Deficiency, Blood Transfusion(s), Iron Deficiency Oncologic (Cancer) History: Reports: Other (See Below) Other Oncologic History: vocal cords Dermatologic History: Reports: Psoriasis - Infectious Disease History Infectious Disease History: Reports: Chicken Pox Other Infectious Disease History: tested positive for MRSA with nasal swab - Past Surgical History Head Surgeries/Procedures: Reports: None HEENT Surgical History: Reports: Other (See Below) Other HEENT Surgeries/Procedures: 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 gastrectomy. Had a revision of her ba Female Surgical History: Reports: Breast Biopsy, Hysterectomy, Oophorectomy, Other (See Below) Other Female Surgeries/Procedures: bladder suspension x 2 Musculoskeletal Surgical History: Reports: Arthroscopic Knee, Hip Replacement, Other (See Below) Other Musculoskeletal Surgeries/Procedures:: bilateral Bunionectomy. right hip Social & Family History - Family History Family Medical History: Noncontributory Cardiac: Reports: CAD - Tobacco Use Smoking Status *Q: Never Smoker Second Hand Smoke Exposure: No - Caffeine Use Caffeine Use: Reports: Coffee - Recreational Drug Use Recreational Drug Use: No ED ROS GENERAL - Review of Systems Review Of Systems: See Below Constitutional: Denies: Fever, Chills HEENT: Reports: No Symptoms Respiratory: Reports: No Symptoms Cardiovascular: Reports: No Symptoms Endocrine: Reports: No Symptoms GI/Abdominal: Reports: Abdominal Pain. Denies: Constipation, Diarrhea, Vomiting : Reports: No Symptoms Musculoskeletal: Reports: No Symptoms Skin: Reports: No Symptoms Neurological: Reports: No Symptoms ED EXAM, GI/ABD - Physical Exam Exam: See Below Exam Limited By: No Limitations General Appearance: Alert, WD/WN, Mild Distress Eyes: Bilateral: Normal Appearance Throat/Mouth: Normal Inspection Respiratory/Chest: Lungs Clear Cardiovascular: Regular Rate, Rhythm, No Murmur GI/Abdominal Exam: Normal Bowel Sounds, Soft, Other (Tenderness and some distention in the right lower quadrant) Extremities: Normal Inspection Neurological: Alert, Oriented Course - Vital Signs Last Recorded V/S: Last Vital Signs Temp 36.1 C 09/24/18 21:26 Pulse 77 09/24/18 21:26 Resp 12 09/24/18 21:26 BP 138/78 09/24/18 21:26 Pulse Ox 96 09/24/18 21:26 - Orders/Labs/Meds Orders: Active Orders 24 hr Category Date Time Status Iopamidol [Isovue-300 (61%)] Med 09/24/18 22:00 Active 100 ml IV . DIRECTED Sodium Chloride 0.9% [Normal Saline] 80 ml Med 09/24/18 22:00 Active IV ASDIRECTED Sodium Chloride 0.9% [Saline Flush] Med 09/24/18 21:51 Active 10 ml FLUSH ASDIRECTED PRN Saline Lock Insert [OM.PC] Urgent Oth 09/24/18 21:51 Ordered Medication Orders Sodium Chloride (Normal Saline) 80 mls @ 3 mls/sec IV ASDIRECTED BETY Last Admin: 09/24/18 22:20 Dose: 3 mls/sec Iopamidol (Isovue-300 (61%)) 100 ml IV . DIRECTED BETY Last Admin: 09/24/18 22:20 Dose: 100 ml Sodium Chloride (Saline Flush) 10 ml FLUSH ASDIRECTED PRN PRN Reason: Keep Vein Open Last Admin: 09/24/18 22:20 Dose: 10 ml Labs: Laboratory Tests 09/24/18 09/24/18 09/24/18 Range/Units 22:01 22:01 22:56 WBC 6.0 (4.5-11.0) K/uL RBC 4.50 (3.30-5.50) M/uL Hgb 14.5 (12.0-15.0) g/dL Hct 42.1 (36.0-48.0) % MCV 94 (80-98) fL MCH 32 H (27-31) pg MCHC 34 (32-36) % Plt Count 180 (150-400) K/uL Neut % (Auto) 53 (36-66) % Lymph % (Auto) 28 (24-44) % [place] % (Auto) 12 H (2-6) % Eos % (Auto) 8 H (2-4) % Baso % (Auto) 0 (0-1) % Sodium 140 (140-148) mmol/L Potassium 3.4 L (3.6-5.2) mmol/L Chloride 105 (100-108) mmol/L Carbon Dioxide 24 (21-32) mmol/L Anion Gap 14.4 H (5.0-14.0) mmol/L BUN 21 H (7-18) mg/dL Creatinine 0.9 (0.6-1.0) mg/dL Est Cr Clr Drug Dosing 46.89 mL/min Estimated GFR (MDRD) > 60 (>60) Glucose 152 H (74-106) mg/dL Calcium 8.8 (8.5-10.1) mg/dL Total Bilirubin 0.4 (0.2-1.0) mg/dL AST 64 H (15-37) U/L ALT 95 H (12-78) U/L Alkaline Phosphatase 142 H (46-116) U/L Total Protein 6.2 L (6.4-8.2) g/dL Albumin 3.3 L (3.4-5.0) g/dL Globulin 2.9 (2.3-3.5) g/dL Albumin/Globulin Ratio 1.1 L (1.2-2.2) Urine Color Yellow (YELLOW) Urine Appearance Clear (CLEAR) Urine pH 7.0 (5.0-8.0) Ur Specific [place] 1.015 (1.008-1.030) Urine Protein Negative (NEGATIVE) mg/dL Urine Glucose (UA) 250 H (NEGATIVE) mg/dL Urine Ketones Negative (NEGATIVE) mg/dL Urine Occult Blood Negative (NEGATIVE) Urine Nitrite Negative (NEGATIVE) Urine Bilirubin Negative (NEGATIVE) Urine Urobilinogen 0.2 (0.2-1.0) EU/dL Ur Leukocyte Esterase Trace H (NEGATIVE) Urine RBC Not seen (0-5) Urine WBC 0-5 (0-5) Ur Epithelial Cells Not seen Amorphous Sediment Not seen Urine Bacteria Moderate Urine Mucus Not seen Meds: Medications Generic Name Dose Route Start Last Admin Trade Name Freq PRN Reason Stop Dose Admin Sodium Chloride 80 mls @ 3 mls/sec 09/24/18 22:00 09/24/18 22:20 Normal Saline IV 3 mls/sec ASDIRECTED BETY Administration Iopamidol 100 ml 09/24/18 22:00 09/24/18 22:20 Isovue-300 (61%) IV 100 ml . DIRECTED BETY Administration Sodium Chloride 10 ml 09/24/18 21:51 09/24/18 22:20 Saline Flush FLUSH 10 ml ASDIRECTED PRN Administration Keep Vein Open Discontinued Medications Generic Name Dose Route Start Last Admin Trade Name Freq PRN Reason Stop Dose Admin Simethicone 160 mg 09/24/18 23:07 Simethicone PO 09/24/18 23:08 ONETIME ONE - Radiology Interpretation Free Text/Narrative:: Abdominal CT showed no acute abnormalities. There does seem to be a little bit increased stool in the right lower quadrant as well as a little bit of gaseous distention which probably accounts for her pain Departure - Departure Time of Disposition: 23:08 Disposition: Home, Self-Care 01 Condition: Fair Clinical Impression: Abdominal pain, Constipation - Discharge Information Referrals: Mark Conner MD [Primary Care Provider] - Forms: ED Department Discharge Additional Instructions: Here pain is probably due from a little bit of constipation and increased gas in the colon down on the lower right side of your abdomen. This is right where the colon begins. You were given side method, 160 mg. This is the active ingredient in Gas-X. You can use Gas-X along with Yazmin lax to both clear out your bowels and help with the gas pains. If you feel like you're getting worse either see your Dr. or return to the ER. - My Orders Last 24 Hours: My Active Orders 09/24/18 21:51 Sodium Chloride 0.9% [Saline Flush] 10 ml FLUSH ASDIRECTED PRN Saline Lock Insert [OM.PC] Urgent 09/24/18 22:00 Iopamidol [Isovue-300 (61%)] 100 ml IV . DIRECTED Sodium Chloride 0.9% [Normal Saline] 80 ml IV ASDIRECTED - Assessment/Plan Last 24 Hours: My Active Orders 09/24/18 21:51 Sodium Chloride 0.9% [Saline Flush] 10 ml FLUSH ASDIRECTED PRN Saline Lock Insert [OM.PC] Urgent 09/24/18 22:00 Iopamidol [Isovue-300 (61%)] 100 ml IV . DIRECTED Sodium Chloride 0.9% [Normal Saline] 80 ml IV ASDIRECTED
== END 2018-09-24 23:47 | disposition home or self-care (01) ==
LOC: JP.ED 21:01
DX: K59.00 Constipation, unspecified (principal); I10 Essential (primary) hypertension; J45.909 Unspecified asthma, uncomplicated; E78.00 Pure hypercholesterolemia, unspecified; M19.90 Unspecified osteoarthritis, unspecified site; D64.9 Anemia, unspecified; Z88.8 Allergy status to other drugs, medicaments and biological substances; Z88.2 Allergy status to sulfonamides; Z79.899 Other long term (current) drug therapy; Z79.02 Long term (current) use of antithrombotics/antiplatelets; Z79.51 Long term (current) use of inhaled steroids
CPT/HCPCS: 36415; 74177; 80053; 81001; 85025; 99284; A9270; J7030; Q9967; 99283

== ENCOUNTER 2019-11-29 15:30 | Emergency (ER) | payer MEDICARE, BC ==
[2019-11-29 15:52] VITALS: BP 180/73; PULSE 70
[2019-11-29] MEDS ORDERED: Lidocaine 1% with EPINEPHrine 1:100,000 50 ML MDV INFILT STA (16:33)
[2019-11-29] MEDS ORDERED: Bacitracin Oint 1 GM U/D Packet TOP ONE (16:33)
--- NOTE | 2019-11-29 16:34 | EDM.PDOC ---
ED HPI GENERAL MEDICAL PROBLEM - General Chief Complaint: Laceration Stated Complaint: FELL AT HOME HURT HEAD Time Seen by Provider: 11/29/19 16:20 Source of Information: Reports: Patient, Family, RN Notes Reviewed History Limitations: Reports: No Limitations - History of Present Illness INITIAL COMMENTS - FREE TEXT/NARRATIVE: Felisha presents today for laceration to the left forehead. She states she was walking down the steps to the basement and she missed the last step, falling forward and striking her head on an edge. She denies LOC, headache, change in vision, nausea, vomiting or other concerns. Felisha's daughter was with her at the time of the fall, she repots Felisha did not have any LOC and was alert the entire time. Tetanus up to date. Forehead Pain Score (Numeric/FACES): 2 - Related Data Allergies Allergy/AdvReac Type Severity Reaction Status Date / Time fluticasone propionate Allergy Unknown Difficulty Verified 11/29/19 15:55 [From Advair Diskus] Breathing salmeterol xinafoate Allergy Unknown Difficulty Verified 11/29/19 15:55 [From Advair Diskus] Breathing Sulfa (Sulfonamide Allergy Rash Verified 11/29/19 15:55 Antibiotics) Home Meds: Home Meds Albuterol [Proventil HFA] 2 puff INH QID PRN 08/24/13 [History] Losartan/Hydrochlorothiazide [Hyzaar 50-12.5 Tablet] 1 each PO DAILY 08/24/13 [History] amLODIPine [Norvasc] 5 mg PO DAILY 08/24/13 [History] Mv-Mn/FA/Vit K/Lycop/Lut/Zeaxa [Ocuvite Eye + Multi Tablet] 1 tab PO DAILY 06/25/16 [History] Simvastatin [Zocor] 40 mg PO DAILY 07/10/16 [History] metroNIDAZOLE [metroNIDAZOLE 0.75% Gel] 1 dose TOP BID 07/10/16 [History] Biotin 5,000 mcg PO DAILY 10/04/16 [History] Calcium Citrate/Vitamin D3 [Calcium Citrate - Vit D Tablet] 1 each PO BID 10/04/16 [History] Cholecalciferol (Vitamin D3) [Vitamin D] 5,000 unit PO DAILY 10/04/16 [History] Vitamin B Complex [B Complex] 1 each PO DAILY 10/04/16 [History] Zinc 50 mg PO DAILY 06/28/17 [History] Iron,Carbonyl/Ascorbic Acid [Iron 100-Vitamin C Tablet] 1 each PO DAILY #0 04/28/18 [Rx] Fluticasone Propionate [Flovent HFA 220 MCG] 2 puff INH BID 09/04/18 [History] Past Medical History HEENT History: Reports: Allergic Rhinitis, Impaired Vision Cardiovascular History: Reports: High Cholesterol, Hypertension Respiratory History: Reports: Asthma Gastrointestinal History: Reports: GERD Genitourinary History: Reports: Urinary Incontinence 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: Reports: Dysfunctional Uterine Bleeding, Fibroids, Musculoskeletal History: Reports: Osteoarthritis Hematologic History: Reports: Anemia, B12 Deficiency, Blood Transfusion(s), Iron Deficiency Oncologic (Cancer) History: Reports: Other (See Below) Other Oncologic History: vocal cords Dermatologic History: Reports: Psoriasis - Infectious Disease History Infectious Disease History: Reports: Chicken Pox Other Infectious Disease History: tested positive for MRSA with nasal swab - Past Surgical History Head Surgeries/Procedures: Reports: None HEENT Surgical History: Reports: Other (See Below) Other HEENT Surgeries/Procedures: 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 gastrectomy. Had a revision of her ba Female Surgical History: Reports: Breast Biopsy, Hysterectomy, Oophorectomy, Other (See Below) Other Female Surgeries/Procedures: bladder suspension x 2 Musculoskeletal Surgical History: Reports: Arthroscopic Knee, Hip Replacement, Other (See Below) Other Musculoskeletal Surgeries/Procedures:: bilateral Bunionectomy. right hip Oncologic Surgical History: Reports: None Social & Family History - Family History Family Medical History: Noncontributory Cardiac: Reports: CAD - Tobacco Use Tobacco Use Status *Q: Never Tobacco User Second Hand Smoke Exposure: No - Caffeine Use Caffeine Use: Reports: Soda, Tea - Recreational Drug Use Recreational Drug Use: No ED ROS GENERAL - Review of Systems Review Of Systems: See Below Constitutional: Reports: Other (Pain to laceration of left foread, bleeding controlled. ) Respiratory: Reports: No Symptoms Cardiovascular: Reports: No Symptoms Endocrine: Reports: No Symptoms GI/Abdominal: Reports: No Symptoms : Reports: No Symptoms Musculoskeletal: Reports: No Symptoms Skin: Reports: Bruising (to bilateral knees), Wound (laceration left forehead, bleeding controlled. ) Neurological: Reports: No Symptoms Psychiatric: Reports: No Symptoms Hematologic/Lymphatic: Reports: No Symptoms Immunologic: Reports: No Symptoms ED EXAM, SKIN/RASH Exam: See Below Exam Limited By: No Limitations General Appearance: Alert, WD/WN, No Apparent Distress Eye Exam: Bilateral Eye: EOMI, Normal Inspection, PERRL Ears: Normal External Exam, Normal Canal, Hearing Grossly Normal, Normal TMs Nose: Normal Inspection, Normal Mucosa, No Blood Throat/Mouth: Normal Inspection, Normal Lips, Normal Gums, Normal Oropharynx, Normal Voice, No Airway Compromise Head: Atraumatic, Normocephalic Neck: Normal Inspection, Supple, Non-Tender, Full Range of Motion. No: Lymphadenopathy (R), Lymphadenopathy (L) Respiratory/Chest: No Respiratory Distress, Lungs Clear, Normal Breath Sounds, No Accessory Muscle Use, Chest Non-Tender. No: Crackles, Rales, Rhonchi, Wheezing Cardiovascular: Normal Peripheral Pulses, Regular Rate, Rhythm, No Edema, No Gallop, No Murmur, No Rub Peripheral Pulses: 3+: Radial (L), Radial (R) GI/Abdominal: Normal Bowel Sounds, Soft, Non-Tender, No Organomegaly, No Distention, No Mass Back Exam: Normal Inspection, Full Range of Motion. No: CVA Tenderness (R), CVA Tenderness (L) Extremities: Normal Range of Motion, Non-Tender, No Pedal Edema, Normal Capillary Refill, Other (small areas of ecchymosis bilatearl knees/patella) Neurological: Alert, Oriented, Normal Cognition, Normal Gait, Normal Reflexes, No Motor/Sensory Deficits, Other (Balance steady, GCS 15) Psychiatric: Normal Affect, Normal Mood Skin: Warm, Dry, No Rash, Ecchymosis (to bilateral knees, no pain ), Wound/Incision (2cm linear laceration, deep left forehead. No depression of skull noted. Bleeding controlled. ) Location, Skin: Head Characteristics: Linear Associated features: Tenderness Lymphatic: No Adenopathy ED SKIN PROCEDURES - Laceration/Wound Repair Left Forehead Appearance: Subcutaneous, Muscle, Clean Distal NVT: Neuro & Vascular Intact, No Tendon Injury Anesthetic Type: Local Local Anesthesia - Lidocaine (Xylocaine): 1% with EPI Local Anesthetic Volume: 1cc Skin Prep: Chlorhexidine (Hibiciens), Saline Saline Irrigation (cc's): 30 Exploration/Debridement/Repair: Wound Explored, In a Bloodless Field, Explored to Base, Foreign Material Removed, No Foreign Material Found Closed with: Sutures Lac/Wound length In cm: 2 Suture Size: 5-0 # of Sutures: 7 Suture Type: Prolene # of Sutures: 0 Suture Size: 6-0 # of Sutures: 2 Repaired with: Vicryl Drain Placement: Yes Sterile Dressing Applied: Nurse Tetanus Status Addressed: Yes Complications: No Progress/Comments: Patient tolerated well. Pressure dressing applied to surrounding contusion of laceration. Course - Vital Signs Last Recorded V/S: Last Vital Signs Temp 36.4 C 11/29/19 15:52 Pulse 70 11/29/19 15:52 Resp 16 11/29/19 15:52 BP 180/73 H 11/29/19 15:52 Pulse Ox 98 11/29/19 15:52 - Orders/Labs/Meds Meds: Medications Discontinued Medications Generic Name Dose Route Start Last Admin Trade Name Carlos Albertoq PRN Reason Stop Dose Admin Bacitracin 1 dose 11/29/19 16:33 11/29/19 16:37 Bacitracin Oint 1 Gm TOP 11/29/19 16:34 1 dose ONETIME ONE Administration Lidocaine/Epinephrine 2 ml 11/29/19 16:33 11/29/19 16:37 Xylocaine 1% With Epinephrine 1:100,000 INFILT 11/29/19 16:34 2 ml NOW STA Administration - Re-Assessments/Exams Free Text/Narrative Re-Assessment/Exam: Speech clear, no nausea or vomiting while in emergency room. Departure - Departure Time of Disposition: 17:15 Disposition: Home, Self-Care 01 Condition: Good Clinical Impression: Laceration of forehead without complication - Discharge Information *PRESCRIPTION DRUG MONITORING PROGRAM REVIEWED*: Not Applicable *COPY OF PRESCRIPTION DRUG MONITORING REPORT IN PATIENT EARLE: Not Applicable Instructions: Laceration Care, Adult Referrals: Mark Conner MD [Primary Care Provider] - Forms: ED Department Discharge Additional Instructions: You have been treated for a head injury without concussion and laceration to the forehead. Two subcutaneous sutures to the wound (will dissolve) and 7 sutures to the skin (will need to be removed in 7 days). Take acetaminophen as needed for pain. Apply bacitracin twice per day to wound. Wash face a usual. Keep covered with bandaid if there is a chance it will get dirty. Keep pressure dressing on area for 1 hour, remove. May use ice to contusion for swelling and comfort. Return to the emergency room for any worsening, issues or concerns. Sepsis Event Note (ED) - Evaluation Sepsis Screening Result: No Definite Risk - Focused Exam Vital Signs: Vital Signs Temp Pulse Resp BP Pulse Ox 11/29/19 15:52 36.4 C 70 16 180/73 H 98 11/29/19 15:51 36.4 C 70 16 180/73 H 98 - Assessment/Plan Assessment:: Laceration of forehead without complication GCS 15 during emergency room stay, neurological status intact, gait/balance steady Plan: Patient treated for a head injury without concussion and laceration to the forehead. Two subcutaneous sutures to the wound (will dissolve) and 7 sutures to the skin (will need to be removed in 7 days). Take acetaminophen as needed for pain. Apply bacitracin twice per day to wound. Wash face a usual. Keep covered with bandaid if there is a chance it will get dirty. Keep pressure dressing on area for 1 hour, remove. May use ice to contusion for swelling and comfort. Return to the emergency room for any worsening, issues or concerns.
== END 2019-11-29 17:34 | disposition home or self-care (01) ==
LOC: JP.ED 15:30
DX: S01.81XA Laceration without foreign body of other part of head, initial encounter (principal); S80.02XA Contusion of left knee, initial encounter; S80.01XA Contusion of right knee, initial encounter; I10 Essential (primary) hypertension; E78.00 Pure hypercholesterolemia, unspecified; J45.909 Unspecified asthma, uncomplicated; Z88.2 Allergy status to sulfonamides; Z88.8 Allergy status to other drugs, medicaments and biological substances; Z90.710 Acquired absence of both cervix and uterus; Z79.899 Other long term (current) drug therapy; W10.9XXA Fall (on) (from) unspecified stairs and steps, initial encounter; Y93.01 Activity, walking, marching and hiking
CPT/HCPCS: 12011; 99282-25

== ENCOUNTER 2023-05-13 16:48 | Emergency (ER) | payer MEDICARE, BC ==
[2023-05-13 17:28] VITALS: BP 166/78; PULSE 65
[2023-05-13] MEDS: Diphtheria,Pertussis(Acell),Tetanus Vaccine 0.5 ML Syringe IM ONE (18:18)
[2023-05-13] MEDS: Lidocaine 1% with EPINEPHrine 1:100,000 20 ML MDV INFILT ONE (18:19)
[2023-05-13] MEDS: Bacitracin Oint 1 GM U/D Packet TOP ONE (18:19)
== END 2023-05-13 19:19 | disposition home or self-care (01) ==
LOC: JP.ED 16:48
DX: S01.81XA Laceration without foreign body of other part of head, initial encounter (principal); S61.412A Laceration without foreign body of left hand, initial encounter; S61.411A Laceration without foreign body of right hand, initial encounter; E78.00 Pure hypercholesterolemia, unspecified; I10 Essential (primary) hypertension; K21.9 Gastro-esophageal reflux disease without esophagitis; J45.909 Unspecified asthma, uncomplicated; Z88.1 Allergy status to other antibiotic agents; Z88.2 Allergy status to sulfonamides; Z88.8 Allergy status to other drugs, medicaments and biological substances; Z79.51 Long term (current) use of inhaled steroids; Z86.19 Personal history of other infectious and parasitic diseases; Z23 Encounter for immunization; W01.0XXA Fall on same level from slipping, tripping and stumbling without subsequent striking against object, initial encounter
CPT/HCPCS: 12052; 90471; 90715; 99283-25